=== PATIENT | female | born 1960 | race Caucasian/White ===

== ENCOUNTER 2016-10-07 09:00 | Inpatient (IN) ==
[~2016-10-07 09:00] MED LIST: ALBUTEROL 2.5 MG/3 ML NEB RESP TX ONE; FAMOTIDINE 20 MG TABLET PO ONE; IPRATROPIUM 500 MCG/2.5 ML NEB RESP TX ONE; LORazepam 1 MG TABLET PO ONE; VANCOMYCIN INJ 1,000 MG in SODIUM CHLORIDE 0.9% 250 ML IV ONE
[2016-10-07 09:40] LABS: Apearance,Urine CLEAR (Clear); Bacteria,Urine Occasional /HPF (Few); Bilirubin,Urine Negative (Negative); Blood, Urine Negative (Negative); Glucose,Urine (UA) Negative (Negative); Ketones,Urine Negative (Negative); Mucus,Urine Moderate /LPF (Occasional); Nitrite,Urine Negative (Negative); Protein,Urine Negative; RBC,Urine 1 /HPF (0-4); Squamous Epithelial Cell,Urine Occasional /HPF (0-10); Urine Color Yellow (Yellow); Urine Specific Gravity 1.023 (1.001-1.035); WBC,Urine 4 /HPF (0-6)
[2016-10-07] MEDS ORDERED: ceFAZolin 1,000 MG VIAL ONE (09:50)
[2016-10-07] MEDS ORDERED: VANCOMYCIN 1,000 MG VIAL ONE (09:50)
[2016-10-07] MEDS ORDERED: SODIUM CHLORIDE 0.9% 250 ML IV ONE (09:51)
[2016-10-07] MEDS ORDERED: LORazepam 1 MG TABLET ONE (09:51)
[2016-10-07] MEDS ORDERED: FAMOTIDINE 20 MG TABLET ONE (09:51)
[2016-10-07] MEDS ORDERED: SODIUM CHLORIDE 0.9% 100 ML IV ONE ×2 (09:51→13:44)
--- NOTE | 2016-10-07 10:06 | History and Physical Update ---
History and Physical Update - History and Physical H&P was reviewed, the patient examined and there: are no changes in the patients condition since last H&P was completed.
[2016-10-07] MEDS ORDERED: TRANEXAMIC ACID 1,000 MG/10 ML VIAL IV ONE (10:08)
[2016-10-07] MEDS ORDERED: BACITRACIN OINT 0.9 GM PACK TOP ONE ×2 (10:21→10:25)
[2016-10-07] MEDS ORDERED: LACTATED RINGERS 1,000 ML IV SCH ×2 (10:30→14:00)
[2016-10-07] MEDS ORDERED: MORPHINE 10 MG/10 ML VIAL ONE ×2 (11:30→13:45)
[2016-10-07] MEDS ORDERED: ROPIVACAINE 0.5% 30 ML VIAL ONE (11:50)
[2016-10-07] MEDS ORDERED: hydrOXYzine HCL 25 MG/1 ML VIAL IM PRN (11:59)
[2016-10-07] MEDS ORDERED: diphenhydrAMINE 50 MG/1 ML VIAL IV PRN (11:59)
[2016-10-07] MEDS ORDERED: ONDANSETRON 4 MG/2 ML VIAL IV PRN ×2 (11:59→13:57)
[2016-10-07] MEDS ORDERED: ALBUTEROL/IPRATROPIUM 3 ML NEB RESP TX PRN (13:28)
[2016-10-07] MEDS ORDERED: NITROGLYCERIN SL 0.4 MG TABLET SL PRN (13:28)
[2016-10-07] MEDS ORDERED: EPIPEN IM PRN (13:28)
[2016-10-07] MEDS ORDERED: oxyCODONE/ACETAMINOPHEN 5-325 MG TABLET PO PRN ×3 (13:28→13:31)
[2016-10-07] MEDS ORDERED: ALPRAZolam 0.5 MG TABLET PO PRN (13:28)
[2016-10-07] MEDS ORDERED: DEXTROSE 50% 25 GM/50 ML VIAL IV PRN ×2 (13:30→18:12)
[2016-10-07] MEDS ORDERED: GLUCAGON 1 MG VIAL IM PRN ×2 (13:30→18:12)
[2016-10-07] MEDS ORDERED: MAGNESIUM HYDROXIDE SUSP 30 ML UDCUP PO PRN (13:31)
[2016-10-07] MEDS ORDERED: MORPHINE 2 MG/1 ML SYRINGE IV PRN ×2 (13:31)
[2016-10-07] MEDS ORDERED: oxyCODONE IR 5 MG TABLET PO PRN (13:31)
[2016-10-07] MEDS ORDERED: diphenhydrAMINE CAP 25 MG CAPSULE PO PRN (13:31)
--- NOTE | 2016-10-07 13:35 | Operative Note ---
Date of procedure: 10/07/16 Procedure: DIAGNOSIS: Left knee primary osteoarthrosis PROCEDURE: Left total knee arthroplasty (cpt #11658) SURGEON: Anshu ANESTHESIA: Spinal with a postoperative adductor canal block PROCEDURE and FINDINGS: After adequate was induced, the patient's knee was prepped and draped in the usual sterile fashion. The limb was exsanguinated with Esmarch. Tourniquet was inflated to 300 mmHg. A median parapatellar approach was made. Femur was cut using an intramedullary guide and a 4 in 1 cutting jig in 5 degrees of valgus. ACL and menisci were excised. Tibia was cut using intramedullary guide. Patella was cut using freehand technique. Components were trialed. Tibial fin was prepared. Components are cemented in place using Palacos cement and modern cementing techniques. Cement was removed. A 1/8 inch Hemovac drain was placed. The knee was well-balanced and full range of motion with central tracking patella. Deep layers closed with 0-0 Vicryl. Superficial layers were closed with 2-0 and 3-0 Vicryl. Skin was approximated with godwin. Bacitracin and a sterile dressing was applied. Patient was transferred to recovery. A postoperative adductor canal block is anticipated. COMPONENTS: The Mike Persona system was used. 6 CR narrow femur, D natural tibia, 10 mm liner, 29 mm patella TOURNIQUET TIME: 42 minutes Surgeon / Physician: Frandy Brasher Jr. Discharge Plan - Discharge Medications No Action Esomeprazole Magnesium [Nexium] 40 mg PO DAILY Metoprolol Succinate 50 mg PO DAILY Fenofibrate [Tricor] 145 mg PO DAILY Insulin Glargine [Lantus] 50 unit SUBCUT BEDTIME Celecoxib [Celebrex] 200 mg PO BID buPROPion XL [Wellbutrin Xl] 300 mg PO DAILY ALPRAZolam [Xanax] 0.5 mg PO TID PRN PRN Reason: Anxiety Pravastatin [Pravachol] 40 mg PO BEDTIME Nitroglycerin Sl Tab [Nitrostat] 0.4 mg SL Q5M PRN PRN Reason: Chest Pain Montelukast Tab [Singulair Tab] 10 mg PO DAILY Campbell-3 Fatty Acids [Fish Oil Concentrate] 1,000 mg PO BID EPINEPHrine [Epipen 2-See] 0.3 mg IM DIRECTED PRN PRN Reason: Anaphylaxis Valsartan [Diovan] 40 mg PO DAILY Ipratropium/Albuterol Inhaler [Combivent Respimat Inhaler] 1 puff INH QID PRN PRN Reason: breathing Exenatide Microspheres [Bydureon Pen] 2 mg SQ Q7D Duloxetine HCl [Cymbalta] 60 mg PO DAILY Aspirin EC Tab 81 mg PO DAILY Pioglitazone HCl [Actos] 30 mg PO DAILY Albuterol Sulfate [Ventolin HFA] 1 puff INH Q6H PRN PRN Reason: Shortness Of Breath/Wheezing Baclofen Tab [Lioresal] 10 mg PO TID Glimepiride [Amaryl] 2 mg PO BID W/MEALS Pregabalin [Lyrica] 200 mg PO BID Oxycodone HCl/Acetaminophen [Percocet 7.5-325 mg Tablet] 1 each PO Q6HR PRN PRN Reason: Pain - Follow Up or Referral - Forms/Instructions
[2016-10-07] MEDS ORDERED: MIDAZOLAM 2 MG/2 ML VIAL ONE (13:43)
[2016-10-07] MEDS ORDERED: PROPOFOL 200 MG/20 ML VIAL IV ONE (13:43)
[2016-10-07] MEDS ORDERED: ACETAMINOPHEN 1,000 MG/100 ML VIAL IV ONE (13:44)
[2016-10-07] MEDS ORDERED: fentaNYL 100 MCG/2 ML VIAL ONE (13:44)
[2016-10-07] MEDS ORDERED: KETAMINE 500 MG/10 ML VIAL ONE (13:45)
[2016-10-07] MEDS ORDERED: HYDROmorphone 2 MG/1 ML VIAL IV PRN (13:57)
[2016-10-07] MEDS: KETOROLAC 30 MG/1 ML VIAL IV SCH ×2 (14:15→20:38)
[2016-10-07] MEDS: INSULIN LISPRO 100 UNIT/ML SUBCUT SCH ×2 (17:00→20:47)
[2016-10-07] MEDS: ACETAMINOPHEN 500 MG TABLET PO SCH ×2 (17:02→23:03)
[2016-10-07] MEDS: GLIMEPIRIDE 2 MG TABLET PO SCH (17:03)
[2016-10-07] MEDS: BACLOFEN 10 MG TABLET PO SCH ×2 (17:03→20:40)
--- NOTE | 2016-10-07 17:45 | Anesthesia Post-Op ---
Anesthesia Post OP - Post Ansesthetic Evaluation Patient seen in post op: Yes Resp: within normal limits CV: within normal limits Mental: within normal limits Temp: within normal limits [id number]: within normal limits Nausea and Vomiting: within normal limits Pain: within normal limits
[2016-10-07] MEDS ORDERED: ALBUTEROL 2.5 MG/3 ML NEB RESP TX PRN (19:00)
--- NOTE | 2016-10-07 19:04 | XRay Report ---
Left knee, 2 views. Indication: Postoperative. Surgical skin godwin and drains project over the soft tissues. There has been a total knee replacement. The hardware is in good position. There is no evidence of acute fracture or dislocation. Impression: Expected postoperative appearance. PROCEDURE INTERPRETED AT [facility] DEPARTMENT OF RADIOLOGY Final Report Signed by: Dr. Gladis Torre
[2016-10-07] MEDS: LACTATED RINGERS 1,000 ML IV SCH (20:38)
[2016-10-07] MEDS: DOCUSATE SODIUM 100 MG CAPSULE PO SCH (20:40)
[2016-10-07] MEDS: PREGABALIN 100 MG CAPSULE PO SCH (20:41)
[2016-10-07] MEDS: OMEGA 3 ACID ETHYL ESTERS 1 GM CAPSULE PO SCH (20:41)
[2016-10-07] MEDS: ceFAZolin 2,000 MG in PREMIX 1 EACH IV SCH (20:44)
[2016-10-07] MEDS: INSULIN GLARGINE 100 UNIT/ML SUBCUT SCH (20:47)
--- NOTE | 2016-10-07 21:06 | Pulmonology Progress Note ---
Pulmonary - PN: Subj Interval history: Is a 56-year-old white female who had a total knee replacement earlier today. Overall the patient is doing well. She is complaining of a liquid diet. Pain appears to be under good control. Patient's main problems have been COPD, asthma, diabetes mellitus, hyperlipidemia, high blood pressure, mitral regurgitation, sleep apnea, and gastroesophageal reflux disease. Her primary care physician's Dr. Dotty Dow. 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 Jeromy Rubio. She is seen in GI consultation the past by Dr. Kevin Jessica. The patient's medicines have been restarted Physical exam. Vital signs. See below Chest is clear Heart no gallop Abdomen obese. Positive bowel sounds Extremities. Nothing to suggest deep venous thrombophlebitis Neurologic. Cranial nerves are intact long track motor functions intact. The remainder of exam is negative. Plan. 1. Agree with medicines. 2. Continue home medicines Exam (Progress Note) - Constitutional Vitals: Period Temp Pulse Resp BP Sys/Lowery Pulse Ox Last 24 Hr 97.1 F-98.3 F 61-80 8-22 99-167/64-99 93-100
[2016-10-07] MEDS ORDERED: VANCOMYCIN INJ 1,000 MG in SODIUM CHLORIDE 0.9% 250 ML IV ONE (23:30)
[2016-10-08] MEDS: KETOROLAC 30 MG/1 ML VIAL IV SCH ×2 (01:01→09:31)
[2016-10-08] MEDS: LACTATED RINGERS 1,000 ML IV SCH (01:41)
[2016-10-08] MEDS: ceFAZolin 2,000 MG in PREMIX 1 EACH IV SCH (03:23)
[2016-10-08] MEDS: ACETAMINOPHEN 500 MG TABLET PO SCH ×2 (05:05→11:37)
[2016-10-08 06:21] LABS: Basophils % 0.2 % (0.0-0.8); Eosinophils # 0.1 10*3/uL (0.0-0.87); Eosinophils % 2.9 % (0.00-10.9); Hematocrit 32.5 VOL% (35.7-47.0); Hemoglobin 10.8 GM/DL (12.0-16.0); Immature Granulocytes % 0.5 %; Immature Granulocytes Absolute 0.02 #; Lymphocytes # 1.2 10*3/uL (1.4-4.0); Lymphocytes % 27.1 % (21.3-54.2); Mean Corpuscular HGB Conc 33.2 GM/DL (32-36); Mean Corpuscular Hemoglobin 30 PG (27-34); Mean Corpuscular Volume 91.3 FL (87-102); Mean Platelet Volume 9.9 FL (9.6-12.0); Monocytes # 0.5 10*3/uL (0.11-0.8); Monocytes % 10.4 % (1.7-12.7); Neutrophils # 2.6 10*3/uL (1.4-7.4); Neutrophils % 58.9 % (38.7-73.9); Platelet Count 211 T/CUMM (130-400); Red Blood Count 3.56 MC/CUMM (3.8-5.5); Red Cell Distribution Width 13.2 % (9.3-17.3); White Blood Count 4.4 T/CUMM (4-12)
[2016-10-08 06:47] LABS: Calcium 8.2 MG/DL (8.5-10.1); Potassium 4.4 MMOL/L (3.5-5.1)
--- NOTE | 2016-10-08 07:27 | Orthopedic Progress Note ---
Orthopedics - Subjective Interval history: comfortable. nv ok. dressing intact. mobilize with therapy. plan home with hh. Exam - Constitutional Vitals: Period Temp Pulse Resp BP Sys/Lowery Pulse Ox Last 24 Hr 97.1 F-98.3 F 61-85 8-22 99-167/64-99 93-100 Results - Labs CBC & BMP: 10/08/16 06:02 10/08/16 06:02
[2016-10-08] MEDS: INSULIN LISPRO 100 UNIT/ML SUBCUT SCH ×4 (07:57→21:37)
[2016-10-08] MEDS ORDERED: FENOFIBRATE 145 MG TABLET PO SCH ×2 (09:00→21:00)
[2016-10-08] MEDS ORDERED: KETOROLAC 30 MG/1 ML VIAL ONE (09:27)
[2016-10-08] MEDS: BACLOFEN 10 MG TABLET PO SCH ×3 (09:31→21:36)
[2016-10-08] MEDS: PREGABALIN 100 MG CAPSULE PO SCH ×2 (09:31→21:36)
[2016-10-08] MEDS: PIOGLITAZONE 15 MG TABLET PO SCH (09:31)
[2016-10-08] MEDS: DULoxetine 30 MG CAPSULE PO SCH (09:31)
[2016-10-08] MEDS: FONDAPARINUX 2.5 MG/0.5 ML SYRINGE SUBCUT SCH (09:31)
[2016-10-08] MEDS: DOCUSATE SODIUM 100 MG CAPSULE PO SCH ×2 (09:32→21:36)
[2016-10-08] MEDS: PANTOPRAZOLE 40 MG TABLET PO SCH (09:32)
[2016-10-08] MEDS: OMEGA 3 ACID ETHYL ESTERS 1 GM CAPSULE PO SCH ×2 (09:32→21:36)
[2016-10-08] MEDS: GLIMEPIRIDE 2 MG TABLET PO SCH ×2 (09:32→16:28)
[2016-10-08] MEDS: VALSARTAN 80 MG TABLET PO SCH (09:32)
[2016-10-08] MEDS: METOPROLOL SUCCINATE XL 50 MG TABLET PO SCH (09:32)
[2016-10-08] MEDS: MONTELUKAST 10 MG TABLET PO SCH (09:32)
--- NOTE | 2016-10-08 10:13 | Pulmonology Progress Note ---
Pulmonary - PN: Subj Interval history: Is a 56-year-old white female who had a total knee replacement earlier today. Overall the patient is doing well. She is complaining of a liquid diet. Pain appears to be under good control. Patient's main problems have been COPD, asthma, diabetes mellitus, hyperlipidemia, high blood pressure, mitral regurgitation, sleep apnea, and gastroesophageal reflux disease. Her primary care physician's Dr. Dotty Dow. 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 Jeromy Rubio. She is seen in GI consultation the past by Dr. Kevin Jessica. The patient's medicines have been restarted 10/08/2016. This lady is up and about. She appears to be doing well and she has no new complaints. Her H&H is 10.8/32.5. She is afebrile. Electrolytes are normal. Creatinine is 0.7 BUNs 20 glucoses are under good control. Reflux has not been a problem and her breathing has done well. Physical exam. Vital signs. See below Chest is clear Heart no gallop Abdomen obese. Positive bowel sounds Extremities. Nothing to suggest deep venous thrombophlebitis Neurologic. Cranial nerves are intact long track motor functions intact. The remainder of exam is negative. Plan. 10/07/2016 1. Agree with medicines. 2. Continue home medicines 10/08/2016. 1. See my note above 2. Doing well 3. CBC is normal Exam (Progress Note) - Constitutional Vitals: Period Temp Pulse Resp BP Sys/Lowery Pulse Ox Last 24 Hr 97.1 F-98.3 F 61-85 8-20 99-167/64-99 93-100 Results - Labs CBC & BMP: 10/08/16 06:02 10/08/16 06:02
[2016-10-08] MEDS: INSULIN GLARGINE 100 UNIT/ML SUBCUT SCH (21:36)
[2016-10-08] MEDS: CELECOXIB 200 MG CAPSULE PO SCH (21:36)
[2016-10-08] MEDS: oxyCODONE IR 5 MG TABLET PO PRN (22:29)
[2016-10-09 06:16] LABS: Basophils % 0.2 % (0.0-0.8); Eosinophils # 0.2 10*3/uL (0.0-0.87); Eosinophils % 3.5 % (0.00-10.9); Hematocrit 31.9 VOL% (35.7-47.0); Hemoglobin 10.4 GM/DL (12.0-16.0); Immature Granulocytes % 0.2 %; Immature Granulocytes Absolute 0.01 #; Lymphocytes # 1.7 10*3/uL (1.4-4.0); Lymphocytes % 35.2 % (21.3-54.2); Mean Corpuscular HGB Conc 32.6 GM/DL (32-36); Mean Corpuscular Hemoglobin 30 PG (27-34); Mean Corpuscular Volume 91.1 FL (87-102); Monocytes # 0.7 10*3/uL (0.11-0.8); Monocytes % 13.7 % (1.7-12.7); Neutrophils # 2.3 10*3/uL (1.4-7.4); Neutrophils % 47.2 % (38.7-73.9); Platelet Count 207 T/CUMM (130-400); Red Cell Distribution Width 13.2 % (9.3-17.3); White Blood Count 4.9 T/CUMM (4-12)
[2016-10-09] MEDS: oxyCODONE IR 5 MG TABLET PO PRN (06:42)
[2016-10-09 06:43] LABS: Hypochromasia 1+; Microcytosis Slight; Platelet Estimate Normal
--- NOTE | 2016-10-09 07:34 | Discharge Summary ---
Hospital Course - Hospital Course Hospital Course: Kriss Weinberg was admitted after undergoing an uncomplicated left total knee arthroplasty. She received perioperative DVT and antimicrobial prophylaxis. She received physical therapy. She was discharged home postoperative day #2 in stable condition. Her dressing is clean, dry and intact. Left lower exam is neurovascular change. Active range of motion today is exceptional from 5 215. She can perform straight leg raise. Discharge Plan - Discharge Data Disposition: Home Health Service Condition at Discharge: Stable Discharge Diet: diabetic diet Hygiene: may shower Weight Bearing at Discharge: weight bear as tolerated - Discharge Medications Continue Esomeprazole Magnesium [Nexium] 40 mg PO DAILY Metoprolol Succinate 50 mg PO DAILY Fenofibrate [Tricor] 145 mg PO DAILY Insulin Glargine [Lantus] 50 unit SUBCUT BEDTIME Celecoxib [Celebrex] 200 mg PO BID buPROPion XL [Wellbutrin Xl] 300 mg PO DAILY ALPRAZolam [Xanax] 0.5 mg PO TID PRN PRN Reason: Anxiety Pravastatin [Pravachol] 40 mg PO BEDTIME Nitroglycerin Sl Tab [Nitrostat] 0.4 mg SL Q5M PRN PRN Reason: Chest Pain Montelukast Tab [Singulair Tab] 10 mg PO DAILY Anton-3 Fatty Acids [Fish Oil Concentrate] 1,000 mg PO BID EPINEPHrine [Epipen 2-See] 0.3 mg IM ONCE PRN PRN Reason: Allergic Reaction Valsartan [Diovan] 40 mg PO DAILY Ipratropium/Albuterol Inhaler [Combivent Respimat Inhaler] 1 puff INH QID PRN PRN Reason: breathing Exenatide Microspheres [Bydureon Pen] 2 mg SQ PANCHAL Duloxetine HCl [Cymbalta] 60 mg PO DAILY Aspirin EC Tab 81 mg PO DAILY Pioglitazone HCl [Actos] 30 mg PO DAILY Albuterol Sulfate [Ventolin HFA] 1 puff INH Q6H PRN PRN Reason: Shortness Of Breath/Wheezing Baclofen Tab [Lioresal] 10 mg PO TID Glimepiride [Amaryl] 2 mg PO BID W/MEALS Pregabalin [Lyrica] 200 mg PO BID Oxycodone HCl/Acetaminophen [Percocet 7.5-325 mg Tablet] 1 each PO Q6HR PRN PRN Reason: Pain - Follow Up or Referral - Forms/Instructions Additional Discharge Instructions: Daily dry dressing changes. Weightbearing as tolerated. CPM for 3 weeks. Arrange walker and bedside commode for home use. Wear BREONNA hose for 1 month. Discontinue godwin and Steri-Strip wound on October 19, 2016. Follow-up appointment in 4 weeks. Prescription for Percocet 10 with 30 tablets was written. Exam - Constitutional Vitals: Period Temp Pulse Resp BP Sys/Lowery Pulse Ox Last 24 Hr 96.4 F-98.8 F 76-83 18-20 93-132/55-73 92-97 Discharge Results Procedures and tests throughout hospitalization: Pending Orders 10/10/16 04:00 Comp Blood Count Auto Diff IN AM Labs on day of discharge: Labs from last 24 hours 10/09/16 10/09/16 10/08/16 07:11 05:39 20:18 WBC 4.9 RBC 3.50 L Hgb 10.4 L Hct 31.9 L MCV 91.1 MCH 30 MCHC 32.6 RDW 13.2 Plt Count 207 MPV 10.0 Neut % (Auto) 47.2 Lymph % (Auto) 35.2 [place] % (Auto) 13.7 H Eos % (Auto) 3.5 Baso % (Auto) 0.2 Neut # (Auto) 2.3 Lymph # (Auto) 1.7 [place] # (Auto) 0.7 Eos # (Auto) 0.2 Baso # (Auto) 0.0 Immature Gran % 0.2 Nucleated RBC % 0.0 Immature Gran # 0.01 Nucleated RBCs # 0.00 Platelet Estimate Normal Hypochromasia 1+ Microcytosis Slight POC Glucose 96 192 H 10/08/16 10/08/16 15:23 11:04 WBC RBC Hgb Hct MCV MCH MCHC RDW Plt Count MPV Neut % (Auto) Lymph % (Auto) [place] % (Auto) Eos % (Auto) Baso % (Auto) Neut # (Auto) Lymph # (Auto) [place] # (Auto) Eos # (Auto) Baso # (Auto) Immature Gran % Nucleated RBC % Immature Gran # Nucleated RBCs # Platelet Estimate Hypochromasia Microcytosis POC Glucose 148 H 180 H DS: Provider Date of admission: 10/07/16 09:00 Primary care physician: Dotty Dow M.D. Attending physician on admission: Frandy Brasher Jr., Consults: 10/07/16 13:31 Consult to Case Mgmt/Social Srvs [CONS] Routine Reason for Case Mgmt/Social Srvs: Rehab Home Health Equipment Consult Comment: [employer] deliver to patient for home rehab, july D/C tomorrow. Consult to Occupational Therapy [CONS] Routine Reason for Occupational Therapy: Evaluate and Treat Consult Comment: ADL's Consult to Physical Therapy [CONS] Routine Reason for Physical Therapy: Evaluate and Treat Gait Training Start Therapy: Today 10/07/16 14:54 Consult to Physician [CONS] Routine Comment: Consulting Provider: Francisco Beckham Consulting Provider Notified: Yes When should Consulting Provider be notified: Now Person Notified: esteban franklin Date Notified: 10/07/16 Time Notified: 14:55 Discharging clinician: Frandy Brasher Jr., Expected date of discharge: 10/09/16
[2016-10-09] MEDS: INSULIN LISPRO 100 UNIT/ML SUBCUT SCH ×2 (08:15→13:23)
[2016-10-09] MEDS: FONDAPARINUX 2.5 MG/0.5 ML SYRINGE SUBCUT SCH (09:32)
[2016-10-09] MEDS: DULoxetine 30 MG CAPSULE PO SCH (09:32)
[2016-10-09] MEDS: VALSARTAN 80 MG TABLET PO SCH ×2 (09:33→09:37)
[2016-10-09] MEDS: GLIMEPIRIDE 2 MG TABLET PO SCH (09:33)
[2016-10-09] MEDS: PANTOPRAZOLE 40 MG TABLET PO SCH (09:33)
[2016-10-09] MEDS: MONTELUKAST 10 MG TABLET PO SCH (09:33)
[2016-10-09] MEDS: PIOGLITAZONE 15 MG TABLET PO SCH (09:33)
[2016-10-09] MEDS: METOPROLOL SUCCINATE XL 50 MG TABLET PO SCH (09:33)
[2016-10-09] MEDS: PREGABALIN 100 MG CAPSULE PO SCH (09:33)
[2016-10-09] MEDS: BACLOFEN 10 MG TABLET PO SCH (09:33)
[2016-10-09] MEDS: DOCUSATE SODIUM 100 MG CAPSULE PO SCH (09:34)
[2016-10-09] MEDS: OMEGA 3 ACID ETHYL ESTERS 1 GM CAPSULE PO SCH (10:09)
[2016-10-09] MEDS: CELECOXIB 200 MG CAPSULE PO SCH (10:09)
--- NOTE | 2016-10-09 10:55 | Pulmonology Progress Note ---
Pulmonary - PN: Subj Interval history: Is a 56-year-old white female who had a total knee replacement earlier today. Overall the patient is doing well. She is complaining of a liquid diet. Pain appears to be under good control. Patient's main problems have been COPD, asthma, diabetes mellitus, hyperlipidemia, high blood pressure, mitral regurgitation, sleep apnea, and gastroesophageal reflux disease. Her primary care physician's Dr. Dotty Dow. 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 Jeromy Rubio. She is seen in GI consultation the past by Dr. Kevin Jessica. The patient's medicines have been restarted 10/08/2016. This lady is up and about. She appears to be doing well and she has no new complaints. Her H&H is 10.8/32.5. She is afebrile. Electrolytes are normal. Creatinine is 0.7 BUNs 20 glucoses are under good control. Reflux has not been a problem and her breathing has done well. 10/09/2016. H&H is stable. Patient's up and about moving in his main unusually good progress. She had questions about her Singulair. Vascular continue this. In the past she has had significant wheezing but this is done very well during this hospitalization. Patient's reflux is under good control. She is for discharge later on today and I agree. I will sign off. Physical exam. Vital signs. See below Chest is clear Heart no gallop Abdomen obese. Positive bowel sounds Extremities. Nothing to suggest deep venous thrombophlebitis Neurologic. Cranial nerves are intact long track motor functions intact. The remainder of exam is negative. Plan. 10/07/2016 1. Agree with medicines. 2. Continue home medicines 10/08/2016. 1. See my note above 2. Doing well 3. CBC is normal 10/09/2016. 1. See my note above. 2. Agree with plans. We will sign off. Reconsult as needed Exam (Progress Note) - Constitutional Vitals: Period Temp Pulse Resp BP Sys/Lowery Pulse Ox Last 24 Hr 96.4 F-98.8 F 76-83 18-20 93-132/55-73 92-97 Results - Labs CBC & BMP: 10/09/16 05:39 10/08/16 06:02 Specialty Discharge - Follow Up or Referrals Follow up with: Frandy Brasher Jr., MD [Physician] - 11/07/16 8:45 am
[2016-10-09 11:40] VITALS: BP 96/65
--- NOTE | 2016-10-09 13:20 | Pathology Report from [facility] ---
[facility] [place] : [id number] PATIENT NAME : Kriss Weinberg ORDERING DR : DANTE SAMUEL MD CLINICAL HX: Left knee osteoarthritis POST-OP DX: Same SPECIMEN INFO: Left knee bone and tissue GROSS DESCRIPTION: The specimen is received in formalin labeled with the patients name and consists of multiple fragments of bone, soft tissue and cartilage. The articular surfaces are focally degenerative with large areas of subchondral eburnation seen. Kiln [employer] Helper tissue submitted in one cassette. DIAGNOSIS FOR KRISS WEINBERG: LEFT KNEE, TOTAL REPLACEMENT: Fragments of bone and cartilage with changes of degenerative joint disease/ osteoarthritis. COLLECTED DATE: 10/07/2016 [facility] REPORT DATE: 10/08/2016 ELECTRONICALLY SIGNED BY: Denise Menon M.D. 10/08/2016 - 11:35:20 [facility]
[2016-10-13] MEDS ORDERED: BYDUREON 2 MG SQ SCH (12:20)
== END 2016-10-09 14:29 | disposition home health service (06) | DRG 470 ==
LOC: N.3E 09:00 → N.SDSINP 09:24 → N.3E 14:35
PROVIDERS: ADMIT Orthopaedic Surgery; ATTEND Orthopaedic Surgery

== ENCOUNTER 2017-03-16 12:48 | Inpatient (IN) ==
[2017-03-16] MEDS ORDERED: ALBUTEROL/IPRATROPIUM 3 ML NEB RESP TX STA (14:59)
[2017-03-16] MEDS ORDERED: methylPREDNISolone SOD SUC 125 MG/2 ML VIAL IV STA (14:59)
[2017-03-16] MEDS ORDERED: methylPREDNISolone SOD SUC 125 MG/2 ML VIAL ONE (15:28)
[2017-03-16 15:32] LABS: Basophils % 0.3 % (0.0-0.8); Eosinophils # 0.1 10*3/uL (0.0-0.87); Eosinophils % 1.8 % (0.00-10.9); Hematocrit 40.4 VOL% (35.7-47.0); Hemoglobin 14.1 GM/DL (12.0-16.0); Immature Granulocytes % 0.4 %; Immature Granulocytes Absolute 0.03 #; Lymphocytes # 2.4 10*3/uL (1.4-4.0); Mean Corpuscular HGB Conc 34.9 GM/DL (32-36); Mean Corpuscular Hemoglobin 30 PG (27-34); Mean Corpuscular Volume 86.7 FL (87-102); Mean Platelet Volume 10.7 FL (9.6-12.0); Monocytes # 0.5 10*3/uL (0.11-0.8); Monocytes % 6.9 % (1.7-12.7); Neutrophils # 4.6 10*3/uL (1.4-7.4); Neutrophils % 59.6 % (38.7-73.9); Platelet Count 286 T/CUMM (130-400); Red Blood Count 4.66 MC/CUMM (3.8-5.5); Red Cell Distribution Width 13.2 % (9.3-17.3); White Blood Count 7.7 T/CUMM (4-12)
[2017-03-16 15:44] LABS: INR 0.9; PT Patient Result 9.6 SECS
[2017-03-16 15:54] LABS: Alanine Aminotransferase 33 U/L (13-56); Albumin 3.4 G/DL (3.4-5.0); Alkaline Phosphatase 141 U/L (45-117); Aspartate Amino Transferase 21 U/L (0-37); Bilirubin,Total < 0.39 MG/DL (0.2-1.0); Blood Urea Nitrogen 11 MG/DL (7-18); Calcium 9.4 MG/DL (8.5-10.1); Glucose 367 MG/DL (74-106); Potassium 3.9 MMOL/L (3.5-5.1); Sodium 136 MMOL/L (136-145); Total Protein 7.5 G/DL (6.4-8.3); Troponin I Only < 0.015 NG/ML (0.00-0.045)
[2017-03-16 19:01] LABS: Apearance,Urine CLEAR (Clear); Bilirubin,Urine Negative (Negative); Blood, Urine Negative (Negative); Glucose,Urine (UA) >=500 mg/dL (Negative); Ketones,Urine Negative (Negative); Mucus,Urine Occasional /LPF (Occasional); Nitrite,Urine Negative (Negative); Protein,Urine Negative; RBC,Urine <1 /HPF (0-4); Squamous Epithelial Cell,Urine Occasional /HPF (0-10); Urine Color Straw (Yellow); Urine Specific Gravity 1.036 (1.001-1.035); Urine Urobilinogen < 2.0 EU/DL (0.2-1.0); WBC,Urine <1 /HPF (0-6)
[2017-03-16] MEDS ORDERED: ACETAMINOPHEN 325 MG TABLET PO PRN (19:46)
[2017-03-16] MEDS ORDERED: ONDANSETRON 4 MG/2 ML VIAL IV PRN (19:46)
[2017-03-16] MEDS ORDERED: GLUCAGON 1 MG VIAL IM PRN (19:46)
[2017-03-16] MEDS ORDERED: ZALEPLON 5 MG CAPSULE PO PRN (19:46)
[2017-03-16] MEDS ORDERED: DEXTROSE 50% 25 GM/50 ML VIAL IV PRN (19:46)
[2017-03-16] MEDS: INSULIN REGULAR 100 UNIT/ML SUBCUT SCH (23:07)
[2017-03-16] MEDS ORDERED: NITROGLYCERIN SL 0.4 MG TABLET SL PRN (23:30)
[2017-03-16] MEDS ORDERED: VALSARTAN 80 MG TABLET PO PRN (23:30)
[2017-03-16] MEDS ORDERED: ALBUTEROL 2.5 MG/3 ML NEB RESP TX PRN (23:30)
[2017-03-16] MEDS ORDERED: ALBUTEROL/IPRATROPIUM 3 ML NEB RESP TX PRN (23:30)
[2017-03-16] MEDS ORDERED: ALPRAZolam 0.5 MG TABLET PO PRN (23:30)
[2017-03-16] MEDS: CELECOXIB 200 MG CAPSULE PO SCH (23:59)
[2017-03-17] MEDS: ALBUTEROL/IPRATROPIUM 3 ML NEB RESP TX SCH ×4 (00:22→19:45)
[2017-03-17] MEDS: INSULIN GLARGINE 100 UNIT/ML SUBCUT SCH ×3 (02:07→21:37)
[2017-03-17] MEDS: INSULIN REGULAR 100 UNIT/ML SUBCUT SCH ×5 (02:14→21:37)
[2017-03-17 06:16] LABS: Albumin 3.5 G/DL (3.4-5.0); Bilirubin,Total 0.5 MG/DL (0.2-1.0); Calcium 9.4 MG/DL (8.5-10.1); Total Protein 6.9 G/DL (6.4-8.3)
[2017-03-17] MEDS ORDERED: NON-FORMULARY MEDICATION (Omeprazole [Omeprazole] 20 MG) PO SCH (09:00)
[2017-03-17] MEDS ORDERED: BLACK COHOSH 540 MG PO SCH (09:00)
[2017-03-17] MEDS: DULoxetine 30 MG CAPSULE PO SCH (10:16)
[2017-03-17] MEDS: GLIMEPIRIDE 4 MG TABLET PO SCH ×2 (10:17→16:58)
[2017-03-17] MEDS: OMEGA 3 ACID ETHYL ESTERS 1 GM CAPSULE PO SCH ×3 (10:18→21:37)
[2017-03-17] MEDS: CELECOXIB 200 MG CAPSULE PO SCH ×2 (10:19→21:37)
[2017-03-17] MEDS: PREGABALIN 100 MG CAPSULE PO SCH ×3 (10:19→21:37)
[2017-03-17] MEDS: CALCIUM (CARBONATE)/VITAMIN D 500 MG-200 UNIT TABLET PO SCH (10:19)
[2017-03-17] MEDS: MONTELUKAST 10 MG TABLET PO SCH (10:19)
[2017-03-17] MEDS: PANTOPRAZOLE 40 MG TABLET PO SCH (10:20)
[2017-03-17] MEDS: METOPROLOL SUCCINATE XL 50 MG TABLET PO SCH (10:20)
[2017-03-17 11:59] LABS: INR 0.9; PT Patient Result 9.8 SECS
[2017-03-17] MEDS: oxyCODONE/ACETAMINOPHEN 5-325 MG TABLET PO PRN ×2 (16:40→23:14)
[2017-03-17 18:05] LABS: Eosinophils,Pleural Fluid 1 %; Lymphocytes,Pleural Fluid 98 %; Neutrophils,Pleural Fluid 1 %
[2017-03-17 18:06] LABS: RBC,Pleural Fluid 7227 T/CUMM
[2017-03-17] MEDS: FENOFIBRATE 145 MG TABLET PO SCH (21:36)
[2017-03-17] MEDS: PRAVASTATIN 40 MG TABLET PO SCH ×2 (21:37)
[2017-03-17] MEDS: ASPIRIN EC 81 MG TABLET PO SCH ×2 (21:37→21:42)
[2017-03-18] MEDS: ALBUTEROL/IPRATROPIUM 3 ML NEB RESP TX SCH ×4 (00:35→20:15)
[2017-03-18 05:18] LABS: Basophils % 0.3 % (0.0-0.8); Eosinophils # 0.1 10*3/uL (0.0-0.87); Eosinophils % 1.3 % (0.00-10.9); Hematocrit 38.6 VOL% (35.7-47.0); Hemoglobin 12.6 GM/DL (12.0-16.0); Immature Granulocytes % 0.3 %; Immature Granulocytes Absolute 0.02 #; Lymphocytes # 2.4 10*3/uL (1.4-4.0); Lymphocytes % 34.3 % (21.3-54.2); Mean Corpuscular HGB Conc 32.6 GM/DL (32-36); Mean Corpuscular Hemoglobin 30 PG (27-34); Mean Corpuscular Volume 90.8 FL (87-102); Mean Platelet Volume 10.8 FL (9.6-12.0); Monocytes # 0.5 10*3/uL (0.11-0.8); Monocytes % 6.9 % (1.7-12.7); Neutrophils % 56.9 % (38.7-73.9); Platelet Count 254 T/CUMM (130-400); Red Blood Count 4.25 MC/CUMM (3.8-5.5); Red Cell Distribution Width 13.3 % (9.3-17.3); White Blood Count 7.1 T/CUMM (4-12)
[2017-03-18 05:23] LABS: INR 0.9; PT Patient Result 9.6 SECS; Partial Thromboplastin Time 24.7 SECS (0-40)
[2017-03-18] MEDS ORDERED: MEPERIDINE 50 MG/1 ML VIAL IM ONE (08:30)
[2017-03-18] MEDS ORDERED: BENZONATATE 100 MG CAPSULE PO ONE (08:30)
[2017-03-18] MEDS ORDERED: diphenhydrAMINE 50 MG/1 ML VIAL IM ONE (08:30)
[2017-03-18] MEDS ORDERED: LIDOCAINE 2% VISCOUS 100 ML BOTTLE SWISH/SPIT ONE (09:00)
[2017-03-18] MEDS ORDERED: LIDOCAINE 2% 20 ML VIAL RESP TX ONE (09:00)
[2017-03-18] MEDS ORDERED: LIDOCAINE 1% 20 ML VIAL MISC INJ ONE (09:00)
[2017-03-18] MEDS: INSULIN REGULAR 100 UNIT/ML SUBCUT SCH ×4 (09:14→21:52)
[2017-03-18] MEDS: CELECOXIB 200 MG CAPSULE PO SCH ×2 (09:16→21:49)
[2017-03-18] MEDS: GLIMEPIRIDE 4 MG TABLET PO SCH ×2 (09:16→17:13)
[2017-03-18] MEDS: OMEGA 3 ACID ETHYL ESTERS 1 GM CAPSULE PO SCH ×2 (09:16→21:49)
[2017-03-18] MEDS: DULoxetine 30 MG CAPSULE PO SCH (09:16)
[2017-03-18] MEDS: PREGABALIN 100 MG CAPSULE PO SCH ×2 (09:16→21:49)
[2017-03-18] MEDS: CALCIUM (CARBONATE)/VITAMIN D 500 MG-200 UNIT TABLET PO SCH (09:17)
[2017-03-18] MEDS: PANTOPRAZOLE 40 MG TABLET PO SCH (09:17)
[2017-03-18] MEDS: METOPROLOL SUCCINATE XL 50 MG TABLET PO SCH (09:18)
[2017-03-18] MEDS: MONTELUKAST 10 MG TABLET PO SCH (09:18)
[2017-03-18] MEDS ORDERED: MIDAZOLAM 2 MG/2 ML VIAL IV ONE (10:00)
[2017-03-18] MEDS ORDERED: EPINEPHrine 1 MG/ML VIAL ET ONE (10:10)
[2017-03-18] MEDS ORDERED: EPINEPHrine 1 MG/ML VIAL ONE (10:20)
[2017-03-18] MEDS: ASPIRIN EC 81 MG TABLET PO SCH (21:48)
[2017-03-18] MEDS: PRAVASTATIN 40 MG TABLET PO SCH (21:50)
[2017-03-18] MEDS: INSULIN GLARGINE 100 UNIT/ML SUBCUT SCH (21:50)
[2017-03-18] MEDS: FENOFIBRATE 145 MG TABLET PO SCH (21:50)
[2017-03-19] MEDS: ALBUTEROL/IPRATROPIUM 3 ML NEB RESP TX SCH ×4 (00:50→20:32)
[2017-03-19] MEDS: CELECOXIB 200 MG CAPSULE PO SCH ×2 (08:45→20:24)
[2017-03-19] MEDS: PANTOPRAZOLE 40 MG TABLET PO SCH (08:45)
[2017-03-19] MEDS: METOPROLOL SUCCINATE XL 50 MG TABLET PO SCH (08:46)
[2017-03-19] MEDS: DULoxetine 30 MG CAPSULE PO SCH (08:46)
[2017-03-19] MEDS: MONTELUKAST 10 MG TABLET PO SCH (08:46)
[2017-03-19] MEDS: PREGABALIN 100 MG CAPSULE PO SCH ×2 (08:47→20:23)
[2017-03-19] MEDS: GLIMEPIRIDE 4 MG TABLET PO SCH ×2 (08:47→16:55)
[2017-03-19] MEDS: CALCIUM (CARBONATE)/VITAMIN D 500 MG-200 UNIT TABLET PO SCH (08:47)
[2017-03-19] MEDS: OMEGA 3 ACID ETHYL ESTERS 1 GM CAPSULE PO SCH ×2 (08:48→20:23)
[2017-03-19] MEDS: INSULIN REGULAR 100 UNIT/ML SUBCUT SCH ×4 (08:48→23:09)
[2017-03-19] MEDS: FENOFIBRATE 145 MG TABLET PO SCH (20:23)
[2017-03-19] MEDS: PRAVASTATIN 40 MG TABLET PO SCH (20:24)
[2017-03-19] MEDS: tiZANidine 4 MG TABLET PO SCH ×2 (20:24→23:09)
[2017-03-19] MEDS: ASPIRIN EC 81 MG TABLET PO SCH (20:24)
[2017-03-19] MEDS: INSULIN GLARGINE 100 UNIT/ML SUBCUT SCH (23:08)
[2017-03-20] MEDS: ALBUTEROL/IPRATROPIUM 3 ML NEB RESP TX SCH ×4 (02:05→20:23)
[2017-03-20] MEDS: METOPROLOL SUCCINATE XL 50 MG TABLET PO SCH (09:56)
[2017-03-20] MEDS: DULoxetine 30 MG CAPSULE PO SCH (09:56)
[2017-03-20] MEDS: MONTELUKAST 10 MG TABLET PO SCH (09:56)
[2017-03-20] MEDS: GLIMEPIRIDE 4 MG TABLET PO SCH ×2 (09:57→18:14)
[2017-03-20] MEDS: tiZANidine 4 MG TABLET PO SCH ×2 (09:57→22:36)
[2017-03-20] MEDS: OMEGA 3 ACID ETHYL ESTERS 1 GM CAPSULE PO SCH ×2 (09:58→22:25)
[2017-03-20] MEDS: PREGABALIN 100 MG CAPSULE PO SCH ×2 (09:58→22:24)
[2017-03-20] MEDS: CELECOXIB 200 MG CAPSULE PO SCH ×2 (09:58→22:23)
[2017-03-20] MEDS: PANTOPRAZOLE 40 MG TABLET PO SCH (09:58)
[2017-03-20] MEDS: CALCIUM (CARBONATE)/VITAMIN D 500 MG-200 UNIT TABLET PO SCH (09:59)
[2017-03-20] MEDS: INSULIN REGULAR 100 UNIT/ML SUBCUT SCH ×4 (10:00→22:29)
[2017-03-20] MEDS: MUPIROCIN 2% OINT 22 GM TUBE TOP SCH ×2 (11:57→22:29)
[2017-03-20] MEDS: INSULIN GLARGINE 100 UNIT/ML SUBCUT SCH (22:25)
[2017-03-20] MEDS: PRAVASTATIN 40 MG TABLET PO SCH (22:25)
[2017-03-20] MEDS: ASPIRIN EC 81 MG TABLET PO SCH (22:25)
[2017-03-20] MEDS: FENOFIBRATE 145 MG TABLET PO SCH (22:25)
[2017-03-21] MEDS: oxyCODONE/ACETAMINOPHEN 5-325 MG TABLET PO PRN (00:45)
[2017-03-21] MEDS: ALBUTEROL/IPRATROPIUM 3 ML NEB RESP TX SCH ×3 (01:24→13:20)
[2017-03-21] MEDS: OMEGA 3 ACID ETHYL ESTERS 1 GM CAPSULE PO SCH (09:41)
[2017-03-21] MEDS: METOPROLOL SUCCINATE XL 50 MG TABLET PO SCH (09:41)
[2017-03-21] MEDS: CALCIUM (CARBONATE)/VITAMIN D 500 MG-200 UNIT TABLET PO SCH (09:42)
[2017-03-21] MEDS: MUPIROCIN 2% OINT 22 GM TUBE TOP SCH (09:42)
[2017-03-21] MEDS: GLIMEPIRIDE 4 MG TABLET PO SCH (09:42)
[2017-03-21] MEDS: DULoxetine 30 MG CAPSULE PO SCH (09:42)
[2017-03-21] MEDS: CELECOXIB 200 MG CAPSULE PO SCH (09:42)
[2017-03-21] MEDS: INSULIN REGULAR 100 UNIT/ML SUBCUT SCH (09:42)
[2017-03-21] MEDS: PREGABALIN 100 MG CAPSULE PO SCH (09:42)
[2017-03-21] MEDS: MONTELUKAST 10 MG TABLET PO SCH (09:42)
[2017-03-21] MEDS: PANTOPRAZOLE 40 MG TABLET PO SCH (09:42)
[2017-03-21] MEDS: tiZANidine 4 MG TABLET PO SCH (09:43)
[2017-03-21] MEDS ORDERED: LEVOFLOXACIN 500 MG TABLET PO SCH (11:30)
[2017-03-21 13:07] VITALS: BP 136/76
== END 2017-03-21 15:25 | disposition home or self-care (01) | DRG 829 ==
LOC: N.ED 12:48 → N.EDINP 19:46 → N.4E 20:20

== ENCOUNTER 2017-03-27 20:29 | Inpatient (IN) ==
[2017-03-27 21:11] LABS: ABG Base Excess 0.8 MMOL/L (-2.5-2.5); ABG HCO3 25.1 MMOL/L (20-26); ABG Oxygen Saturation 96.9 % (95-100); ABG PCO2 42.5 MM HG (35-48); ABG PH 7.392 (7.35-7.45); ABG TCO2 22.9 MMOL/L (23-27); Allen Test Positive
[2017-03-27 21:53] LABS: Basophils % 0.4 % (0.0-0.8); Eosinophils # 0.2 10*3/uL (0.0-0.87); Eosinophils % 2.1 % (0.00-10.9); Hematocrit 37.8 VOL% (35.7-47.0); Hemoglobin 12.8 GM/DL (12.0-16.0); Immature Granulocytes % 0.3 %; Immature Granulocytes Absolute 0.02 #; Lymphocytes # 2.2 10*3/uL (1.4-4.0); Lymphocytes % 30.2 % (21.3-54.2); Mean Corpuscular HGB Conc 33.9 GM/DL (32-36); Mean Corpuscular Hemoglobin 30 PG (27-34); Mean Corpuscular Volume 88.1 FL (87-102); Mean Platelet Volume 10.7 FL (9.6-12.0); Monocytes # 0.6 10*3/uL (0.11-0.8); Monocytes % 8.3 % (1.7-12.7); Neutrophils # 4.2 10*3/uL (1.4-7.4); Neutrophils % 58.7 % (38.7-73.9); Platelet Count 292 T/CUMM (130-400); Red Blood Count 4.29 MC/CUMM (3.8-5.5); Red Cell Distribution Width 13.1 % (9.3-17.3); White Blood Count 7.2 T/CUMM (4-12)
[2017-03-27 22:13] LABS: Blood Urea Nitrogen 11 MG/DL (7-18); Calcium 8.9 MG/DL (8.5-10.1); Glucose 309 MG/DL (74-106); Magnesium 1.7 MG/DL (1.8-2.4); Osmolality,Calculated 285.7 MOS/KG (273-304); Sodium 138 MMOL/L (136-145)
[2017-03-27 22:15] LABS: Lactic Acid 2.3 MMOL/L (0.4-2.0)
[2017-03-27 22:48] LABS: Total Protein,Body Fluid 4.4 G/DL
[2017-03-27 22:57] LABS: Lymphocytes,Pleural Fluid 97 %; Neutrophils,Pleural Fluid 3 %
[2017-03-27 22:58] LABS: RBC,Pleural Fluid 27083 T/CUMM
[2017-03-27] MEDS ORDERED: fentaNYL 100 MCG/2 ML VIAL IV STA (23:07)
[2017-03-27] MEDS ORDERED: KETOROLAC 30 MG/1 ML VIAL IV STA (23:07)
[2017-03-27] MEDS ORDERED: KETOROLAC 30 MG/1 ML VIAL ONE (23:20)
[2017-03-27] MEDS ORDERED: fentaNYL 100 MCG/2 ML VIAL ONE (23:20)
[2017-03-28] MEDS ORDERED: ACETAMINOPHEN 325 MG TABLET PO PRN (01:30)
[2017-03-28] MEDS ORDERED: ONDANSETRON 4 MG/2 ML VIAL IV PRN (01:30)
[2017-03-28] MEDS ORDERED: ALBUTEROL/IPRATROPIUM 3 ML NEB RESP TX PRN (01:30)
[2017-03-28] MEDS ORDERED: DEXTROSE 50% 25 GM/50 ML VIAL IV PRN (01:30)
[2017-03-28] MEDS ORDERED: GLUCAGON 1 MG VIAL IM PRN (01:30)
[2017-03-28] MEDS: SODIUM CHLORIDE 0.9% 1,000 ML IV SCH ×2 (02:07→15:04)
[2017-03-28] MEDS: INSULIN REGULAR 100 UNIT/ML SUBCUT SCH ×5 (02:25→23:39)
[2017-03-28] MEDS: ALBUTEROL/IPRATROPIUM 3 ML NEB RESP TX SCH ×5 (02:47→19:25)
[2017-03-28] MEDS: MORPHINE 2 MG/1 ML SYRINGE IV PRN ×2 (03:17→16:25)
[2017-03-28] MEDS ORDERED: ceFAZolin 1,000 MG in SYRINGE 1 EACH IV ONE (08:23)
[2017-03-28] MEDS ORDERED: MORPHINE 2 MG/1 ML SYRINGE IV PRN (08:49)
[2017-03-28] MEDS ORDERED: BUPIVACAINE 0.25% 50 ML VIAL ONE (09:26)
[2017-03-28] MEDS ORDERED: LIDOCAINE 2%/EPI 20 ML VIAL ONE (09:27)
[2017-03-28] MEDS ORDERED: HEPARIN 5,000 UNIT/1 ML VIAL ONE (09:34)
[2017-03-28] MEDS ORDERED: PROPOFOL 200 MG/20 ML VIAL IV ONE (10:56)
[2017-03-28] MEDS ORDERED: MIDAZOLAM 2 MG/2 ML VIAL ONE (10:57)
[2017-03-28] MEDS ORDERED: KETAMINE 500 MG/10 ML VIAL ONE (10:57)
[2017-03-28] MEDS ORDERED: fentaNYL 100 MCG/2 ML VIAL ONE (10:57)
[2017-03-28] MEDS: ALLOPURINOL 300 MG TABLET PO SCH (15:05)
[2017-03-28] MEDS: DOCUSATE SODIUM 100 MG CAPSULE PO SCH ×2 (15:05→21:17)
[2017-03-28] MEDS: PANTOPRAZOLE 40 MG TABLET PO SCH (15:06)
[2017-03-28] MEDS: ENOXAPARIN 40 MG/0.4 ML SYRINGE SUBCUT SCH (15:08)
[2017-03-28] MEDS ORDERED: ALPRAZolam 0.5 MG TABLET PO PRN (16:03)
[2017-03-28] MEDS ORDERED: oxyCODONE/ACETAMINOPHEN 5-325 MG TABLET PO PRN (16:03)
[2017-03-28] MEDS: PREGABALIN 75 MG CAPSULE PO SCH (21:15)
[2017-03-28] MEDS: FENOFIBRATE 145 MG TABLET PO SCH (21:15)
[2017-03-28] MEDS: CELECOXIB 200 MG CAPSULE PO SCH (21:15)
[2017-03-28] MEDS: ASPIRIN EC 81 MG TABLET PO SCH (21:15)
[2017-03-28] MEDS: PRAVASTATIN 40 MG TABLET PO SCH (21:16)
[2017-03-29] MEDS: ALBUTEROL/IPRATROPIUM 3 ML NEB RESP TX SCH ×7 (01:15→23:29)
[2017-03-29] MEDS: MORPHINE 2 MG/1 ML SYRINGE IV PRN (05:52)
[2017-03-29] MEDS: INSULIN REGULAR 100 UNIT/ML SUBCUT SCH ×3 (05:52→18:30)
[2017-03-29] MEDS: SODIUM CHLORIDE 0.9% 1,000 ML IV SCH ×2 (07:32→21:09)
[2017-03-29] MEDS ORDERED: BISACODYL 5 MG TABLET PO ONE (08:03)
[2017-03-29] MEDS: PREGABALIN 75 MG CAPSULE PO SCH ×3 (09:02→21:09)
[2017-03-29] MEDS: CELECOXIB 200 MG CAPSULE PO SCH ×2 (09:02→21:09)
[2017-03-29] MEDS: DULoxetine 30 MG CAPSULE PO SCH (09:03)
[2017-03-29] MEDS: MONTELUKAST 10 MG TABLET PO SCH (09:03)
[2017-03-29] MEDS: PANTOPRAZOLE 40 MG TABLET PO SCH (09:04)
[2017-03-29] MEDS: PIOGLITAZONE 15 MG TABLET PO SCH (09:04)
[2017-03-29] MEDS: METOPROLOL SUCCINATE XL 50 MG TABLET PO SCH (09:07)
[2017-03-29] MEDS: buPROPion SR 150 MG TABLET PO SCH (09:07)
[2017-03-29] MEDS: ALLOPURINOL 300 MG TABLET PO SCH (09:07)
[2017-03-29] MEDS: DOCUSATE SODIUM 100 MG CAPSULE PO SCH ×2 (09:08→21:09)
[2017-03-29] MEDS: VALSARTAN 80 MG TABLET PO SCH (09:10)
[2017-03-29] MEDS ORDERED: CARBOplatin 500 MG in SODIUM CHLORIDE 0.9% 250 ML IV ONE (09:14)
[2017-03-29] MEDS ORDERED: DEXAMETHASONE INJ 10 MG in SODIUM CHLORIDE 0.9% 50 ML IV ONE (09:14)
[2017-03-29] MEDS ORDERED: GRANISETRON 1 MG/1 ML VIAL IV SCH ×2 (09:30→14:30)
[2017-03-29] MEDS: ETOPOSIDE 200 MG in SODIUM CHLORIDE 0.9% 500 ML IV SCH (17:11)
[2017-03-29] MEDS: ENOXAPARIN 40 MG/0.4 ML SYRINGE SUBCUT SCH (18:31)
[2017-03-29] MEDS: FENOFIBRATE 145 MG TABLET PO SCH (21:09)
[2017-03-29] MEDS: PRAVASTATIN 40 MG TABLET PO SCH (21:09)
[2017-03-29] MEDS: ASPIRIN EC 81 MG TABLET PO SCH (21:09)
[2017-03-30] MEDS: INSULIN REGULAR 100 UNIT/ML SUBCUT SCH ×4 (00:18→18:39)
[2017-03-30] MEDS: ALBUTEROL/IPRATROPIUM 3 ML NEB RESP TX SCH ×5 (02:54→21:06)
[2017-03-30] MEDS: PREGABALIN 75 MG CAPSULE PO SCH ×3 (09:45→21:23)
[2017-03-30] MEDS: PIOGLITAZONE 15 MG TABLET PO SCH (09:45)
[2017-03-30] MEDS: DULoxetine 30 MG CAPSULE PO SCH (09:46)
[2017-03-30] MEDS: CELECOXIB 200 MG CAPSULE PO SCH ×2 (09:46→21:23)
[2017-03-30] MEDS: PANTOPRAZOLE 40 MG TABLET PO SCH (09:46)
[2017-03-30] MEDS: ALLOPURINOL 300 MG TABLET PO SCH (09:48)
[2017-03-30] MEDS: DOCUSATE SODIUM 100 MG CAPSULE PO SCH ×2 (09:48→21:23)
[2017-03-30] MEDS: buPROPion SR 150 MG TABLET PO SCH (09:48)
[2017-03-30] MEDS: MONTELUKAST 10 MG TABLET PO SCH (09:48)
[2017-03-30] MEDS: METOPROLOL SUCCINATE XL 50 MG TABLET PO SCH (09:48)
[2017-03-30] MEDS: VALSARTAN 80 MG TABLET PO SCH (09:49)
[2017-03-30] MEDS: ENOXAPARIN 40 MG/0.4 ML SYRINGE SUBCUT SCH (09:49)
[2017-03-30] MEDS: ETOPOSIDE 200 MG in SODIUM CHLORIDE 0.9% 500 ML IV SCH (16:30)
[2017-03-30] MEDS: SODIUM CHLORIDE 0.9% 1,000 ML IV SCH (18:40)
[2017-03-30] MEDS: INSULIN GLARGINE 100 UNIT/ML SUBCUT SCH (21:22)
[2017-03-30] MEDS: PRAVASTATIN 40 MG TABLET PO SCH (21:23)
[2017-03-30] MEDS: FENOFIBRATE 145 MG TABLET PO SCH (21:23)
[2017-03-30] MEDS: ASPIRIN EC 81 MG TABLET PO SCH (21:23)
[2017-03-30] MEDS: traZODone 50 MG TABLET PO PRN (21:23)
[2017-03-31] MEDS: INSULIN REGULAR 100 UNIT/ML SUBCUT SCH ×5 (01:13→23:43)
[2017-03-31] MEDS: ALBUTEROL/IPRATROPIUM 3 ML NEB RESP TX SCH ×6 (02:02→19:31)
[2017-03-31 05:31] LABS: Basophils % 0.2 % (0.0-0.8); Eosinophils # 0.1 10*3/uL (0.0-0.87); Eosinophils % 2.1 % (0.00-10.9); Hematocrit 31.2 VOL% (35.7-47.0); Hemoglobin 10.2 GM/DL (12.0-16.0); Immature Granulocytes % 0.3 %; Immature Granulocytes Absolute 0.02 #; Lymphocytes # 1.5 10*3/uL (1.4-4.0); Lymphocytes % 24.3 % (21.3-54.2); Mean Corpuscular HGB Conc 32.7 GM/DL (32-36); Mean Corpuscular Hemoglobin 30 PG (27-34); Mean Platelet Volume 10.4 FL (9.6-12.0); Monocytes # 0.3 10*3/uL (0.11-0.8); Monocytes % 4.3 % (1.7-12.7); Neutrophils # 4.3 10*3/uL (1.4-7.4); Neutrophils % 68.8 % (38.7-73.9); Platelet Count 265 T/CUMM (130-400); Red Blood Count 3.43 MC/CUMM (3.8-5.5); Red Cell Distribution Width 13.1 % (9.3-17.3); White Blood Count 6.2 T/CUMM (4-12)
[2017-03-31 05:59] LABS: Calcium 8.3 MG/DL (8.5-10.1)
[2017-03-31] MEDS: SODIUM CHLORIDE 0.9% 1,000 ML IV SCH ×2 (07:35→10:31)
[2017-03-31] MEDS: ENOXAPARIN 40 MG/0.4 ML SYRINGE SUBCUT SCH (08:41)
[2017-03-31] MEDS: MONTELUKAST 10 MG TABLET PO SCH (08:42)
[2017-03-31] MEDS: PREGABALIN 75 MG CAPSULE PO SCH ×3 (08:42→20:59)
[2017-03-31] MEDS: VALSARTAN 80 MG TABLET PO SCH (08:42)
[2017-03-31] MEDS: buPROPion SR 150 MG TABLET PO SCH (08:42)
[2017-03-31] MEDS: ALLOPURINOL 300 MG TABLET PO SCH (08:43)
[2017-03-31] MEDS: METOPROLOL SUCCINATE XL 50 MG TABLET PO SCH (08:43)
[2017-03-31] MEDS: PIOGLITAZONE 15 MG TABLET PO SCH (08:44)
[2017-03-31] MEDS: CELECOXIB 200 MG CAPSULE PO SCH ×2 (08:44→20:58)
[2017-03-31] MEDS: PANTOPRAZOLE 40 MG TABLET PO SCH (08:44)
[2017-03-31] MEDS: DOCUSATE SODIUM 100 MG CAPSULE PO SCH ×2 (08:44→20:58)
[2017-03-31] MEDS: DULoxetine 30 MG CAPSULE PO SCH (08:44)
[2017-03-31] MEDS ORDERED: SODIUM CHLORIDE 0.45% 1,000 ML IV SCH (13:00)
[2017-03-31] MEDS: ETOPOSIDE 200 MG in SODIUM CHLORIDE 0.9% 500 ML IV SCH (14:53)
[2017-03-31] MEDS: INSULIN GLARGINE 100 UNIT/ML SUBCUT SCH (20:57)
[2017-03-31] MEDS: FENOFIBRATE 145 MG TABLET PO SCH (20:58)
[2017-03-31] MEDS: ASPIRIN EC 81 MG TABLET PO SCH (20:59)
[2017-03-31] MEDS: traZODone 50 MG TABLET PO PRN (20:59)
[2017-03-31] MEDS: PRAVASTATIN 40 MG TABLET PO SCH (20:59)
[2017-04-01] MEDS: ALBUTEROL/IPRATROPIUM 3 ML NEB RESP TX SCH ×4 (00:25→11:15)
[2017-04-01] MEDS: INSULIN REGULAR 100 UNIT/ML SUBCUT SCH (05:56)
[2017-04-01] MEDS: DOCUSATE SODIUM 100 MG CAPSULE PO SCH (10:03)
[2017-04-01] MEDS: CELECOXIB 200 MG CAPSULE PO SCH (10:03)
[2017-04-01] MEDS: PREGABALIN 75 MG CAPSULE PO SCH (10:03)
[2017-04-01] MEDS: DULoxetine 30 MG CAPSULE PO SCH (10:03)
[2017-04-01] MEDS: buPROPion SR 150 MG TABLET PO SCH (10:03)
[2017-04-01] MEDS: VALSARTAN 80 MG TABLET PO SCH (10:03)
[2017-04-01] MEDS: PIOGLITAZONE 15 MG TABLET PO SCH (10:03)
[2017-04-01] MEDS: MONTELUKAST 10 MG TABLET PO SCH (10:03)
[2017-04-01] MEDS: ALLOPURINOL 300 MG TABLET PO SCH (10:03)
[2017-04-01] MEDS: PANTOPRAZOLE 40 MG TABLET PO SCH (10:03)
[2017-04-01] MEDS: ENOXAPARIN 40 MG/0.4 ML SYRINGE SUBCUT SCH (10:04)
[2017-04-01] MEDS: METOPROLOL SUCCINATE XL 50 MG TABLET PO SCH (10:05)
[2017-04-01] MEDS ORDERED: HEPARIN LOCK FLUSH 500 UNIT/5 ML SYRINGE IV ONE (10:52)
[2017-04-01 13:42] VITALS: BP 156/82
== END 2017-04-01 13:00 | disposition home or self-care (01) | DRG 844 ==
LOC: N.ED 20:29 → N.EDINP 23:07 → SUATTDRO 23:07 → N.4E 23:07
PROVIDERS: ADMIT Internal Medicine Geriatric Medicine

== ENCOUNTER 2017-04-06 00:55 | Inpatient (IN) ==
[2017-04-06 02:59] LABS: Basophils % 0.5 % (0.0-0.8); Eosinophils # 0.1 10*3/uL (0.0-0.87); Eosinophils % 2.5 % (0.00-10.9); Hematocrit 29.2 VOL% (35.7-47.0); Hemoglobin 9.6 GM/DL (12.0-16.0); Immature Granulocytes % 0.5 %; Immature Granulocytes Absolute 0.01 #; Lymphocytes # 0.8 10*3/uL (1.4-4.0); Lymphocytes % 36.8 % (21.3-54.2); Mean Corpuscular HGB Conc 32.9 GM/DL (32-36); Mean Corpuscular Hemoglobin 29 PG (27-34); Mean Corpuscular Volume 89.3 FL (87-102); Mean Platelet Volume 10.2 FL (9.6-12.0); Monocytes % 1.5 % (1.7-12.7); Neutrophils # 1.2 10*3/uL (1.4-7.4); Neutrophils % 58.2 % (38.7-73.9); Platelet Count 169 T/CUMM (130-400); Red Blood Count 3.27 MC/CUMM (3.8-5.5); Red Cell Distribution Width 12.1 % (9.3-17.3)
[2017-04-06 03:30] LABS: Alanine Aminotransferase 20 U/L (13-56); Albumin 2.2 G/DL (3.4-5.0); Alkaline Phosphatase 66 U/L (45-117); Aspartate Amino Transferase 22 U/L (0-37); Bilirubin,Total < 0.39 MG/DL (0.2-1.0); Blood Urea Nitrogen 12 MG/DL (7-18); Calcium 7.5 MG/DL (8.5-10.1); Glucose 123 MG/DL (74-106); Osmolality,Calculated 283.1 MOS/KG (273-304); Potassium 3.5 MMOL/L (3.5-5.1); Sodium 142 MMOL/L (136-145); Total Protein 5.6 G/DL (6.4-8.3); Troponin I Only < 0.015 NG/ML (0.00-0.045)
[2017-04-06 03:54] LABS: PT Patient Result 10.6 SECS; Partial Thromboplastin Time 33.6 SECS (0-40)
[2017-04-06 04:01] LABS: Macrocytosis 1+; Platelet Estimate Normal
[2017-04-06] MEDS ORDERED: INFLUENZA VIRUS VACCINE 0.5 ML SYRINGE IM ONE (09:00)
[2017-04-06] MEDS ORDERED: OXYCODONE HCL PO PRN (11:06)
[2017-04-06] MEDS ORDERED: ACETAMINOPHEN PO PRN (11:06)
[2017-04-06] MEDS ORDERED: ALBUTEROL/IPRATROPIUM 3 ML NEB RESP TX PRN ×2 (11:06)
[2017-04-06] MEDS ORDERED: NON-FORMULARY MEDICATION (Epinephrine [Epipen 2-Pak] 0.3 MG) IM PRN (11:06)
[2017-04-06] MEDS ORDERED: ALPRAZolam 0.5 MG TABLET PO PRN (11:06)
[2017-04-06] MEDS ORDERED: [UNRECOGNIZED DRUG - OTHER] PO PRN (11:06)
[2017-04-06] MEDS ORDERED: NITROGLYCERIN SL 0.4 MG TABLET SL PRN (11:06)
[2017-04-06] MEDS: FILGRASTIM-SNDZ 300 MCG/0.5 ML SYRINGE SUBCUT SCH (11:15)
[2017-04-06 11:19] LABS: Basophils % 1.1 % (0.0-0.8); Eosinophils # 0.1 10*3/uL (0.0-0.87); Eosinophils % 3.2 % (0.00-10.9); Hemoglobin 9.2 GM/DL (12.0-16.0); Immature Granulocytes % 1.1 %; Immature Granulocytes Absolute 0.02 #; Lymphocytes # 0.8 10*3/uL (1.4-4.0); Lymphocytes % 39.9 % (21.3-54.2); Mean Corpuscular HGB Conc 32.9 GM/DL (32-36); Mean Corpuscular Hemoglobin 30 PG (27-34); Mean Corpuscular Volume 91.2 FL (87-102); Mean Platelet Volume 9.7 FL (9.6-12.0); Monocytes % 2.1 % (1.7-12.7); Neutrophils % 52.6 % (38.7-73.9); Platelet Count 167 T/CUMM (130-400); Red Blood Count 3.07 MC/CUMM (3.8-5.5); Red Cell Distribution Width 12.2 % (9.3-17.3); White Blood Count 1.9 T/CUMM (4-12)
[2017-04-06 11:51] LABS: Eosinophils 2 % (0-10); Lymphocytes 31 % (20-55); Segmented Neutrophils 65 % (50-85); Total Cells Counted 100
[2017-04-06 11:52] LABS: Hypochromasia 2+; Microcytosis 2+; Platelet Estimate Adequate
[2017-04-06] MEDS ORDERED: MORPHINE 2 MG/1 ML SYRINGE IV ONE (12:49)
[2017-04-06] MEDS ORDERED: MORPHINE 2 MG/1 ML SYRINGE IV PRN (12:49)
[2017-04-06] MEDS: FLUCONAZOLE 100 MG TABLET PO SCH (13:41)
[2017-04-06 13:49] LABS: Total Protein,Body Fluid 4.4 G/DL
[2017-04-06] MEDS: ALBUTEROL 2.5 MG/3 ML NEB RESP TX SCH ×2 (14:08→20:40)
[2017-04-06 14:15] LABS: Eosinophils,Pleural Fluid 1 %; Lymphocytes,Pleural Fluid 86 %; Monocytes,Pleural Fluid 8 %; Neutrophils,Pleural Fluid 5 %
[2017-04-06 14:19] LABS: RBC,Pleural Fluid > 100000 T/CUMM
[2017-04-06] MEDS: PREGABALIN 75 MG CAPSULE PO SCH ×2 (16:06→20:13)
[2017-04-06] MEDS: GLIMEPIRIDE 4 MG TABLET PO SCH (16:55)
[2017-04-06] MEDS: CELECOXIB 200 MG CAPSULE PO SCH (20:13)
[2017-04-06] MEDS: PRAVASTATIN 40 MG TABLET PO SCH (20:13)
[2017-04-06] MEDS: FENOFIBRATE 145 MG TABLET PO SCH (20:13)
[2017-04-06] MEDS: ASPIRIN EC 81 MG TABLET PO SCH (20:13)
[2017-04-06] MEDS: OMEGA 3 ACID ETHYL ESTERS 1 GM CAPSULE PO SCH (20:13)
[2017-04-06] MEDS: INSULIN GLARGINE 100 UNIT/ML SUBCUT SCH (20:15)
[2017-04-07] MEDS: ALBUTEROL 2.5 MG/3 ML NEB RESP TX SCH ×4 (00:46→19:18)
[2017-04-07 05:40] LABS: Basophils % 0.5 % (0.0-0.8); Eosinophils % 2.2 % (0.00-10.9); Hemoglobin 9.2 GM/DL (12.0-16.0); Immature Granulocytes Absolute 0.13 #; Lymphocytes # 0.8 10*3/uL (1.4-4.0); Lymphocytes % 44.1 % (21.3-54.2); Mean Corpuscular HGB Conc 32.9 GM/DL (32-36); Mean Corpuscular Hemoglobin 29 PG (27-34); Mean Corpuscular Volume 89.5 FL (87-102); Mean Platelet Volume 10.4 FL (9.6-12.0); Monocytes # 0.1 10*3/uL (0.11-0.8); Monocytes % 2.7 % (1.7-12.7); Neutrophils # 0.8 10*3/uL (1.4-7.4); Neutrophils % 43.5 % (38.7-73.9); Platelet Count 152 T/CUMM (130-400); Red Blood Count 3.13 MC/CUMM (3.8-5.5); Red Cell Distribution Width 12.3 % (9.3-17.3); White Blood Count 1.9 T/CUMM (4-12)
[2017-04-07 06:25] LABS: Band Neutrophils 2 % (0-10); Eosinophils 2 % (0-10); Lymphocytes 38 % (20-55); Segmented Neutrophils 52 % (50-85); Total Cells Counted 100
[2017-04-07 06:26] LABS: Giant Platelets Few; Hypochromasia 1+; Microcytosis 1+; Ovalocytes Slight; Platelet Estimate Normal
[2017-04-07] MEDS: DULoxetine 30 MG CAPSULE PO SCH (11:31)
[2017-04-07] MEDS: CELECOXIB 200 MG CAPSULE PO SCH ×2 (11:31→22:19)
[2017-04-07] MEDS: METOPROLOL SUCCINATE XL 50 MG TABLET PO SCH (11:32)
[2017-04-07] MEDS: MONTELUKAST 10 MG TABLET PO SCH (11:32)
[2017-04-07] MEDS: GLIMEPIRIDE 4 MG TABLET PO SCH ×2 (11:33→17:43)
[2017-04-07] MEDS: PREGABALIN 75 MG CAPSULE PO SCH ×3 (11:34→22:19)
[2017-04-07] MEDS: ALLOPURINOL 300 MG TABLET PO SCH (11:34)
[2017-04-07] MEDS: buPROPion SR 150 MG TABLET PO SCH (11:34)
[2017-04-07] MEDS: PANTOPRAZOLE 40 MG TABLET PO SCH (11:35)
[2017-04-07] MEDS: CALCIUM (CARBONATE)/VITAMIN D 500 MG-200 UNIT TABLET PO SCH (11:35)
[2017-04-07] MEDS: OMEGA 3 ACID ETHYL ESTERS 1 GM CAPSULE PO SCH ×2 (11:35→22:19)
[2017-04-07] MEDS: FLUCONAZOLE 100 MG TABLET PO SCH (11:35)
[2017-04-07] MEDS: PIOGLITAZONE 30 MG PO SCH (11:36)
[2017-04-07] MEDS: FILGRASTIM-SNDZ 300 MCG/0.5 ML SYRINGE SUBCUT SCH (11:36)
[2017-04-07] MEDS: VALSARTAN 80 MG TABLET PO SCH (11:41)
[2017-04-07] MEDS: MUPIROCIN 2% OINT 22 GM TUBE TOP SCH ×3 (11:49→22:21)
[2017-04-07] MEDS ORDERED: HEPARIN LOCK FLUSH 500 UNIT/5 ML SYRINGE IV ONE (11:53)
[2017-04-07] MEDS ORDERED: DEXTROSE 50% 25 GM/50 ML VIAL IV PRN (15:00)
[2017-04-07] MEDS ORDERED: GLUCAGON 1 MG VIAL IM PRN (15:00)
[2017-04-07] MEDS: FENOFIBRATE 145 MG TABLET PO SCH (18:26)
[2017-04-07] MEDS: ASPIRIN EC 81 MG TABLET PO SCH (18:27)
[2017-04-07] MEDS: INSULIN LISPRO 100 UNIT/ML SUBCUT SCH (18:28)
[2017-04-07] MEDS: PRAVASTATIN 40 MG TABLET PO SCH (22:20)
[2017-04-07] MEDS: INSULIN GLARGINE 100 UNIT/ML SUBCUT SCH (22:20)
[2017-04-08] MEDS: INSULIN LISPRO 100 UNIT/ML SUBCUT SCH ×4 (00:31→18:36)
[2017-04-08] MEDS: ALBUTEROL 2.5 MG/3 ML NEB RESP TX SCH ×4 (00:45→20:21)
[2017-04-08 05:32] LABS: Basophils % 0.7 % (0.0-0.8); Hemoglobin 9.1 GM/DL (12.0-16.0); Immature Granulocytes % 0.7 %; Immature Granulocytes Absolute 0.01 #; Lymphocytes % 70.1 % (21.3-54.2); Mean Corpuscular HGB Conc 33.7 GM/DL (32-36); Mean Corpuscular Hemoglobin 30 PG (27-34); Mean Corpuscular Volume 87.9 FL (87-102); Mean Platelet Volume 10.9 FL (9.6-12.0); Monocytes # 0.1 10*3/uL (0.11-0.8); Monocytes % 3.4 % (1.7-12.7); Neutrophils # 0.3 10*3/uL (1.4-7.4); Neutrophils % 23.1 % (38.7-73.9); Platelet Count 130 T/CUMM (130-400); Red Blood Count 3.07 MC/CUMM (3.8-5.5); Red Cell Distribution Width 12.2 % (9.3-17.3); White Blood Count 1.5 T/CUMM (4-12)
[2017-04-08 06:03] LABS: Band Neutrophils 2 % (0-10); Eosinophils 1 % (0-10); Hypochromasia 1+; Lymphocytes 72 % (20-55); Microcytosis 1+; Segmented Neutrophils 19 % (50-85); Total Cells Counted 100
[2017-04-08 06:04] LABS: Calcium 8.5 MG/DL (8.5-10.1); Osmolality,Calculated 286.7 MOS/KG (273-304); Platelet Estimate Adequate; Potassium 3.7 MMOL/L (3.5-5.1)
[2017-04-08] MEDS: VALSARTAN 80 MG TABLET PO SCH (09:58)
[2017-04-08] MEDS: PIOGLITAZONE 30 MG PO SCH (09:59)
[2017-04-08] MEDS: PREGABALIN 75 MG CAPSULE PO SCH ×3 (09:59→20:31)
[2017-04-08] MEDS: ALLOPURINOL 300 MG TABLET PO SCH (09:59)
[2017-04-08] MEDS: MONTELUKAST 10 MG TABLET PO SCH (10:00)
[2017-04-08] MEDS: PANTOPRAZOLE 40 MG TABLET PO SCH (10:00)
[2017-04-08] MEDS: METOPROLOL SUCCINATE XL 50 MG TABLET PO SCH (10:00)
[2017-04-08] MEDS: buPROPion SR 150 MG TABLET PO SCH (10:00)
[2017-04-08] MEDS: GLIMEPIRIDE 4 MG TABLET PO SCH ×2 (10:01→18:35)
[2017-04-08] MEDS: DULoxetine 30 MG CAPSULE PO SCH (10:02)
[2017-04-08] MEDS: CELECOXIB 200 MG CAPSULE PO SCH ×2 (10:02→20:32)
[2017-04-08] MEDS: CALCIUM (CARBONATE)/VITAMIN D 500 MG-200 UNIT TABLET PO SCH (10:04)
[2017-04-08] MEDS: OMEGA 3 ACID ETHYL ESTERS 1 GM CAPSULE PO SCH ×2 (10:05→20:32)
[2017-04-08] MEDS: FILGRASTIM-SNDZ 300 MCG/0.5 ML SYRINGE SUBCUT SCH (10:05)
[2017-04-08] MEDS: FLUCONAZOLE INJ 200 MG in PREMIX 1 EACH IV SCH (10:11)
[2017-04-08] MEDS: MUPIROCIN 2% OINT 22 GM TUBE TOP SCH ×3 (10:15→20:32)
[2017-04-08] MEDS ORDERED: HEPARIN LOCK FLUSH 500 UNIT/5 ML SYRINGE IV ONE (13:18)
[2017-04-08] MEDS ORDERED: MORPHINE 10 MG/1 ML VIAL IV PRN (14:30)
[2017-04-08] MEDS: FENOFIBRATE 145 MG TABLET PO SCH (18:35)
[2017-04-08] MEDS: ASPIRIN EC 81 MG TABLET PO SCH (18:36)
[2017-04-08] MEDS: PRAVASTATIN 40 MG TABLET PO SCH (20:32)
[2017-04-08] MEDS: INSULIN GLARGINE 100 UNIT/ML SUBCUT SCH (20:32)
[2017-04-09] MEDS: ALBUTEROL 2.5 MG/3 ML NEB RESP TX SCH ×4 (00:50→18:54)
[2017-04-09] MEDS: INSULIN LISPRO 100 UNIT/ML SUBCUT SCH ×4 (01:09→18:47)
[2017-04-09 04:57] LABS: Basophils % 0.8 % (0.0-0.8); Eosinophils % 2.3 % (0.00-10.9); Hematocrit 25.3 VOL% (35.7-47.0); Hemoglobin 8.6 GM/DL (12.0-16.0); Immature Granulocytes % 0.8 %; Immature Granulocytes Absolute 0.01 #; Lymphocytes # 1.1 10*3/uL (1.4-4.0); Lymphocytes % 81.1 % (21.3-54.2); Mean Corpuscular Hemoglobin 30 PG (27-34); Mean Corpuscular Volume 87.2 FL (87-102); Mean Platelet Volume 11.1 FL (9.6-12.0); Monocytes # 0.1 10*3/uL (0.11-0.8); Monocytes % 6.8 % (1.7-12.7); Neutrophils # 0.1 10*3/uL (1.4-7.4); Neutrophils % 8.2 % (38.7-73.9); Platelet Count 112 T/CUMM (130-400); Red Cell Distribution Width 12.1 % (9.3-17.3); White Blood Count 1.3 T/CUMM (4-12)
[2017-04-09 05:22] LABS: Atypical Lymphocytes Few; Eosinophils 4 % (0-10); Lymphocytes 87 % (20-55); Segmented Neutrophils 5 % (50-85); Total Cells Counted 100
[2017-04-09 05:23] LABS: Hypochromasia 1+; Microcytosis 1+; Platelet Estimate Decreased
[2017-04-09] MEDS ORDERED: LACTULOSE 20 GM/30 ML UDCUP PO PRN (09:32)
[2017-04-09] MEDS: FILGRASTIM-SNDZ 300 MCG/0.5 ML SYRINGE SUBCUT SCH (09:59)
[2017-04-09] MEDS: CALCIUM (CARBONATE)/VITAMIN D 500 MG-200 UNIT TABLET PO SCH (10:00)
[2017-04-09] MEDS: ALLOPURINOL 300 MG TABLET PO SCH (10:00)
[2017-04-09] MEDS: OMEGA 3 ACID ETHYL ESTERS 1 GM CAPSULE PO SCH ×2 (10:00→20:44)
[2017-04-09] MEDS: GLIMEPIRIDE 4 MG TABLET PO SCH ×2 (10:00→17:47)
[2017-04-09] MEDS: FLUCONAZOLE INJ 200 MG in PREMIX 1 EACH IV SCH (10:00)
[2017-04-09] MEDS: PREGABALIN 75 MG CAPSULE PO SCH ×3 (10:01→20:43)
[2017-04-09] MEDS: CELECOXIB 200 MG CAPSULE PO SCH ×2 (10:01→20:43)
[2017-04-09] MEDS: METOPROLOL SUCCINATE XL 50 MG TABLET PO SCH (10:01)
[2017-04-09] MEDS: MONTELUKAST 10 MG TABLET PO SCH (10:01)
[2017-04-09] MEDS: DULoxetine 30 MG CAPSULE PO SCH (10:01)
[2017-04-09] MEDS: PANTOPRAZOLE 40 MG TABLET PO SCH (10:01)
[2017-04-09] MEDS: VALSARTAN 80 MG TABLET PO SCH (10:01)
[2017-04-09] MEDS: buPROPion SR 150 MG TABLET PO SCH (10:01)
[2017-04-09] MEDS: MUPIROCIN 2% OINT 22 GM TUBE TOP SCH ×3 (10:02→20:45)
[2017-04-09] MEDS: PIOGLITAZONE 30 MG PO SCH (10:02)
[2017-04-09] MEDS: ASPIRIN EC 81 MG TABLET PO SCH (20:43)
[2017-04-09] MEDS: PRAVASTATIN 40 MG TABLET PO SCH (20:44)
[2017-04-09] MEDS: FENOFIBRATE 145 MG TABLET PO SCH (20:44)
[2017-04-09] MEDS: INSULIN GLARGINE 100 UNIT/ML SUBCUT SCH (20:45)
[2017-04-10] MEDS: ALBUTEROL 2.5 MG/3 ML NEB RESP TX SCH ×4 (00:34→21:15)
[2017-04-10] MEDS: INSULIN LISPRO 100 UNIT/ML SUBCUT SCH ×4 (00:47→18:29)
[2017-04-10 04:57] LABS: Basophils % 0.7 % (0.0-0.8); Eosinophils # 0.1 10*3/uL (0.0-0.87); Eosinophils % 3.6 % (0.00-10.9); Hematocrit 26.9 VOL% (35.7-47.0); Hemoglobin 8.7 GM/DL (12.0-16.0); Lymphocytes % 73.9 % (21.3-54.2); Mean Corpuscular HGB Conc 32.3 GM/DL (32-36); Mean Corpuscular Hemoglobin 29 PG (27-34); Mean Corpuscular Volume 90.6 FL (87-102); Mean Platelet Volume 11.2 FL (9.6-12.0); Monocytes # 0.2 10*3/uL (0.11-0.8); Monocytes % 15.9 % (1.7-12.7); Neutrophils # 0.1 10*3/uL (1.4-7.4); Neutrophils % 5.9 % (38.7-73.9); Platelet Count 125 T/CUMM (130-400); Red Blood Count 2.97 MC/CUMM (3.8-5.5); Red Cell Distribution Width 12.2 % (9.3-17.3); White Blood Count 1.4 T/CUMM (4-12)
[2017-04-10 05:18] LABS: Calcium 8.2 MG/DL (8.5-10.1); Osmolality,Calculated 287.1 MOS/KG (273-304)
[2017-04-10 05:43] LABS: Band Neutrophils 1 % (0-10); Eosinophils 3 % (0-10); Giant Platelets Few; Hypochromasia 1+; Lymphocytes 79 % (20-55); Nucleated Red Blood Cells 1 (0-5); Ovalocytes Slight; Platelet Estimate Normal; Segmented Neutrophils 5 % (50-85); Total Cells Counted 100
[2017-04-10 05:44] LABS: Atypical Lymphocytes Few; Microcytosis Slight
[2017-04-10] MEDS: PREGABALIN 75 MG CAPSULE PO SCH ×3 (08:28→21:17)
[2017-04-10] MEDS: FILGRASTIM-SNDZ 300 MCG/0.5 ML SYRINGE SUBCUT SCH (08:28)
[2017-04-10] MEDS: CALCIUM (CARBONATE)/VITAMIN D 500 MG-200 UNIT TABLET PO SCH (08:28)
[2017-04-10] MEDS: FLUCONAZOLE INJ 200 MG in PREMIX 1 EACH IV SCH (08:28)
[2017-04-10] MEDS: METOPROLOL SUCCINATE XL 50 MG TABLET PO SCH (08:29)
[2017-04-10] MEDS: OMEGA 3 ACID ETHYL ESTERS 1 GM CAPSULE PO SCH ×2 (08:29→21:17)
[2017-04-10] MEDS: GLIMEPIRIDE 4 MG TABLET PO SCH ×2 (08:29→18:28)
[2017-04-10] MEDS: PANTOPRAZOLE 40 MG TABLET PO SCH (08:29)
[2017-04-10] MEDS: CELECOXIB 200 MG CAPSULE PO SCH ×2 (08:29→21:17)
[2017-04-10] MEDS: DULoxetine 30 MG CAPSULE PO SCH (08:29)
[2017-04-10] MEDS: buPROPion SR 150 MG TABLET PO SCH (08:29)
[2017-04-10] MEDS: VALSARTAN 80 MG TABLET PO SCH (08:29)
[2017-04-10] MEDS: ALLOPURINOL 300 MG TABLET PO SCH (08:29)
[2017-04-10] MEDS: PIOGLITAZONE 30 MG PO SCH (08:29)
[2017-04-10] MEDS: MONTELUKAST 10 MG TABLET PO SCH (08:29)
[2017-04-10] MEDS: MUPIROCIN 2% OINT 22 GM TUBE TOP SCH ×3 (09:21→21:23)
[2017-04-10] MEDS: FENOFIBRATE 145 MG TABLET PO SCH (18:28)
[2017-04-10] MEDS: ASPIRIN EC 81 MG TABLET PO SCH (18:30)
[2017-04-10] MEDS: PRAVASTATIN 40 MG TABLET PO SCH (21:17)
[2017-04-10] MEDS: INSULIN GLARGINE 100 UNIT/ML SUBCUT SCH (21:18)
[2017-04-11] MEDS: INSULIN LISPRO 100 UNIT/ML SUBCUT SCH ×4 (00:46→18:02)
[2017-04-11] MEDS ORDERED: SIMETHICONE CHEW 80 MG TABLET PO ONE (01:07)
[2017-04-11 05:01] LABS: Basophils % 1.1 % (0.0-0.8); Eosinophils % 1.5 % (0.00-10.9); Hematocrit 26.8 VOL% (35.7-47.0); Hemoglobin 8.7 GM/DL (12.0-16.0); Immature Granulocytes % 1.5 %; Immature Granulocytes Absolute 0.04 #; Lymphocytes # 1.5 10*3/uL (1.4-4.0); Lymphocytes % 54.2 % (21.3-54.2); Mean Corpuscular HGB Conc 32.5 GM/DL (32-36); Mean Corpuscular Hemoglobin 30 PG (27-34); Mean Corpuscular Volume 90.8 FL (87-102); Mean Platelet Volume 11.3 FL (9.6-12.0); Monocytes # 0.4 10*3/uL (0.11-0.8); Monocytes % 16.1 % (1.7-12.7); NRBC # 0.05 10*3/uL; Neutrophils # 0.7 10*3/uL (1.4-7.4); Neutrophils % 25.6 % (38.7-73.9); Platelet Count 129 T/CUMM (130-400); Red Blood Count 2.95 MC/CUMM (3.8-5.5); Red Cell Distribution Width 12.2 % (9.3-17.3); White Blood Count 2.7 T/CUMM (4-12)
[2017-04-11 05:33] LABS: Calcium 8.9 MG/DL (8.5-10.1); Osmolality,Calculated 282.1 MOS/KG (273-304); Potassium 3.7 MMOL/L (3.5-5.1)
[2017-04-11 06:27] LABS: Atypical Lymphocytes Few; Band Neutrophils 5 % (0-10); Eosinophils 2 % (0-10); Lymphocytes 63 % (20-55); Segmented Neutrophils 11 % (50-85); Total Cells Counted 100
[2017-04-11 06:28] LABS: Polychromasia 1+
[2017-04-11] MEDS: ALBUTEROL 2.5 MG/3 ML NEB RESP TX SCH (07:13)
[2017-04-11] MEDS: GLIMEPIRIDE 4 MG TABLET PO SCH ×2 (10:50→17:19)
[2017-04-11] MEDS: METOPROLOL SUCCINATE XL 50 MG TABLET PO SCH (10:57)
[2017-04-11] MEDS: DULoxetine 30 MG CAPSULE PO SCH (10:57)
[2017-04-11] MEDS: PREGABALIN 75 MG CAPSULE PO SCH ×2 (10:58→16:49)
[2017-04-11] MEDS: ALLOPURINOL 300 MG TABLET PO SCH (10:58)
[2017-04-11] MEDS: VALSARTAN 80 MG TABLET PO SCH (10:58)
[2017-04-11] MEDS: buPROPion SR 150 MG TABLET PO SCH (10:59)
[2017-04-11] MEDS: CALCIUM (CARBONATE)/VITAMIN D 500 MG-200 UNIT TABLET PO SCH (10:59)
[2017-04-11] MEDS: MONTELUKAST 10 MG TABLET PO SCH (10:59)
[2017-04-11] MEDS: CELECOXIB 200 MG CAPSULE PO SCH (10:59)
[2017-04-11] MEDS: PANTOPRAZOLE 40 MG TABLET PO SCH (11:00)
[2017-04-11] MEDS: OMEGA 3 ACID ETHYL ESTERS 1 GM CAPSULE PO SCH (11:00)
[2017-04-11] MEDS: PIOGLITAZONE 30 MG PO SCH (11:02)
[2017-04-11] MEDS: FILGRASTIM-SNDZ 300 MCG/0.5 ML SYRINGE SUBCUT SCH (11:03)
[2017-04-11] MEDS: FLUCONAZOLE INJ 200 MG in PREMIX 1 EACH IV SCH (11:06)
[2017-04-11] MEDS: MUPIROCIN 2% OINT 22 GM TUBE TOP SCH ×2 (11:12→17:21)
[2017-04-11] MEDS ORDERED: HEPARIN LOCK FLUSH 500 UNIT/5 ML SYRINGE IV ONE (11:58)
[2017-04-11 16:26] VITALS: BP 115/56
== END 2017-04-11 18:15 | disposition home health service (06) | DRG 843 ==
LOC: N.EDINP 00:55 → N.ED 00:55 → SUATTDRO 04:23 → N.4E 05:13
PROVIDERS: ADMIT Family Medicine; ATTEND Internal Medicine

== ENCOUNTER 2018-03-17 07:43 | Inpatient (IN) ==
[2018-03-17] MEDS ORDERED: ALUMINUM/MAGNES/SIMETH MAX STR 30 ML UDCUP PO PRN (07:59)
[2018-03-17] MEDS ORDERED: ONDANSETRON 4 MG/2 ML VIAL IV PRN (07:59)
[2018-03-17] MEDS ORDERED: ACETAMINOPHEN 325 MG TABLET PO PRN (07:59)
[2018-03-17] MEDS ORDERED: PROMETHAZINE INJ 25 MG in SODIUM CHLORIDE 0.9% 50 ML IV PRN (07:59)
[2018-03-17] MEDS ORDERED: chlorproMAZINE INJ 50 MG in SODIUM CHLORIDE 0.9% 100 ML IV PRN (07:59)
[2018-03-17] MEDS ORDERED: guaiFENesin 200 MG/10 ML UDCUP PO PRN (07:59)
[2018-03-17] MEDS ORDERED: traMADol 50 MG TABLET PO PRN (07:59)
[2018-03-17] MEDS ORDERED: MAGNESIUM HYDROXIDE SUSP 30 ML UDCUP PO PRN (07:59)
[2018-03-17] MEDS ORDERED: chlorproMAZINE 25 MG TABLET PO PRN (07:59)
[2018-03-17] MEDS ORDERED: LACTULOSE 20 GM/30 ML UDCUP PO PRN (07:59)
[2018-03-17] MEDS ORDERED: diphenhydrAMINE CAP 25 MG CAPSULE PO PRN (07:59)
[2018-03-17] MEDS ORDERED: MYLANTA/LIDO VISC 2:1 300 ML BOTTLE SWISH/SWAL PRN (07:59)
[2018-03-17] MEDS ORDERED: TEMAZEPAM 7.5 MG CAPSULE PO PRN (07:59)
[2018-03-17] MEDS ORDERED: LOPERAMIDE 2 MG CAPSULE PO PRN ×2 (07:59)
[2018-03-17] MEDS ORDERED: chlorproMAZINE INJ 25 MG in SODIUM CHLORIDE 0.9% 100 ML IV PRN (07:59)
[2018-03-17] MEDS ORDERED: BENZTROPINE 2 MG/2 ML AMP IV PRN (07:59)
[2018-03-17] MEDS ORDERED: MYLANTA/LIDO VISC 2:1 300 ML BOTTLE SWISH/SPIT PRN (07:59)
[2018-03-17 08:54] LABS: Basophils % 0.2 % (0.0-0.8); Hematocrit 32.8 VOL% (35.7-47.0); Hemoglobin 10.4 GM/DL (12.0-16.0); Immature Granulocytes % 0.4 %; Immature Granulocytes Absolute 0.02 #; Lymphocytes # 0.6 10*3/uL (1.4-4.0); Lymphocytes % 10.8 % (21.3-54.2); Mean Corpuscular HGB Conc 31.7 GM/DL (32-36); Mean Corpuscular Hemoglobin 30 PG (27-34); Mean Corpuscular Volume 94.5 FL (87-102); Mean Platelet Volume 11.7 FL (9.6-12.0); Monocytes # 0.1 10*3/uL (0.11-0.8); Monocytes % 1.6 % (1.7-12.7); Neutrophils # 4.9 10*3/uL (1.4-7.4); Platelet Count 186 T/CUMM (130-400); Red Blood Count 3.47 MC/CUMM (3.8-5.5); Red Cell Distribution Width 13.5 % (9.3-17.3); White Blood Count 5.7 T/CUMM (4-12)
[2018-03-17 09:28] LABS: Albumin 3.1 G/DL (3.4-5.0); Bilirubin,Total 0.4 MG/DL (0.2-1.0); Calcium 8.9 MG/DL (8.5-10.1); Osmolality,Calculated 293.5 MOS/KG (273-304); Potassium 4.9 MMOL/L (3.5-5.1); Total Protein 6.9 G/DL (6.4-8.3); Uric Acid 6.1 MG/DL (2.6-6.0)
[2018-03-17] MEDS: oxyCODONE/ACETAMINOPHEN 5-325 MG TABLET PO PRN (18:40)
[2018-03-17] MEDS ORDERED: DEXAMETHASONE 6 MG TABLET PO SCH (21:00)
[2018-03-17] MEDS: SIMVASTATIN 20 MG TABLET PO SCH (21:48)
[2018-03-17] MEDS: tiZANidine 4 MG TABLET PO SCH (21:48)
[2018-03-17] MEDS: CELECOXIB 200 MG CAPSULE PO SCH (21:48)
[2018-03-17] MEDS: FENOFIBRATE 145 MG TABLET PO SCH (21:48)
[2018-03-17] MEDS: PANTOPRAZOLE 40 MG TABLET PO SCH (21:48)
[2018-03-17] MEDS ORDERED: GLUCAGON 1 MG VIAL IM PRN (22:13)
[2018-03-17] MEDS ORDERED: DEXTROSE 50% 25 GM/50 ML SYRINGE IV PRN (22:13)
[2018-03-17] MEDS: INSULIN GLARGINE 100 UNIT/ML SUBCUT SCH (22:42)
[2018-03-17] MEDS: INSULIN REGULAR 100 UNIT/ML SUBCUT SCH (22:44)
[2018-03-18] MEDS: ALPRAZolam 0.25 MG TABLET PO PRN ×2 (01:41→22:01)
[2018-03-18] MEDS: oxyCODONE/ACETAMINOPHEN 5-325 MG TABLET PO PRN ×2 (01:41→17:03)
[2018-03-18 03:16] LABS: Apearance,Urine CLEAR (Clear); Bacteria,Urine Occasional /HPF (Few); Bilirubin,Urine Negative (Negative); Blood, Urine Negative (Negative); Glucose,Urine (UA) >=500 mg/dL (Negative); Hyaline Casts,Urine 1 /LPF (0-3); Ketones,Urine Negative (Negative); Nitrite,Urine Negative (Negative); Protein,Urine Negative; RBC,Urine 1 /HPF (0-4); Squamous Epithelial Cell,Urine Occasional /HPF (0-10); Urine Color Straw (Yellow); Urine Specific Gravity 1.026 (1.001-1.035); Urine Urobilinogen < 2.0 EU/DL (0.2-1.0); WBC,Urine 1 /HPF (0-6)
[2018-03-18 06:19] LABS: Basophils % 0.1 % (0.0-0.8); Hematocrit 30.8 VOL% (35.7-47.0); Hemoglobin 10.1 GM/DL (12.0-16.0); Immature Granulocytes Absolute 0.08 #; Lymphocytes # 0.6 10*3/uL (1.4-4.0); Lymphocytes % 7.6 % (21.3-54.2); Mean Corpuscular HGB Conc 32.8 GM/DL (32-36); Mean Corpuscular Hemoglobin 30 PG (27-34); Mean Corpuscular Volume 92.5 FL (87-102); Mean Platelet Volume 11.8 FL (9.6-12.0); Monocytes # 0.4 10*3/uL (0.11-0.8); Monocytes % 4.6 % (1.7-12.7); Neutrophils % 86.7 % (38.7-73.9); Platelet Count 164 T/CUMM (130-400); Red Blood Count 3.33 MC/CUMM (3.8-5.5); Red Cell Distribution Width 13.6 % (9.3-17.3); White Blood Count 8.1 T/CUMM (4-12)
[2018-03-18 06:45] LABS: Albumin 3.1 G/DL (3.4-5.0); Bilirubin,Total 0.4 MG/DL (0.2-1.0); Calcium 8.9 MG/DL (8.5-10.1); Osmolality,Calculated 300.5 MOS/KG (273-304); Potassium 4.5 MMOL/L (3.5-5.1); Total Protein 6.5 G/DL (6.4-8.3)
[2018-03-18] MEDS ORDERED: INSULIN REGULAR 100 UNIT/ML SUBCUT SCH (07:30)
[2018-03-18] MEDS: INSULIN REGULAR 100 UNIT/ML SUBCUT SCH ×4 (08:42→20:33)
[2018-03-18 10:54] LABS: PT Patient Result 10.4 SECS
[2018-03-18] MEDS: tiZANidine 4 MG TABLET PO SCH ×2 (12:30→20:30)
[2018-03-18] MEDS: FENOFIBRATE 145 MG TABLET PO SCH (12:30)
[2018-03-18] MEDS: PANTOPRAZOLE 40 MG TABLET PO SCH (12:30)
[2018-03-18] MEDS: CELECOXIB 200 MG CAPSULE PO SCH ×2 (12:30→20:30)
[2018-03-18] MEDS: METOPROLOL TARTRATE 50 MG TABLET PO SCH (14:11)
[2018-03-18] MEDS: SIMVASTATIN 20 MG TABLET PO SCH (20:30)
[2018-03-18] MEDS: PREGABALIN 100 MG CAPSULE PO SCH (20:31)
[2018-03-18] MEDS: INSULIN GLARGINE 100 UNIT/ML SUBCUT SCH (20:34)
[2018-03-18] MEDS: ALBUTEROL/IPRATROPIUM 3 ML NEB RESP TX SCH (21:45)
[2018-03-19] MEDS ORDERED: ALBUTEROL/IPRATROPIUM 3 ML NEB RESP TX PRN (01:37)
[2018-03-19] MEDS: ALBUTEROL/IPRATROPIUM 3 ML NEB RESP TX SCH ×4 (01:59→19:19)
[2018-03-19] MEDS: ALPRAZolam 0.25 MG TABLET PO PRN ×3 (02:04→22:12)
[2018-03-19 06:22] LABS: Apearance,Urine Slightly Hazy (Clear); Bacteria,Urine Occasional /HPF (Few); Bilirubin,Urine Negative (Negative); Blood, Urine Negative (Negative); Glucose,Urine (UA) 150 mg/dL (Negative); Ketones,Urine Negative (Negative); Mucus,Urine Occasional /LPF (Occasional); Nitrite,Urine Negative (Negative); Protein,Urine Negative; RBC,Urine 5 /HPF (0-4); Squamous Epithelial Cell,Urine Occasional /HPF (0-10); Urine Color Yellow (Yellow); Urine Specific Gravity 1.023 (1.001-1.035); Urine Urobilinogen < 2.0 EU/DL (0.2-1.0); WBC,Urine 8 /HPF (0-6)
[2018-03-19] MEDS: oxyCODONE/ACETAMINOPHEN 5-325 MG TABLET PO PRN ×2 (06:50→22:12)
[2018-03-19] MEDS: INSULIN REGULAR 100 UNIT/ML SUBCUT SCH ×4 (09:25→21:49)
[2018-03-19] MEDS: PREGABALIN 100 MG CAPSULE PO SCH ×2 (09:25→21:49)
[2018-03-19] MEDS: METOPROLOL TARTRATE 50 MG TABLET PO SCH (09:26)
[2018-03-19] MEDS: PANTOPRAZOLE 40 MG TABLET PO SCH (09:26)
[2018-03-19] MEDS: CELECOXIB 200 MG CAPSULE PO SCH ×2 (09:26→21:48)
[2018-03-19] MEDS: tiZANidine 4 MG TABLET PO SCH ×2 (09:26→21:49)
[2018-03-19] MEDS: FENOFIBRATE 145 MG TABLET PO SCH (09:26)
[2018-03-19] MEDS ORDERED: FUROSEMIDE 40 MG/4 ML VIAL IV ONE (15:41)
[2018-03-19] MEDS ORDERED: DEXAMETHASONE 10 MG/1 ML VIAL IV ONE (15:42)
[2018-03-19] MEDS ORDERED: DEXAMETHASONE INJ 20 MG in SODIUM CHLORIDE 0.9% 50 ML IV ONE (16:00)
[2018-03-19] MEDS: DEXAMETHASONE INJ 20 MG in SODIUM CHLORIDE 0.9% 50 ML IV SCH (17:09)
[2018-03-19] MEDS ORDERED: diphenhydrAMINE 50 MG/1 ML VIAL IV ONE (17:30)
[2018-03-19] MEDS ORDERED: GRANISETRON 1 MG/1 ML VIAL IV ONE (17:30)
[2018-03-19] MEDS ORDERED: ETOPOSIDE 200 MG in SODIUM CHLORIDE 0.9% 500 ML IV ONE (18:00)
[2018-03-19] MEDS ORDERED: ALBUTEROL/IPRATROPIUM 3 ML NEB RESP TX SCH (21:29)
[2018-03-19] MEDS: SIMVASTATIN 20 MG TABLET PO SCH (21:49)
[2018-03-19] MEDS: INSULIN GLARGINE 100 UNIT/ML SUBCUT SCH (21:49)
[2018-03-20] MEDS: ALBUTEROL/IPRATROPIUM 3 ML NEB RESP TX SCH ×4 (01:11→19:03)
[2018-03-20] MEDS: DEXAMETHASONE INJ 20 MG in SODIUM CHLORIDE 0.9% 50 ML IV SCH ×2 (04:42→17:54)
[2018-03-20] MEDS: METOPROLOL TARTRATE 50 MG TABLET PO SCH (08:45)
[2018-03-20] MEDS: CELECOXIB 200 MG CAPSULE PO SCH ×2 (08:45→21:44)
[2018-03-20] MEDS: tiZANidine 4 MG TABLET PO SCH ×2 (08:45→21:44)
[2018-03-20] MEDS: PREGABALIN 100 MG CAPSULE PO SCH ×2 (08:46→21:44)
[2018-03-20] MEDS: PANTOPRAZOLE 40 MG TABLET PO SCH (08:46)
[2018-03-20] MEDS: INSULIN REGULAR 100 UNIT/ML SUBCUT SCH ×4 (08:47→21:45)
[2018-03-20] MEDS: FENOFIBRATE 145 MG TABLET PO SCH (08:50)
[2018-03-20 10:57] LABS: Hematocrit 30.4 VOL% (35.7-47.0); Hemoglobin 9.7 GM/DL (12.0-16.0); Immature Granulocytes % 0.4 %; Immature Granulocytes Absolute 0.02 #; Lymphocytes # 0.2 10*3/uL (1.4-4.0); Lymphocytes % 4.5 % (21.3-54.2); Mean Corpuscular HGB Conc 31.9 GM/DL (32-36); Mean Corpuscular Hemoglobin 30 PG (27-34); Mean Corpuscular Volume 92.4 FL (87-102); Mean Platelet Volume 11.6 FL (9.6-12.0); Monocytes # 0.1 10*3/uL (0.11-0.8); Monocytes % 2.3 % (1.7-12.7); Neutrophils # 4.4 10*3/uL (1.4-7.4); Neutrophils % 92.8 % (38.7-73.9); Platelet Count 160 T/CUMM (130-400); Red Blood Count 3.29 MC/CUMM (3.8-5.5); Red Cell Distribution Width 13.4 % (9.3-17.3); White Blood Count 4.7 T/CUMM (4-12)
[2018-03-20 11:27] LABS: Albumin 2.5 G/DL (3.4-5.0); Band Neutrophils 2 % (0-10); Bilirubin,Total 0.5 MG/DL (0.2-1.0); Calcium 9.1 MG/DL (8.5-10.1); Lymphocytes 3 % (20-55); Osmolality,Calculated 299.8 MOS/KG (273-304); Potassium 4.3 MMOL/L (3.5-5.1); Segmented Neutrophils 90 % (50-85); Total Cells Counted 100
[2018-03-20 11:28] LABS: Hypochromasia 1+
[2018-03-20] MEDS ORDERED: ATEZOLIZUMAB 1,200 MG in SODIUM CHLORIDE 0.9% 250 ML IV ONE (12:00)
[2018-03-20] MEDS ORDERED: CARBOplatin 500 MG in SODIUM CHLORIDE 0.9% 250 ML IV ONE (12:30)
[2018-03-20] MEDS: ETOPOSIDE 200 MG in SODIUM CHLORIDE 0.9% 500 ML IV SCH (13:31)
[2018-03-20] MEDS: oxyCODONE/ACETAMINOPHEN 5-325 MG TABLET PO PRN (16:13)
[2018-03-20] MEDS: SIMVASTATIN 20 MG TABLET PO SCH (21:44)
[2018-03-20] MEDS: INSULIN GLARGINE 100 UNIT/ML SUBCUT SCH (21:45)
[2018-03-21] MEDS: ALBUTEROL/IPRATROPIUM 3 ML NEB RESP TX SCH ×4 (00:29→19:36)
[2018-03-21] MEDS: ALPRAZolam 0.25 MG TABLET PO PRN ×3 (01:17→16:30)
[2018-03-21] MEDS: INSULIN REGULAR 100 UNIT/ML SUBCUT SCH ×5 (01:18→21:37)
[2018-03-21] MEDS: oxyCODONE/ACETAMINOPHEN 5-325 MG TABLET PO PRN ×3 (01:21→16:29)
[2018-03-21 05:17] LABS: Hematocrit 30.9 VOL% (35.7-47.0); Hemoglobin 9.9 GM/DL (12.0-16.0); Immature Granulocytes % 0.7 %; Immature Granulocytes Absolute 0.04 #; Lymphocytes # 0.3 10*3/uL (1.4-4.0); Lymphocytes % 4.9 % (21.3-54.2); Mean Corpuscular Hemoglobin 30 PG (27-34); Mean Corpuscular Volume 93.4 FL (87-102); Mean Platelet Volume 11.4 FL (9.6-12.0); Monocytes # 0.1 10*3/uL (0.11-0.8); Monocytes % 1.5 % (1.7-12.7); Neutrophils # 5.5 10*3/uL (1.4-7.4); Neutrophils % 92.9 % (38.7-73.9); Platelet Count 174 T/CUMM (130-400); Red Blood Count 3.31 MC/CUMM (3.8-5.5); Red Cell Distribution Width 13.4 % (9.3-17.3); White Blood Count 5.9 T/CUMM (4-12)
[2018-03-21 05:32] LABS: Albumin 2.7 G/DL (3.4-5.0); Bilirubin,Total 0.7 MG/DL (0.2-1.0); Calcium 9.5 MG/DL (8.5-10.1); Osmolality,Calculated 294.5 MOS/KG (273-304); Potassium 4.2 MMOL/L (3.5-5.1); Total Protein 7.1 G/DL (6.4-8.3)
[2018-03-21] MEDS: DEXAMETHASONE INJ 20 MG in SODIUM CHLORIDE 0.9% 50 ML IV SCH ×2 (05:59→17:12)
[2018-03-21 06:41] LABS: Band Neutrophils 10 % (0-10); Lymphocytes 3 % (20-55); Platelet Estimate Normal; Segmented Neutrophils 87 % (50-85); Total Cells Counted 100
[2018-03-21 06:42] LABS: Anisocytosis Slight; Hypochromasia 1+
[2018-03-21] MEDS: tiZANidine 4 MG TABLET PO SCH ×2 (08:36→21:36)
[2018-03-21] MEDS: METOPROLOL TARTRATE 50 MG TABLET PO SCH (08:36)
[2018-03-21] MEDS: CELECOXIB 200 MG CAPSULE PO SCH ×2 (08:36→21:36)
[2018-03-21] MEDS: PREGABALIN 100 MG CAPSULE PO SCH ×2 (08:36→21:36)
[2018-03-21] MEDS: PANTOPRAZOLE 40 MG TABLET PO SCH (08:37)
[2018-03-21] MEDS: FENOFIBRATE 145 MG TABLET PO SCH (09:02)
[2018-03-21] MEDS: ETOPOSIDE 200 MG in SODIUM CHLORIDE 0.9% 500 ML IV SCH (11:01)
[2018-03-21] MEDS ORDERED: fentaNYL 12 MCG/HR PATCH TRANSDERM SCH (16:30)
[2018-03-21] MEDS: INSULIN GLARGINE 100 UNIT/ML SUBCUT SCH (21:36)
[2018-03-21] MEDS: SIMVASTATIN 20 MG TABLET PO SCH (21:36)
[2018-03-22] MEDS: ALBUTEROL/IPRATROPIUM 3 ML NEB RESP TX SCH ×4 (00:30→19:58)
[2018-03-22] MEDS: oxyCODONE/ACETAMINOPHEN 5-325 MG TABLET PO PRN ×3 (04:23→18:45)
[2018-03-22] MEDS: ALPRAZolam 0.25 MG TABLET PO PRN ×4 (04:23→23:19)
[2018-03-22 05:19] LABS: Hematocrit 31.8 VOL% (35.7-47.0); Immature Granulocytes % 0.2 %; Immature Granulocytes Absolute 0.01 #; Lymphocytes # 0.3 10*3/uL (1.4-4.0); Lymphocytes % 4.8 % (21.3-54.2); Mean Corpuscular HGB Conc 31.4 GM/DL (32-36); Mean Corpuscular Hemoglobin 30 PG (27-34); Mean Corpuscular Volume 94.1 FL (87-102); Mean Platelet Volume 11.5 FL (9.6-12.0); Monocytes % 0.5 % (1.7-12.7); Neutrophils # 5.3 10*3/uL (1.4-7.4); Neutrophils % 94.5 % (38.7-73.9); Platelet Count 175 T/CUMM (130-400); Red Blood Count 3.38 MC/CUMM (3.8-5.5); Red Cell Distribution Width 13.3 % (9.3-17.3); White Blood Count 5.6 T/CUMM (4-12)
[2018-03-22 05:48] LABS: Albumin 2.7 G/DL (3.4-5.0); Bilirubin,Total 0.7 MG/DL (0.2-1.0); Calcium 8.9 MG/DL (8.5-10.1); Osmolality,Calculated 295.4 MOS/KG (273-304); Potassium 4.3 MMOL/L (3.5-5.1); Total Protein 6.9 G/DL (6.4-8.3)
[2018-03-22] MEDS: DEXAMETHASONE INJ 20 MG in SODIUM CHLORIDE 0.9% 50 ML IV SCH ×2 (06:22→17:54)
[2018-03-22 07:09] LABS: Band Neutrophils 5 % (0-10); Lymphocytes 1 % (20-55); Segmented Neutrophils 93 % (50-85); Total Cells Counted 100
[2018-03-22 07:10] LABS: Anisocytosis Slight; Macrocytosis Slight; Platelet Estimate Adequate
[2018-03-22] MEDS: PREGABALIN 100 MG CAPSULE PO SCH ×2 (09:22→21:35)
[2018-03-22] MEDS: tiZANidine 4 MG TABLET PO SCH ×2 (09:22→21:36)
[2018-03-22] MEDS: METOPROLOL TARTRATE 50 MG TABLET PO SCH (09:22)
[2018-03-22] MEDS: PANTOPRAZOLE 40 MG TABLET PO SCH (09:22)
[2018-03-22] MEDS: CELECOXIB 200 MG CAPSULE PO SCH ×2 (09:22→21:35)
[2018-03-22] MEDS: INSULIN REGULAR 100 UNIT/ML SUBCUT SCH ×4 (09:23→21:39)
[2018-03-22] MEDS: FENOFIBRATE 145 MG TABLET PO SCH (11:24)
[2018-03-22] MEDS: SUCRALFATE 1 GM/10 ML UDCUP PO SCH ×2 (16:35→21:36)
[2018-03-22] MEDS ORDERED: FLUCONAZOLE 100 MG TABLET PO SCH (21:00)
[2018-03-22] MEDS: SIMVASTATIN 20 MG TABLET PO SCH (21:36)
[2018-03-22] MEDS: INSULIN GLARGINE 100 UNIT/ML SUBCUT SCH (21:39)
[2018-03-23] MEDS: ALBUTEROL/IPRATROPIUM 3 ML NEB RESP TX SCH ×2 (00:48→08:12)
[2018-03-23] MEDS: ALPRAZolam 0.25 MG TABLET PO PRN (04:19)
[2018-03-23] MEDS: oxyCODONE/ACETAMINOPHEN 5-325 MG TABLET PO PRN ×2 (04:19→10:22)
[2018-03-23] MEDS: DEXAMETHASONE INJ 20 MG in SODIUM CHLORIDE 0.9% 50 ML IV SCH (04:31)
[2018-03-23 04:54] LABS: Hemoglobin 10.9 GM/DL (12.0-16.0); Immature Granulocytes % 0.6 %; Immature Granulocytes Absolute 0.03 #; Lymphocytes # 0.4 10*3/uL (1.4-4.0); Lymphocytes % 7.9 % (21.3-54.2); Mean Corpuscular HGB Conc 32.1 GM/DL (32-36); Mean Corpuscular Hemoglobin 30 PG (27-34); Mean Corpuscular Volume 92.4 FL (87-102); Mean Platelet Volume 11.6 FL (9.6-12.0); Monocytes % 0.2 % (1.7-12.7); Neutrophils # 4.8 10*3/uL (1.4-7.4); Neutrophils % 91.3 % (38.7-73.9); Platelet Count 209 T/CUMM (130-400); Red Blood Count 3.68 MC/CUMM (3.8-5.5); White Blood Count 5.3 T/CUMM (4-12)
[2018-03-23 05:17] LABS: Bilirubin,Total 0.8 MG/DL (0.2-1.0); Potassium 4.7 MMOL/L (3.5-5.1); Total Protein 7.2 G/DL (6.4-8.3)
[2018-03-23 06:35] LABS: Lymphocytes 6 % (20-55); Platelet Estimate Adequate; Segmented Neutrophils 94 % (50-85); Total Cells Counted 100
[2018-03-23] MEDS: SUCRALFATE 1 GM/10 ML UDCUP PO SCH ×2 (08:47→12:32)
[2018-03-23] MEDS: CELECOXIB 200 MG CAPSULE PO SCH (08:47)
[2018-03-23] MEDS: PREGABALIN 100 MG CAPSULE PO SCH (08:47)
[2018-03-23] MEDS: tiZANidine 4 MG TABLET PO SCH (08:47)
[2018-03-23] MEDS: METOPROLOL TARTRATE 50 MG TABLET PO SCH (08:47)
[2018-03-23] MEDS: FENOFIBRATE 145 MG TABLET PO SCH (08:48)
[2018-03-23] MEDS: PANTOPRAZOLE 40 MG TABLET PO SCH (08:48)
[2018-03-23] MEDS: INSULIN REGULAR 100 UNIT/ML SUBCUT SCH ×2 (08:48→12:32)
[2018-03-23 12:33] VITALS: BP 115/61
== END 2018-03-23 13:55 | disposition home or self-care (01) | DRG 180 ==
LOC: N.4E 07:43
PROVIDERS: ADMIT Specialist; ATTEND Specialist

== ENCOUNTER 2018-03-30 14:50 | Inpatient (IN) ==
[2018-03-30] MEDS ORDERED: MEROPENEM 1,000 MG in SODIUM CHLORIDE 0.9% 100 ML IV STA (15:42)
[2018-03-30] MEDS ORDERED: SODIUM CHLORIDE 0.9% 1,000 ML IV STA ×2 (15:47→16:39)
[2018-03-30 15:50] LABS: Hematocrit 33.6 VOL% (35.7-47.0); Hemoglobin 11.1 GM/DL (12.0-16.0); Immature Granulocytes % 2.8 %; Immature Granulocytes Absolute 0.01 #; Lymphocytes # 0.3 10*3/uL (1.4-4.0); Lymphocytes % 86.1 % (21.3-54.2); Mean Corpuscular Hemoglobin 29 PG (27-34); Mean Corpuscular Volume 88.4 FL (87-102); Mean Platelet Volume 11.6 FL (9.6-12.0); Monocytes % 8.3 % (1.7-12.7); NRBC # 0.03 10*3/uL; Neutrophils % 2.8 % (38.7-73.9); Red Cell Distribution Width 12.5 % (9.3-17.3)
[2018-03-30] MEDS ORDERED: ONDANSETRON 4 MG/2 ML VIAL IV STA (16:02)
[2018-03-30] MEDS ORDERED: ONDANSETRON 4 MG/2 ML VIAL ONE (16:02)
[2018-03-30 16:05] LABS: Alanine Aminotransferase 18 U/L (13-56); Albumin 2.6 G/DL (3.4-5.0); Alkaline Phosphatase 90 U/L (45-117); Aspartate Amino Transferase 12 U/L (0-37); Blood Urea Nitrogen 22 MG/DL (7-18); Calcium 9.1 MG/DL (8.5-10.1); Glucose 204 MG/DL (74-106); Osmolality,Calculated 276.2 MOS/KG (273-304); Potassium 4.1 MMOL/L (3.5-5.1); Sodium 134 MMOL/L (136-145); Total Protein 6.9 G/DL (6.4-8.3)
[2018-03-30 16:06] LABS: Lactic Acid 3.6 MMOL/L (0.4-2.0)
[2018-03-30 16:34] LABS: White Blood Count 0.4 T/CUMM (4-12)
[2018-03-30 16:35] LABS: Platelet Count 32 T/CUMM (130-400)
[2018-03-30 16:48] LABS: Lymphocytes 88 % (20-55); Platelet Estimate Decreased; Segmented Neutrophils 3 % (50-85); Total Cells Counted 101
[2018-03-30] MEDS: VANCOMYCIN INJ 1,500 MG in SODIUM CHLORIDE 0.9% 500 ML IV SCH (16:48)
[2018-03-30 16:51] LABS: Anisocytosis Slight; Hypochromasia Slight; Poikilocytosis Slight
[2018-03-30 16:52] LABS: Atypical Lymphocytes Few
[2018-03-30 17:01] LABS: Apearance,Urine CLEAR (Clear); Bacteria,Urine Occasional /HPF (Few); Bilirubin,Urine Negative (Negative); Blood, Urine Negative (Negative); Glucose,Urine (UA) >=500 mg/dL (Negative); Ketones,Urine Negative (Negative); Nitrite,Urine Negative (Negative); Protein,Urine Negative; RBC,Urine <1 /HPF (0-4); Urine Color Yellow (Yellow); Urine Specific Gravity 1.013 (1.001-1.035); WBC,Urine <1 /HPF (0-6)
[2018-03-30] MEDS ORDERED: ONDANSETRON 4 MG/2 ML VIAL IV PRN (19:21)
[2018-03-30] MEDS ORDERED: PROCHLORPERAZINE 10 MG TABLET PO PRN (19:21)
[2018-03-30] MEDS ORDERED: NITROGLYCERIN SL 0.4 MG TABLET SL PRN (19:21)
[2018-03-30] MEDS ORDERED: GLUCAGON 1 MG VIAL IM PRN (19:21)
[2018-03-30] MEDS ORDERED: DEXTROSE 50% 25 GM/50 ML SYRINGE IV PRN (19:21)
[2018-03-30] MEDS: LEVOFLOXACIN INJ 750 MG in PREMIX 1 EACH IV SCH (20:18)
[2018-03-30] MEDS: SODIUM CHLORIDE 0.9% 1,000 ML IV SCH (20:30)
[2018-03-30] MEDS: methylPREDNISolone SOD SUC 40 MG/1 ML VIAL IV SCH (20:30)
[2018-03-30] MEDS: ASPIRIN EC 81 MG TABLET PO SCH (20:30)
[2018-03-30] MEDS: INSULIN GLARGINE 100 UNIT/ML SUBCUT SCH (20:31)
[2018-03-30] MEDS: PREGABALIN 100 MG CAPSULE PO SCH (20:31)
[2018-03-30] MEDS: INSULIN LISPRO 100 UNIT/ML SUBCUT SCH (20:31)
[2018-03-30] MEDS: ALBUTEROL/IPRATROPIUM 3 ML NEB RESP TX PRN (21:01)
[2018-03-30] MEDS ORDERED: SODIUM CHLORIDE 0.9% 500 ML IV ONE (21:53)
[2018-03-30] MEDS: ALPRAZolam 0.5 MG TABLET PO PRN (22:00)
[2018-03-30] MEDS: NOREPINEPHRINE 8 MG in SODIUM CHLORIDE 0.9% 242 ML IV PRN (22:37)
[2018-03-31] MEDS: methylPREDNISolone SOD SUC 40 MG/1 ML VIAL IV SCH ×4 (02:28→21:03)
[2018-03-31] MEDS: MEROPENEM 1,000 MG in SODIUM CHLORIDE 0.9% 100 ML IV SCH ×2 (04:57→16:31)
[2018-03-31] MEDS: VANCOMYCIN INJ 1,500 MG in SODIUM CHLORIDE 0.9% 500 ML IV SCH ×2 (04:57→17:31)
[2018-03-31 05:10] LABS: Hematocrit 30.8 VOL% (35.7-47.0); Lymphocytes # 0.2 10*3/uL (1.4-4.0); Lymphocytes % 66.7 % (21.3-54.2); Mean Corpuscular HGB Conc 32.5 GM/DL (32-36); Mean Corpuscular Hemoglobin 29 PG (27-34); Mean Corpuscular Volume 90.3 FL (87-102); Mean Platelet Volume 11.6 FL (9.6-12.0); Monocytes % 12.5 % (1.7-12.7); Neutrophils # 0.1 10*3/uL (1.4-7.4); Neutrophils % 20.8 % (38.7-73.9); Red Blood Count 3.41 MC/CUMM (3.8-5.5); Red Cell Distribution Width 12.6 % (9.3-17.3)
[2018-03-31 05:28] LABS: Calcium 8.3 MG/DL (8.5-10.1); Osmolality,Calculated 289.3 MOS/KG (273-304); Potassium 4.4 MMOL/L (3.5-5.1); Total Protein 6.2 G/DL (6.4-8.3)
[2018-03-31 05:41] LABS: Platelet Count 29 T/CUMM (130-400); White Blood Count 0.2 T/CUMM (4-12)
[2018-03-31 07:36] LABS: Lymphocytes 64 % (20-55); Platelet Estimate Decreased; Segmented Neutrophils 18 % (50-85); Total Cells Counted 100
[2018-03-31] MEDS: NOREPINEPHRINE 8 MG in SODIUM CHLORIDE 0.9% 242 ML IV PRN (08:02)
[2018-03-31] MEDS: INSULIN LISPRO 100 UNIT/ML SUBCUT SCH ×4 (08:35→21:03)
[2018-03-31] MEDS: PREGABALIN 100 MG CAPSULE PO SCH ×2 (08:36→21:04)
[2018-03-31] MEDS: PANTOPRAZOLE 40 MG TABLET PO SCH (08:36)
[2018-03-31] MEDS: FILGRASTIM-SNDZ 480 MCG/0.8 ML SYRINGE SUBCUT SCH (08:37)
[2018-03-31] MEDS: ALPRAZolam 0.5 MG TABLET PO PRN (08:41)
[2018-03-31] MEDS: SODIUM CHLORIDE 0.9% 1,000 ML IV SCH ×3 (09:42→21:01)
[2018-03-31] MEDS ORDERED: MAGNESIUM SULF RIDER 2 GM in PREMIX 1 EACH IV PRN (09:45)
[2018-03-31] MEDS: oxyCODONE/ACETAMINOPHEN 5-325 MG TABLET PO PRN (17:31)
[2018-03-31] MEDS: ASPIRIN EC 81 MG TABLET PO SCH (21:03)
[2018-03-31] MEDS: INSULIN GLARGINE 100 UNIT/ML SUBCUT SCH (21:04)
[2018-04-01] MEDS: ALBUTEROL/IPRATROPIUM 3 ML NEB RESP TX PRN (00:20)
[2018-04-01 04:32] LABS: Hematocrit 24.4 VOL% (35.7-47.0); Hemoglobin 7.9 GM/DL (12.0-16.0); Lymphocytes # 0.2 10*3/uL (1.4-4.0); Lymphocytes % 61.3 % (21.3-54.2); Mean Corpuscular HGB Conc 32.4 GM/DL (32-36); Mean Corpuscular Hemoglobin 29 PG (27-34); Mean Corpuscular Volume 89.4 FL (87-102); Mean Platelet Volume 10.3 FL (9.6-12.0); Monocytes % 9.7 % (1.7-12.7); NRBC # 0.02 10*3/uL; Neutrophils # 0.1 10*3/uL (1.4-7.4); Red Blood Count 2.73 MC/CUMM (3.8-5.5); Red Cell Distribution Width 12.5 % (9.3-17.3)
[2018-04-01 04:42] LABS: Calcium 8.2 MG/DL (8.5-10.1); Osmolality,Calculated 288.4 MOS/KG (273-304)
[2018-04-01 05:06] LABS: Platelet Count 23 T/CUMM (130-400); White Blood Count 0.3 T/CUMM (4-12)
[2018-04-01 05:14] LABS: Band Neutrophils 25 % (0-10); Lymphocytes 50 % (20-55); Segmented Neutrophils 6 % (50-85); Total Cells Counted 100
[2018-04-01 05:15] LABS: Anisocytosis 1+; Hypochromasia 2+; Microcytosis 1+; Platelet Estimate Decreased
[2018-04-01] MEDS: methylPREDNISolone SOD SUC 40 MG/1 ML VIAL IV SCH ×4 (05:20→20:06)
[2018-04-01] MEDS: VANCOMYCIN INJ 1,500 MG in SODIUM CHLORIDE 0.9% 500 ML IV SCH ×2 (05:20→18:30)
[2018-04-01] MEDS: MEROPENEM 1,000 MG in SODIUM CHLORIDE 0.9% 100 ML IV SCH ×2 (05:20→17:55)
[2018-04-01] MEDS ORDERED: SODIUM CHLORIDE 0.9% 1,000 ML IV PRN (07:24)
[2018-04-01] MEDS: INSULIN LISPRO 100 UNIT/ML SUBCUT SCH ×4 (08:19→20:05)
[2018-04-01] MEDS: FILGRASTIM-SNDZ 480 MCG/0.8 ML SYRINGE SUBCUT SCH (08:21)
[2018-04-01] MEDS: PREGABALIN 100 MG CAPSULE PO SCH ×2 (08:22→20:06)
[2018-04-01] MEDS: PANTOPRAZOLE 40 MG TABLET PO SCH (08:22)
[2018-04-01] MEDS: SODIUM CHLORIDE 0.9% 1,000 ML IV SCH ×2 (09:30→22:33)
[2018-04-01] MEDS: SUCRALFATE 1 GM/10 ML UDCUP PO SCH ×3 (11:47→20:08)
[2018-04-01] MEDS ORDERED: FUROSEMIDE 40 MG/4 ML VIAL IV ONE ×2 (14:44→17:45)
[2018-04-01] MEDS ORDERED: FUROSEMIDE 40 MG/4 ML VIAL ONE (14:59)
[2018-04-01] MEDS: LEVOFLOXACIN INJ 750 MG in PREMIX 1 EACH IV SCH (18:30)
[2018-04-01] MEDS: INSULIN GLARGINE 100 UNIT/ML SUBCUT SCH (20:05)
[2018-04-01] MEDS: ASPIRIN EC 81 MG TABLET PO SCH (20:07)
[2018-04-01] MEDS: ALPRAZolam 0.5 MG TABLET PO PRN (20:18)
[2018-04-02] MEDS: methylPREDNISolone SOD SUC 40 MG/1 ML VIAL IV SCH ×4 (02:27→20:48)
[2018-04-02] MEDS: MEROPENEM 1,000 MG in SODIUM CHLORIDE 0.9% 100 ML IV SCH ×2 (03:39→17:39)
[2018-04-02 03:45] LABS: Basophils % 0.8 % (0.0-0.8); Hematocrit 28.4 VOL% (35.7-47.0); Hemoglobin 9.5 GM/DL (12.0-16.0); Immature Granulocytes % 15.1 %; Immature Granulocytes Absolute 0.19 #; Lymphocytes # 0.5 10*3/uL (1.4-4.0); Lymphocytes % 38.1 % (21.3-54.2); Mean Corpuscular HGB Conc 33.5 GM/DL (32-36); Mean Corpuscular Hemoglobin 29 PG (27-34); Mean Corpuscular Volume 87.9 FL (87-102); Monocytes # 0.2 10*3/uL (0.11-0.8); Monocytes % 11.9 % (1.7-12.7); NRBC # 0.02 10*3/uL; Neutrophils # 0.4 10*3/uL (1.4-7.4); Neutrophils % 34.1 % (38.7-73.9); Red Blood Count 3.23 MC/CUMM (3.8-5.5); Red Cell Distribution Width 12.8 % (9.3-17.3); White Blood Count 1.3 T/CUMM (4-12)
[2018-04-02 03:56] LABS: Platelet Count 34 T/CUMM (130-400)
[2018-04-02 04:04] LABS: Albumin 1.5 G/DL (3.4-5.0); Bilirubin,Total 0.5 MG/DL (0.2-1.0); Potassium 3.2 MMOL/L (3.5-5.1); Total Protein 5.8 G/DL (6.4-8.3)
[2018-04-02] MEDS: VANCOMYCIN INJ 1,500 MG in SODIUM CHLORIDE 0.9% 500 ML IV SCH ×2 (04:12→20:51)
[2018-04-02 04:30] LABS: Lymphocytes 69 % (20-55); Nucleated Red Blood Cells 1 (0-5); Segmented Neutrophils 23 % (50-85)
[2018-04-02 04:31] LABS: Hypochromasia 1+; Microcytosis 1+; Platelet Estimate Decreased; Total Cells Counted 100
[2018-04-02] MEDS: PANTOPRAZOLE 40 MG TABLET PO SCH (08:29)
[2018-04-02] MEDS: PREGABALIN 100 MG CAPSULE PO SCH ×2 (08:29→20:47)
[2018-04-02] MEDS: SUCRALFATE 1 GM/10 ML UDCUP PO SCH ×4 (08:30→20:49)
[2018-04-02] MEDS: INSULIN LISPRO 100 UNIT/ML SUBCUT SCH ×4 (08:32→20:50)
[2018-04-02] MEDS: FILGRASTIM-SNDZ 480 MCG/0.8 ML SYRINGE SUBCUT SCH (08:32)
[2018-04-02] MEDS ORDERED: POTASSIUM CHLORIDE 20 MEQ TABLET PO ONE (11:30)
[2018-04-02] MEDS: SODIUM CHLORIDE 0.9% 1,000 ML IV SCH (11:47)
[2018-04-02] MEDS: ASPIRIN EC 81 MG TABLET PO SCH (20:48)
[2018-04-02] MEDS: INSULIN GLARGINE 100 UNIT/ML SUBCUT SCH (20:50)
[2018-04-03] MEDS: ALPRAZolam 0.5 MG TABLET PO PRN ×3 (03:41→23:27)
[2018-04-03] MEDS: oxyCODONE/ACETAMINOPHEN 5-325 MG TABLET PO PRN ×2 (03:41→16:27)
[2018-04-03] MEDS: MEROPENEM 1,000 MG in SODIUM CHLORIDE 0.9% 100 ML IV SCH ×2 (03:50→16:34)
[2018-04-03] MEDS: methylPREDNISolone SOD SUC 40 MG/1 ML VIAL IV SCH ×4 (03:50→22:29)
[2018-04-03] MEDS: SODIUM CHLORIDE 0.9% 1,000 ML IV SCH ×2 (05:19→15:03)
[2018-04-03] MEDS: VANCOMYCIN INJ 1,500 MG in SODIUM CHLORIDE 0.9% 500 ML IV SCH ×2 (05:19→17:48)
[2018-04-03 05:27] LABS: Basophils % 1.3 % (0.0-0.8); Hematocrit 28.8 VOL% (35.7-47.0); Hemoglobin 9.4 GM/DL (12.0-16.0); Immature Granulocytes Absolute 0.44 #; Lymphocytes # 0.9 10*3/uL (1.4-4.0); Mean Corpuscular HGB Conc 32.6 GM/DL (32-36); Mean Corpuscular Hemoglobin 30 PG (27-34); Mean Corpuscular Volume 90.9 FL (87-102); Monocytes # 0.4 10*3/uL (0.11-0.8); Monocytes % 12.7 % (1.7-12.7); Neutrophils # 1.4 10*3/uL (1.4-7.4); Red Blood Count 3.17 MC/CUMM (3.8-5.5); Red Cell Distribution Width 13.1 % (9.3-17.3); White Blood Count 3.2 T/CUMM (4-12)
[2018-04-03 05:38] LABS: Platelet Count 29 T/CUMM (130-400)
[2018-04-03 05:54] LABS: Band Neutrophils 4 % (0-10); Hypochromasia 1+; Lymphocytes 27 % (20-55); Nucleated Red Blood Cells 2 (0-5); Platelet Estimate Decreased; Segmented Neutrophils 50 % (50-85); Total Cells Counted 100
[2018-04-03 05:55] LABS: Atypical Lymphocytes Few; Microcytosis 1+
[2018-04-03 06:05] LABS: Albumin 1.6 G/DL (3.4-5.0); Bilirubin,Total 0.8 MG/DL (0.2-1.0); Calcium 8.2 MG/DL (8.5-10.1); Osmolality,Calculated 297.7 MOS/KG (273-304); Potassium 3.5 MMOL/L (3.5-5.1); Total Protein 5.6 G/DL (6.4-8.3)
[2018-04-03] MEDS: SUCRALFATE 1 GM/10 ML UDCUP PO SCH ×4 (08:23→21:17)
[2018-04-03] MEDS: INSULIN LISPRO 100 UNIT/ML SUBCUT SCH ×4 (08:23→21:27)
[2018-04-03] MEDS: PREGABALIN 100 MG CAPSULE PO SCH ×2 (08:24→21:18)
[2018-04-03] MEDS: PANTOPRAZOLE 40 MG TABLET PO SCH (08:24)
[2018-04-03] MEDS: FILGRASTIM-SNDZ 480 MCG/0.8 ML SYRINGE SUBCUT SCH (09:24)
[2018-04-03 14:02] LABS: Troponin I < 0.015 NG/ML (0.00-0.045)
[2018-04-03] MEDS: ASPIRIN EC 81 MG TABLET PO SCH (21:17)
[2018-04-03] MEDS: INSULIN GLARGINE 100 UNIT/ML SUBCUT SCH (21:17)
[2018-04-03] MEDS: LEVOFLOXACIN INJ 750 MG in PREMIX 1 EACH IV SCH (22:29)
[2018-04-03] MEDS ORDERED: HYDROcodone/CHLORPHENIRAMINE ER 5 ML UDCUP PO PRN (23:10)
[2018-04-03] MEDS ORDERED: guaiFENesin 200 MG/10 ML UDCUP PO PRN (23:12)
[2018-04-03] MEDS ORDERED: ETOMIDATE 20 MG/10 ML VIAL IV ONE (23:38)
[2018-04-03] MEDS ORDERED: SUCCINYLCHOLINE 200 MG/10 ML VIAL ONE (23:38)
[2018-04-03] MEDS ORDERED: ALBUTEROL 2.5 MG/3 ML NEB RESP TX PRN (23:45)
[2018-04-03] MEDS: ALBUTEROL/IPRATROPIUM 3 ML NEB RESP TX PRN (23:46)
[2018-04-03] MEDS ORDERED: methylPREDNISolone SOD SUC 125 MG/2 ML VIAL IV ONE (23:47)
[2018-04-03] MEDS ORDERED: FUROSEMIDE 40 MG/4 ML VIAL IV ONE (23:47)
[2018-04-04] MEDS ORDERED: PROPOFOL 1,000 MG/100 ML BOTTLE IV ONE (00:01)
[2018-04-04] MEDS ORDERED: ETOMIDATE 20 MG/10 ML VIAL IV ONE ×2 (00:04→00:09)
[2018-04-04] MEDS ORDERED: SUCCINYLCHOLINE 200 MG/10 ML VIAL IV ONE (00:08)
[2018-04-04] MEDS: PROPOFOL 1,000 MG/100 ML BOTTLE IV SCH ×8 (00:30→22:00)
[2018-04-04 00:59] LABS: ABG Base Excess 2.6 MMOL/L (-2.5-2.5); ABG HCO3 26.6 MMOL/L (20-26); ABG Oxygen Saturation 89.6 % (95-100); ABG PCO2 62.5 MM HG (35-48); ABG PO2 67.6 MM HG (80-95); ABG TCO2 27.9 MMOL/L (23-27)
[2018-04-04] MEDS: MORPHINE 4 MG/1 ML VIAL IV PRN (01:19)
[2018-04-04] MEDS: ALBUTEROL/IPRATROPIUM 3 ML NEB RESP TX SCH ×4 (02:48→19:30)
[2018-04-04 04:05] LABS: Hematocrit 27.8 VOL% (35.7-47.0); Immature Granulocytes % 9.1 %; Immature Granulocytes Absolute 0.59 #; Lymphocytes # 1.3 10*3/uL (1.4-4.0); Lymphocytes % 20.3 % (21.3-54.2); Mean Corpuscular HGB Conc 32.4 GM/DL (32-36); Mean Corpuscular Hemoglobin 29 PG (27-34); Mean Corpuscular Volume 89.7 FL (87-102); Mean Platelet Volume 13.8 FL (9.6-12.0); Monocytes # 0.8 10*3/uL (0.11-0.8); Monocytes % 11.9 % (1.7-12.7); NRBC # 0.06 10*3/uL; Neutrophils # 3.8 10*3/uL (1.4-7.4); Neutrophils % 58.7 % (38.7-73.9); Red Cell Distribution Width 13.3 % (9.3-17.3); White Blood Count 6.5 T/CUMM (4-12)
[2018-04-04 04:06] LABS: Platelet Count 65 T/CUMM (130-400)
[2018-04-04] MEDS: methylPREDNISolone SOD SUC 40 MG/1 ML VIAL IV SCH ×4 (04:13→20:07)
[2018-04-04] MEDS: MEROPENEM 1,000 MG in SODIUM CHLORIDE 0.9% 100 ML IV SCH ×3 (04:13→18:47)
[2018-04-04 04:27] LABS: Albumin 1.7 G/DL (3.4-5.0); Bilirubin,Total 0.7 MG/DL (0.2-1.0); Calcium 8.2 MG/DL (8.5-10.1); Osmolality,Calculated 294.7 MOS/KG (273-304); Potassium 3.3 MMOL/L (3.5-5.1); Total Protein 5.5 G/DL (6.4-8.3)
[2018-04-04 04:47] LABS: Platelet Estimate Decreased
[2018-04-04 04:48] LABS: Polychromasia Few
[2018-04-04] MEDS: SODIUM CHLORIDE 0.9% 1,000 ML IV SCH ×2 (05:37→17:36)
[2018-04-04 05:56] LABS: ABG HCO3 30.8 MMOL/L (20-26); ABG PH 7.409 (7.35-7.45); ABG PO2 83.3 MM HG (80-95); ABG TCO2 30.1 MMOL/L (23-27); Allen Test Positive; Pt O2 Delivery Device Ventilator
[2018-04-04] MEDS ORDERED: FUROSEMIDE 40 MG/4 ML VIAL IV ONE (06:33)
[2018-04-04] MEDS: VANCOMYCIN INJ 1,500 MG in SODIUM CHLORIDE 0.9% 500 ML IV SCH ×2 (06:37→18:47)
[2018-04-04] MEDS: INSULIN LISPRO 100 UNIT/ML SUBCUT SCH ×4 (08:53→20:08)
[2018-04-04] MEDS: SUCRALFATE 1 GM/10 ML UDCUP PO SCH ×4 (08:54→20:07)
[2018-04-04] MEDS: PANTOPRAZOLE 40 MG TABLET PO SCH (09:46)
[2018-04-04] MEDS: PREGABALIN 100 MG CAPSULE PO SCH ×2 (09:47→20:07)
[2018-04-04] MEDS ORDERED: MIDAZOLAM 2 MG/2 ML VIAL ONE (10:59)
[2018-04-04] MEDS ORDERED: MIDAZOLAM 2 MG/2 ML VIAL IV ONE (11:01)
[2018-04-04] MEDS: PANTOPRAZOLE 40 MG VIAL IV SCH (11:05)
[2018-04-04] MEDS: FLUTICASONE 50 MCG NASAL SPRAY 16 GM BOTTLE BOTH NARES SCH (13:11)
[2018-04-04] MEDS: fentaNYL INJ 1,250 MCG in SODIUM CHLORIDE 0.9% 225 ML IV PRN (13:12)
[2018-04-04] MEDS: FILGRASTIM-SNDZ 480 MCG/0.8 ML SYRINGE SUBCUT SCH (15:13)
[2018-04-04] MEDS ORDERED: POTASSIUM CHLORIDE 20 MEQ/15 ML UDCUP PER TUBE PRN (16:08)
[2018-04-04] MEDS: POTASSIUM CHLORIDE 20 MEQ/15 ML UDCUP PER TUBE PRN ×3 (17:38→21:45)
[2018-04-04] MEDS: ASPIRIN EC 81 MG TABLET PO SCH (20:07)
[2018-04-04] MEDS: LEVOFLOXACIN INJ 750 MG in PREMIX 1 EACH IV SCH (20:08)
[2018-04-04] MEDS: INSULIN GLARGINE 100 UNIT/ML SUBCUT SCH (20:09)
[2018-04-05] MEDS: fentaNYL INJ 1,250 MCG in SODIUM CHLORIDE 0.9% 225 ML IV PRN ×2 (00:08→12:20)
[2018-04-05] MEDS: PROPOFOL 1,000 MG/100 ML BOTTLE IV SCH ×7 (00:56→23:11)
[2018-04-05] MEDS: ALBUTEROL/IPRATROPIUM 3 ML NEB RESP TX SCH ×4 (02:00→19:27)
[2018-04-05] MEDS: MEROPENEM 1,000 MG in SODIUM CHLORIDE 0.9% 100 ML IV SCH ×3 (02:08→17:20)
[2018-04-05] MEDS: methylPREDNISolone SOD SUC 40 MG/1 ML VIAL IV SCH ×4 (02:08→20:08)
[2018-04-05 04:36] LABS: Allen Test Positive; Pt O2 Delivery Device Ventilator
[2018-04-05 04:37] LABS: ABG Base Excess 9.8 MMOL/L (-2.5-2.5); ABG HCO3 33.6 MMOL/L (20-26); ABG PCO2 65.3 MM HG (35-48); ABG PH 7.365 (7.35-7.45); ABG TCO2 34.4 MMOL/L (23-27)
[2018-04-05 05:15] LABS: Basophils % 0.1 % (0.0-0.8); Hematocrit 27.3 VOL% (35.7-47.0); Hemoglobin 8.9 GM/DL (12.0-16.0); Immature Granulocytes % 8.9 %; Immature Granulocytes Absolute 0.88 #; Lymphocytes % 10.4 % (21.3-54.2); Mean Corpuscular HGB Conc 32.6 GM/DL (32-36); Mean Corpuscular Hemoglobin 31 PG (27-34); Mean Corpuscular Volume 93.8 FL (87-102); Monocytes # 0.9 10*3/uL (0.11-0.8); Monocytes % 9.4 % (1.7-12.7); NRBC # 0.06 10*3/uL; Neutrophils # 7.1 10*3/uL (1.4-7.4); Neutrophils % 71.2 % (38.7-73.9); Platelet Count 56 T/CUMM (130-400); Red Blood Count 2.91 MC/CUMM (3.8-5.5); Red Cell Distribution Width 13.3 % (9.3-17.3); White Blood Count 9.9 T/CUMM (4-12)
[2018-04-05] MEDS: VANCOMYCIN INJ 1,500 MG in SODIUM CHLORIDE 0.9% 500 ML IV SCH ×2 (05:15→17:05)
[2018-04-05 05:44] LABS: Albumin 1.7 G/DL (3.4-5.0); Bilirubin,Total 0.8 MG/DL (0.2-1.0); Calcium 7.4 MG/DL (8.5-10.1); Osmolality,Calculated 296.6 MOS/KG (273-304); Potassium 3.9 MMOL/L (3.5-5.1); Total Protein 5.3 G/DL (6.4-8.3)
[2018-04-05] MEDS ORDERED: FUROSEMIDE 40 MG/4 ML VIAL IV ONE (06:59)
[2018-04-05] MEDS: PREGABALIN 100 MG CAPSULE PO SCH ×2 (08:20→20:09)
[2018-04-05] MEDS: FILGRASTIM-SNDZ 480 MCG/0.8 ML SYRINGE SUBCUT SCH (08:21)
[2018-04-05] MEDS: POTASSIUM CHLORIDE 20 MEQ/15 ML UDCUP PER TUBE PRN (08:21)
[2018-04-05] MEDS: SUCRALFATE 1 GM/10 ML UDCUP PO SCH ×4 (08:21→20:08)
[2018-04-05] MEDS: PANTOPRAZOLE 40 MG VIAL IV SCH (08:22)
[2018-04-05 08:38] LABS: Band Neutrophils 8 % (0-10); Hypochromasia 2+; Lymphocytes 7 % (20-55); Nucleated Red Blood Cells 1 (0-5); Platelet Estimate Decreased; Polychromasia Few; Segmented Neutrophils 75 % (50-85); Total Cells Counted 100
[2018-04-05] MEDS: INSULIN LISPRO 100 UNIT/ML SUBCUT SCH ×4 (09:07→20:09)
[2018-04-05] MEDS: FLUTICASONE 50 MCG NASAL SPRAY 16 GM BOTTLE BOTH NARES SCH (10:11)
[2018-04-05] MEDS: SODIUM CHLORIDE 0.9% 1,000 ML IV SCH (17:05)
[2018-04-05] MEDS: INSULIN GLARGINE 100 UNIT/ML SUBCUT SCH (20:08)
[2018-04-05] MEDS: LEVOFLOXACIN INJ 750 MG in PREMIX 1 EACH IV SCH (20:08)
[2018-04-05] MEDS: ASPIRIN EC 81 MG TABLET PO SCH (20:08)
[2018-04-06] MEDS: ALBUTEROL/IPRATROPIUM 3 ML NEB RESP TX SCH ×4 (00:04→19:27)
[2018-04-06] MEDS: INSULIN LISPRO 100 UNIT/ML SUBCUT SCH ×5 (00:09→23:34)
[2018-04-06] MEDS: fentaNYL INJ 1,250 MCG in SODIUM CHLORIDE 0.9% 225 ML IV PRN ×3 (00:10→17:08)
[2018-04-06] MEDS: MEROPENEM 1,000 MG in SODIUM CHLORIDE 0.9% 100 ML IV SCH ×3 (01:15→18:40)
[2018-04-06] MEDS: methylPREDNISolone SOD SUC 40 MG/1 ML VIAL IV SCH ×4 (01:15→20:25)
[2018-04-06] MEDS: PROPOFOL 1,000 MG/100 ML BOTTLE IV SCH ×7 (02:00→20:57)
[2018-04-06] MEDS: VANCOMYCIN INJ 1,500 MG in SODIUM CHLORIDE 0.9% 500 ML IV SCH (04:07)
[2018-04-06 04:38] LABS: ABG Base Excess 11.3 MMOL/L (-2.5-2.5); ABG Oxygen Saturation 98.9 % (95-100); ABG PCO2 51.4 MM HG (35-48); ABG PH 7.462 (7.35-7.45); ABG TCO2 33.7 MMOL/L (23-27); Allen Test Positive; Pt O2 Delivery Device Ventilator
[2018-04-06 05:40] LABS: Hematocrit 27.2 VOL% (35.7-47.0); Hemoglobin 8.6 GM/DL (12.0-16.0); Immature Granulocytes % 11.1 %; Immature Granulocytes Absolute 1.26 #; Lymphocytes # 1.2 10*3/uL (1.4-4.0); Lymphocytes % 10.6 % (21.3-54.2); Mean Corpuscular HGB Conc 31.6 GM/DL (32-36); Mean Corpuscular Hemoglobin 29 PG (27-34); Mean Corpuscular Volume 92.5 FL (87-102); Monocytes # 0.9 10*3/uL (0.11-0.8); Monocytes % 7.9 % (1.7-12.7); NRBC # 0.03 10*3/uL; Neutrophils % 70.4 % (38.7-73.9); Red Blood Count 2.94 MC/CUMM (3.8-5.5); Red Cell Distribution Width 13.1 % (9.3-17.3); White Blood Count 11.4 T/CUMM (4-12)
[2018-04-06 05:43] LABS: Platelet Count 38 T/CUMM (130-400)
[2018-04-06 06:11] LABS: Albumin 1.6 G/DL (3.4-5.0); Bilirubin,Total 0.7 MG/DL (0.2-1.0); Calcium 8.3 MG/DL (8.5-10.1); Osmolality,Calculated 294.1 MOS/KG (273-304); Potassium 3.6 MMOL/L (3.5-5.1); Total Protein 5.2 G/DL (6.4-8.3)
[2018-04-06 06:22] LABS: Band Neutrophils 3 % (0-10); Lymphocytes 8 % (20-55); Nucleated Red Blood Cells 1 (0-5); Segmented Neutrophils 82 % (50-85); Total Cells Counted 100
[2018-04-06 06:23] LABS: Hypochromasia 1+
[2018-04-06 06:24] LABS: Microcytosis 1+; Platelet Estimate Decreased
[2018-04-06] MEDS: POTASSIUM CHLORIDE 20 MEQ/15 ML UDCUP PER TUBE PRN ×2 (06:39→09:10)
[2018-04-06] MEDS ORDERED: PRAVASTATIN 40 MG TABLET PO SCH (09:00)
[2018-04-06] MEDS: PREGABALIN 100 MG CAPSULE PO SCH ×2 (09:07→20:24)
[2018-04-06] MEDS: SUCRALFATE 1 GM/10 ML UDCUP PO SCH ×4 (09:08→20:25)
[2018-04-06] MEDS: PANTOPRAZOLE 40 MG VIAL IV SCH (09:15)
[2018-04-06] MEDS: FILGRASTIM-SNDZ 480 MCG/0.8 ML SYRINGE SUBCUT SCH (09:22)
[2018-04-06] MEDS: FLUTICASONE 50 MCG NASAL SPRAY 16 GM BOTTLE BOTH NARES SCH (11:58)
[2018-04-06] MEDS: SODIUM CHLORIDE 0.9% 1,000 ML IV SCH (15:26)
[2018-04-06] MEDS: LEVOFLOXACIN INJ 750 MG in PREMIX 1 EACH IV SCH (20:24)
[2018-04-06] MEDS: FENOFIBRATE 145 MG TABLET PO SCH (20:24)
[2018-04-06] MEDS: INSULIN GLARGINE 100 UNIT/ML SUBCUT SCH (20:24)
[2018-04-06] MEDS: ASPIRIN EC 81 MG TABLET PO SCH (20:26)
[2018-04-07] MEDS: PROPOFOL 1,000 MG/100 ML BOTTLE IV SCH ×8 (00:04→23:15)
[2018-04-07] MEDS: ALBUTEROL/IPRATROPIUM 3 ML NEB RESP TX SCH ×4 (00:35→20:28)
[2018-04-07] MEDS: methylPREDNISolone SOD SUC 40 MG/1 ML VIAL IV SCH ×4 (01:57→20:24)
[2018-04-07] MEDS: fentaNYL INJ 1,250 MCG in SODIUM CHLORIDE 0.9% 225 ML IV PRN ×3 (01:57→19:05)
[2018-04-07] MEDS: MEROPENEM 1,000 MG in SODIUM CHLORIDE 0.9% 100 ML IV SCH ×3 (01:58→18:01)
[2018-04-07 03:14] LABS: ABG HCO3 33.8 MMOL/L (20-26); ABG Oxygen Saturation 98.4 % (95-100); ABG PH 7.445 (7.35-7.45); ABG TCO2 32.5 MMOL/L (23-27); Allen Test Positive; Pt O2 Delivery Device Ventilator
[2018-04-07 04:42] LABS: Basophils % 0.1 % (0.0-0.8); Hematocrit 27.9 VOL% (35.7-47.0); Hemoglobin 8.9 GM/DL (12.0-16.0); Immature Granulocytes % 8.5 %; Immature Granulocytes Absolute 1.19 #; Lymphocytes # 1.2 10*3/uL (1.4-4.0); Lymphocytes % 8.5 % (21.3-54.2); Mean Corpuscular HGB Conc 31.9 GM/DL (32-36); Mean Corpuscular Hemoglobin 29 PG (27-34); Mean Corpuscular Volume 90.6 FL (87-102); Monocytes # 1.2 10*3/uL (0.11-0.8); Monocytes % 8.5 % (1.7-12.7); NRBC # 0.04 10*3/uL; Neutrophils # 10.5 10*3/uL (1.4-7.4); Neutrophils % 74.4 % (38.7-73.9); Platelet Count 41 T/CUMM (130-400); Red Blood Count 3.08 MC/CUMM (3.8-5.5); Red Cell Distribution Width 13.1 % (9.3-17.3)
[2018-04-07 04:52] LABS: INR 0.9; PT Patient Result 10.2 SECS; Partial Thromboplastin Time 22.9 SECS (0-40)
[2018-04-07 05:01] LABS: Albumin 1.9 G/DL (3.4-5.0); Bilirubin,Total 0.7 MG/DL (0.2-1.0); Calcium 8.4 MG/DL (8.5-10.1); Osmolality,Calculated 291.3 MOS/KG (273-304); Potassium 4.1 MMOL/L (3.5-5.1); Total Protein 5.4 G/DL (6.4-8.3)
[2018-04-07 05:10] LABS: Prealbumin 23.3 MG/DL (20-40)
[2018-04-07 05:14] LABS: Band Neutrophils 6 % (0-10); Hypochromasia 1+; Lymphocytes 3 % (20-55); Myelocytes 1 %; Ovalocytes Slight; Platelet Estimate Decreased; Segmented Neutrophils 87 % (50-85); Total Cells Counted 100
[2018-04-07 05:15] LABS: Microcytosis Slight
[2018-04-07] MEDS: INSULIN LISPRO 100 UNIT/ML SUBCUT SCH ×4 (05:39→23:23)
[2018-04-07] MEDS: SUCRALFATE 1 GM/10 ML UDCUP PO SCH ×4 (08:17→20:24)
[2018-04-07] MEDS: PREGABALIN 100 MG CAPSULE PO SCH ×2 (08:26→20:24)
[2018-04-07] MEDS: PANTOPRAZOLE 40 MG VIAL IV SCH (08:29)
[2018-04-07] MEDS: FLUTICASONE 50 MCG NASAL SPRAY 16 GM BOTTLE BOTH NARES SCH (09:09)
[2018-04-07] MEDS: FILGRASTIM-SNDZ 480 MCG/0.8 ML SYRINGE SUBCUT SCH (09:22)
[2018-04-07] MEDS: glipiZIDE 10 MG TABLET PER TUBE SCH ×2 (12:44→20:24)
[2018-04-07] MEDS: ASPIRIN EC 81 MG TABLET PO SCH (20:24)
[2018-04-07] MEDS: INSULIN GLARGINE 100 UNIT/ML SUBCUT SCH (20:24)
[2018-04-07] MEDS: FENOFIBRATE 145 MG TABLET PO SCH (20:24)
[2018-04-07] MEDS: LEVOFLOXACIN INJ 750 MG in PREMIX 1 EACH IV SCH (20:25)
[2018-04-07] MEDS: SODIUM CHLORIDE 0.9% 1,000 ML IV SCH (20:31)
[2018-04-08] MEDS: ALBUTEROL/IPRATROPIUM 3 ML NEB RESP TX SCH ×4 (01:18→19:56)
[2018-04-08] MEDS: MEROPENEM 1,000 MG in SODIUM CHLORIDE 0.9% 100 ML IV SCH ×3 (02:07→17:45)
[2018-04-08] MEDS: methylPREDNISolone SOD SUC 40 MG/1 ML VIAL IV SCH ×2 (02:07→09:33)
[2018-04-08] MEDS: PROPOFOL 1,000 MG/100 ML BOTTLE IV SCH ×2 (02:34→02:35)
[2018-04-08 04:58] LABS: Basophils % 0.1 % (0.0-0.8); Hematocrit 28.1 VOL% (35.7-47.0); Immature Granulocytes % 8.8 %; Lymphocytes # 1.2 10*3/uL (1.4-4.0); Lymphocytes % 7.9 % (21.3-54.2); Mean Corpuscular Hemoglobin 29 PG (27-34); Mean Corpuscular Volume 91.2 FL (87-102); Monocytes % 6.9 % (1.7-12.7); NRBC # 0.03 10*3/uL; Neutrophils # 11.2 10*3/uL (1.4-7.4); Neutrophils % 76.3 % (38.7-73.9); Red Blood Count 3.08 MC/CUMM (3.8-5.5); Red Cell Distribution Width 13.2 % (9.3-17.3); White Blood Count 14.7 T/CUMM (4-12)
[2018-04-08 05:21] LABS: Platelet Count 30 T/CUMM (130-400)
[2018-04-08 05:23] LABS: Calcium 8.4 MG/DL (8.5-10.1); Osmolality,Calculated 286.3 MOS/KG (273-304); Potassium 3.8 MMOL/L (3.5-5.1)
[2018-04-08 05:45] LABS: Lymphocytes 9 % (20-55); Platelet Estimate Decreased; Segmented Neutrophils 91 % (50-85); Total Cells Counted 100
[2018-04-08 05:46] LABS: Polychromasia Few
[2018-04-08] MEDS: POTASSIUM CHLORIDE 20 MEQ/15 ML UDCUP PER TUBE PRN (06:12)
[2018-04-08] MEDS: INSULIN LISPRO 100 UNIT/ML SUBCUT SCH ×3 (06:12→18:05)
[2018-04-08 07:06] LABS: ABG Base Excess 13.9 MMOL/L (-2.5-2.5); ABG HCO3 37.8 MMOL/L (20-26); ABG Oxygen Saturation 96.2 % (95-100); ABG PCO2 52.5 MM HG (35-48); ABG PH 7.486 (7.35-7.45); ABG TCO2 35.9 MMOL/L (23-27); Allen Test Positive
[2018-04-08] MEDS ORDERED: MYLANTA/LIDO VISC 2:1 300 ML BOTTLE SWISH/SWAL PRN (09:20)
[2018-04-08] MEDS ORDERED: ALUMINUM/MAGNES/SIMETH MAX STR 30 ML UDCUP PO PRN (09:23)
[2018-04-08] MEDS: PANTOPRAZOLE 40 MG VIAL IV SCH (09:33)
[2018-04-08] MEDS: glipiZIDE 10 MG TABLET PER TUBE SCH ×2 (09:44→20:17)
[2018-04-08] MEDS: PREGABALIN 100 MG CAPSULE PO SCH ×2 (09:44→20:17)
[2018-04-08] MEDS: SUCRALFATE 1 GM/10 ML UDCUP PO SCH ×5 (09:45→20:18)
[2018-04-08] MEDS: FLUTICASONE 50 MCG NASAL SPRAY 16 GM BOTTLE BOTH NARES SCH (09:45)
[2018-04-08] MEDS: FILGRASTIM-SNDZ 480 MCG/0.8 ML SYRINGE SUBCUT SCH (10:20)
[2018-04-08] MEDS: FLUCONAZOLE INJ 100 MG in IV BAG 1 EACH IV SCH (11:00)
[2018-04-08] MEDS: SODIUM CHLORIDE 0.9% 1,000 ML IV SCH (15:05)
[2018-04-08] MEDS: FENOFIBRATE 145 MG TABLET PO SCH (20:18)
[2018-04-08] MEDS: ASPIRIN EC 81 MG TABLET PO SCH (20:18)
[2018-04-08] MEDS: INSULIN GLARGINE 100 UNIT/ML SUBCUT SCH (20:24)
[2018-04-09] MEDS: INSULIN LISPRO 100 UNIT/ML SUBCUT SCH ×4 (00:18→19:08)
[2018-04-09] MEDS: ALBUTEROL/IPRATROPIUM 3 ML NEB RESP TX SCH ×4 (01:10→20:07)
[2018-04-09] MEDS: MEROPENEM 1,000 MG in SODIUM CHLORIDE 0.9% 100 ML IV SCH ×3 (02:11→19:11)
[2018-04-09 04:36] LABS: Allen Test Positive; Pt O2 Delivery Device Other
[2018-04-09 05:25] LABS: ABG Base Excess 5.7 MMOL/L (-2.5-2.5); ABG HCO3 29.5 MMOL/L (20-26); ABG Oxygen Saturation 94.3 % (95-100); ABG PCO2 41.9 MM HG (35-48); ABG PH 7.462 (7.35-7.45); ABG PO2 73.2 MM HG (80-95)
[2018-04-09 06:03] LABS: Basophils % 0.1 % (0.0-0.8); Hematocrit 30.9 VOL% (35.7-47.0); Hemoglobin 9.9 GM/DL (12.0-16.0); Immature Granulocytes Absolute 0.88 #; Lymphocytes # 2.5 10*3/uL (1.4-4.0); Lymphocytes % 16.6 % (21.3-54.2); Mean Corpuscular Hemoglobin 29 PG (27-34); Mean Corpuscular Volume 91.7 FL (87-102); Monocytes % 7.1 % (1.7-12.7); NRBC # 0.03 10*3/uL; Neutrophils # 10.3 10*3/uL (1.4-7.4); Neutrophils % 70.2 % (38.7-73.9); Platelet Count 45 T/CUMM (130-400); Red Blood Count 3.37 MC/CUMM (3.8-5.5); Red Cell Distribution Width 13.4 % (9.3-17.3); White Blood Count 14.7 T/CUMM (4-12)
[2018-04-09 06:12] LABS: Calcium 8.4 MG/DL (8.5-10.1); Osmolality,Calculated 278.4 MOS/KG (273-304); Potassium 3.4 MMOL/L (3.5-5.1)
[2018-04-09] MEDS: POTASSIUM CHLORIDE 20 MEQ/15 ML UDCUP PER TUBE PRN (06:35)
[2018-04-09 07:11] LABS: Band Neutrophils 5 % (0-10); Lymphocytes 15 % (20-55); Nucleated Red Blood Cells 1 (0-5); Segmented Neutrophils 77 % (50-85); Total Cells Counted 100
[2018-04-09 07:12] LABS: Hypochromasia 1+; Microcytosis Slight; Ovalocytes Slight; Platelet Estimate Decreased
[2018-04-09] MEDS: PREGABALIN 100 MG CAPSULE PO SCH ×2 (08:53→20:37)
[2018-04-09] MEDS: METOPROLOL TARTRATE 50 MG TABLET PO SCH (08:53)
[2018-04-09] MEDS: DULoxetine 30 MG CAPSULE PO SCH (08:54)
[2018-04-09] MEDS: PANTOPRAZOLE 40 MG TABLET PO SCH (08:54)
[2018-04-09] MEDS: SUCRALFATE 1 GM/10 ML UDCUP PO SCH ×4 (08:55→20:37)
[2018-04-09] MEDS ORDERED: methylPREDNISolone SOD SUC 40 MG/1 ML VIAL IV SCH (09:00)
[2018-04-09] MEDS: glipiZIDE 5 MG TABLET PO SCH ×2 (09:01→20:37)
[2018-04-09] MEDS: POTASSIUM CHLORIDE 20 MEQ TABLET PO SCH ×3 (09:01→19:11)
[2018-04-09] MEDS: FLUTICASONE 50 MCG NASAL SPRAY 16 GM BOTTLE BOTH NARES SCH (09:02)
[2018-04-09] MEDS: predniSONE 20 MG TABLET PO SCH ×2 (09:05→20:37)
[2018-04-09] MEDS: TRIAMCINOLONE 0.1% DENTAL PASTE 5 GM TUBE TOP SCH ×3 (09:55→20:38)
[2018-04-09] MEDS: FLUCONAZOLE INJ 100 MG in IV BAG 1 EACH IV SCH (11:09)
[2018-04-09] MEDS: ENOXAPARIN 40 MG/0.4 ML SYRINGE SUBCUT SCH (20:36)
[2018-04-09] MEDS: INSULIN GLARGINE 100 UNIT/ML SUBCUT SCH (20:36)
[2018-04-09] MEDS: FENOFIBRATE 145 MG TABLET PO SCH (20:36)
[2018-04-09] MEDS: ASPIRIN EC 81 MG TABLET PO SCH (20:37)
[2018-04-10] MEDS: ALBUTEROL/IPRATROPIUM 3 ML NEB RESP TX SCH ×5 (00:45→19:56)
[2018-04-10] MEDS: INSULIN LISPRO 100 UNIT/ML SUBCUT SCH ×5 (01:02→23:44)
[2018-04-10] MEDS: MEROPENEM 1,000 MG in SODIUM CHLORIDE 0.9% 100 ML IV SCH ×3 (01:41→18:12)
[2018-04-10 04:29] LABS: ABG Base Excess 0.4 MMOL/L (-2.5-2.5); ABG HCO3 24.7 MMOL/L (20-26); ABG Oxygen Saturation 92.7 % (95-100); ABG PCO2 39.3 MM HG (35-48); ABG PO2 69.3 MM HG (80-95); ABG TCO2 22.3 MMOL/L (23-27); Allen Test Positive
[2018-04-10 04:44] LABS: Basophils # 0.1 10*3/uL (0.0-0.2); Basophils % 0.6 % (0.0-0.8); Hematocrit 31.7 VOL% (35.7-47.0); Hemoglobin 10.4 GM/DL (12.0-16.0); Immature Granulocytes % 4.4 %; Immature Granulocytes Absolute 0.47 #; Lymphocytes # 1.3 10*3/uL (1.4-4.0); Lymphocytes % 12.4 % (21.3-54.2); Mean Corpuscular HGB Conc 32.8 GM/DL (32-36); Mean Corpuscular Hemoglobin 29 PG (27-34); Mean Corpuscular Volume 89.5 FL (87-102); Monocytes # 0.9 10*3/uL (0.11-0.8); Monocytes % 8.8 % (1.7-12.7); Neutrophils # 7.9 10*3/uL (1.4-7.4); Neutrophils % 73.8 % (38.7-73.9); Platelet Count 69 T/CUMM (130-400); Red Blood Count 3.54 MC/CUMM (3.8-5.5); Red Cell Distribution Width 13.3 % (9.3-17.3); White Blood Count 10.7 T/CUMM (4-12)
[2018-04-10 05:09] LABS: Calcium 8.8 MG/DL (8.5-10.1); Osmolality,Calculated 282.8 MOS/KG (273-304); Potassium 3.9 MMOL/L (3.5-5.1)
[2018-04-10 05:21] LABS: Lymphocytes 10 % (20-55); Platelet Estimate Decreased; Polychromasia Few; Segmented Neutrophils 84 % (50-85); Total Cells Counted 100
[2018-04-10] MEDS: DULoxetine 30 MG CAPSULE PO SCH (09:07)
[2018-04-10] MEDS: TRIAMCINOLONE 0.1% DENTAL PASTE 5 GM TUBE TOP SCH ×3 (09:08→20:48)
[2018-04-10] MEDS: PREGABALIN 100 MG CAPSULE PO SCH ×2 (09:08→20:47)
[2018-04-10] MEDS: FLUTICASONE 50 MCG NASAL SPRAY 16 GM BOTTLE BOTH NARES SCH (09:08)
[2018-04-10] MEDS: predniSONE 20 MG TABLET PO SCH ×2 (09:08→20:47)
[2018-04-10] MEDS: glipiZIDE 5 MG TABLET PO SCH ×2 (09:08→20:47)
[2018-04-10] MEDS: PANTOPRAZOLE 40 MG TABLET PO SCH (09:08)
[2018-04-10] MEDS: METOPROLOL TARTRATE 50 MG TABLET PO SCH (09:09)
[2018-04-10] MEDS: SUCRALFATE 1 GM/10 ML UDCUP PO SCH ×4 (09:09→20:46)
[2018-04-10] MEDS: FLUCONAZOLE INJ 100 MG in IV BAG 1 EACH IV SCH (13:53)
[2018-04-10] MEDS: ASPIRIN EC 81 MG TABLET PO SCH (20:46)
[2018-04-10] MEDS: FENOFIBRATE 145 MG TABLET PO SCH (20:46)
[2018-04-10] MEDS: INSULIN GLARGINE 100 UNIT/ML SUBCUT SCH (20:47)
[2018-04-10] MEDS: ENOXAPARIN 40 MG/0.4 ML SYRINGE SUBCUT SCH (20:47)
[2018-04-11] MEDS: ALBUTEROL/IPRATROPIUM 3 ML NEB RESP TX SCH ×4 (00:24→19:03)
[2018-04-11] MEDS: MEROPENEM 1,000 MG in SODIUM CHLORIDE 0.9% 100 ML IV SCH ×3 (01:33→19:01)
[2018-04-11 04:46] LABS: Basophils % 0.4 % (0.0-0.8); Hematocrit 31.7 VOL% (35.7-47.0); Hemoglobin 10.4 GM/DL (12.0-16.0); Immature Granulocytes % 4.9 %; Immature Granulocytes Absolute 0.41 #; Lymphocytes # 1.4 10*3/uL (1.4-4.0); Lymphocytes % 16.2 % (21.3-54.2); Mean Corpuscular HGB Conc 32.8 GM/DL (32-36); Mean Corpuscular Hemoglobin 30 PG (27-34); Mean Corpuscular Volume 90.3 FL (87-102); Monocytes # 0.9 10*3/uL (0.11-0.8); Monocytes % 10.5 % (1.7-12.7); Neutrophils # 5.7 10*3/uL (1.4-7.4); Red Blood Count 3.51 MC/CUMM (3.8-5.5); Red Cell Distribution Width 13.4 % (9.3-17.3); White Blood Count 8.4 T/CUMM (4-12)
[2018-04-11 04:49] LABS: Platelet Count 57 T/CUMM (130-400)
[2018-04-11 05:12] LABS: Calcium 8.9 MG/DL (8.5-10.1); Osmolality,Calculated 281.8 MOS/KG (273-304); Potassium 4.2 MMOL/L (3.5-5.1)
[2018-04-11 05:31] LABS: Band Neutrophils 1 % (0-10); Hypochromasia 1+; Lymphocytes 16 % (20-55); Ovalocytes Slight; Platelet Estimate Decreased; Segmented Neutrophils 71 % (50-85); Total Cells Counted 100
[2018-04-11] MEDS: INSULIN LISPRO 100 UNIT/ML SUBCUT SCH ×4 (05:58→23:52)
[2018-04-11] MEDS: SUCRALFATE 1 GM/10 ML UDCUP PO SCH ×4 (10:09→20:55)
[2018-04-11] MEDS: TRIAMCINOLONE 0.1% DENTAL PASTE 5 GM TUBE TOP SCH ×3 (10:09→20:57)
[2018-04-11] MEDS: METOPROLOL TARTRATE 50 MG TABLET PO SCH (10:10)
[2018-04-11] MEDS: predniSONE 20 MG TABLET PO SCH ×2 (10:10→20:56)
[2018-04-11] MEDS: glipiZIDE 5 MG TABLET PO SCH ×2 (10:10→20:56)
[2018-04-11] MEDS: PANTOPRAZOLE 40 MG TABLET PO SCH (10:10)
[2018-04-11] MEDS: PREGABALIN 100 MG CAPSULE PO SCH ×2 (10:11→20:56)
[2018-04-11] MEDS: FLUTICASONE 50 MCG NASAL SPRAY 16 GM BOTTLE BOTH NARES SCH (10:12)
[2018-04-11] MEDS: DULoxetine 30 MG CAPSULE PO SCH (10:14)
[2018-04-11] MEDS: FLUCONAZOLE INJ 100 MG in IV BAG 1 EACH IV SCH (13:05)
[2018-04-11] MEDS: FENOFIBRATE 145 MG TABLET PO SCH (20:56)
[2018-04-11] MEDS: INSULIN GLARGINE 100 UNIT/ML SUBCUT SCH (20:56)
[2018-04-11] MEDS: ASPIRIN EC 81 MG TABLET PO SCH (20:56)
[2018-04-11] MEDS: ENOXAPARIN 40 MG/0.4 ML SYRINGE SUBCUT SCH (20:57)
[2018-04-12] MEDS: MEROPENEM 1,000 MG in SODIUM CHLORIDE 0.9% 100 ML IV SCH ×3 (01:21→19:20)
[2018-04-12] MEDS: ALBUTEROL/IPRATROPIUM 3 ML NEB RESP TX SCH ×4 (01:27→19:30)
[2018-04-12] MEDS: INSULIN LISPRO 100 UNIT/ML SUBCUT SCH ×3 (05:43→19:44)
[2018-04-12] MEDS: SUCRALFATE 1 GM/10 ML UDCUP PO SCH ×4 (08:20→20:58)
[2018-04-12] MEDS: FLUTICASONE 50 MCG NASAL SPRAY 16 GM BOTTLE BOTH NARES SCH (10:26)
[2018-04-12] MEDS: PREGABALIN 100 MG CAPSULE PO SCH ×2 (10:26→20:57)
[2018-04-12] MEDS: TRIAMCINOLONE 0.1% DENTAL PASTE 5 GM TUBE TOP SCH ×3 (10:26→20:58)
[2018-04-12] MEDS: PANTOPRAZOLE 40 MG TABLET PO SCH (10:27)
[2018-04-12] MEDS: glipiZIDE 5 MG TABLET PO SCH ×2 (10:27→20:57)
[2018-04-12] MEDS: predniSONE 20 MG TABLET PO SCH ×2 (10:27→20:57)
[2018-04-12] MEDS: METOPROLOL TARTRATE 50 MG TABLET PO SCH (10:27)
[2018-04-12] MEDS: DULoxetine 30 MG CAPSULE PO SCH (10:27)
[2018-04-12] MEDS: FENOFIBRATE 145 MG TABLET PO SCH (20:57)
[2018-04-12] MEDS: ASPIRIN EC 81 MG TABLET PO SCH (20:57)
[2018-04-12] MEDS: ENOXAPARIN 40 MG/0.4 ML SYRINGE SUBCUT SCH (20:57)
[2018-04-12] MEDS: INSULIN GLARGINE 100 UNIT/ML SUBCUT SCH (20:57)
[2018-04-13] MEDS: INSULIN LISPRO 100 UNIT/ML SUBCUT SCH ×4 (00:47→19:09)
[2018-04-13] MEDS: ALBUTEROL/IPRATROPIUM 3 ML NEB RESP TX SCH ×4 (01:04→19:10)
[2018-04-13] MEDS: MEROPENEM 1,000 MG in SODIUM CHLORIDE 0.9% 100 ML IV SCH ×3 (03:23→17:58)
[2018-04-13 05:35] LABS: Basophils % 0.3 % (0.0-0.8); Hematocrit 26.5 VOL% (35.7-47.0); Hemoglobin 8.5 GM/DL (12.0-16.0); Immature Granulocytes % 4.6 %; Immature Granulocytes Absolute 0.28 #; Lymphocytes # 1.4 10*3/uL (1.4-4.0); Lymphocytes % 23.6 % (21.3-54.2); Mean Corpuscular HGB Conc 32.1 GM/DL (32-36); Mean Corpuscular Hemoglobin 29 PG (27-34); Mean Corpuscular Volume 91.4 FL (87-102); Mean Platelet Volume 13.6 FL (9.6-12.0); Monocytes # 0.8 10*3/uL (0.11-0.8); Monocytes % 12.7 % (1.7-12.7); NRBC # 0.04 10*3/uL; Neutrophils # 3.6 10*3/uL (1.4-7.4); Neutrophils % 58.8 % (38.7-73.9); Platelet Count 66 T/CUMM (130-400); Red Cell Distribution Width 13.7 % (9.3-17.3); White Blood Count 6.1 T/CUMM (4-12)
[2018-04-13 05:36] LABS: Microcytosis Slight
[2018-04-13 05:37] LABS: Hypochromasia 1+; Ovalocytes Slight; Platelet Estimate Decreased
[2018-04-13] MEDS: SUCRALFATE 1 GM/10 ML UDCUP PO SCH ×4 (08:15→21:12)
[2018-04-13] MEDS: glipiZIDE 5 MG TABLET PO SCH ×2 (08:16→21:12)
[2018-04-13] MEDS: PANTOPRAZOLE 40 MG TABLET PO SCH (08:16)
[2018-04-13] MEDS: PREGABALIN 100 MG CAPSULE PO SCH ×2 (08:16→21:11)
[2018-04-13] MEDS: DULoxetine 30 MG CAPSULE PO SCH (08:16)
[2018-04-13] MEDS: METOPROLOL TARTRATE 50 MG TABLET PO SCH (08:16)
[2018-04-13] MEDS: predniSONE 20 MG TABLET PO SCH ×2 (08:16→21:12)
[2018-04-13] MEDS: TRIAMCINOLONE 0.1% DENTAL PASTE 5 GM TUBE TOP SCH ×3 (08:18→21:14)
[2018-04-13] MEDS: FLUTICASONE 50 MCG NASAL SPRAY 16 GM BOTTLE BOTH NARES SCH (08:18)
[2018-04-13] MEDS: oxyCODONE/ACETAMINOPHEN 5-325 MG TABLET PO PRN (09:46)
[2018-04-13] MEDS: MONTELUKAST 10 MG TABLET PO SCH (11:39)
[2018-04-13] MEDS: MORPHINE 4 MG/1 ML VIAL IV PRN (16:09)
[2018-04-13] MEDS: ENOXAPARIN 40 MG/0.4 ML SYRINGE SUBCUT SCH (21:11)
[2018-04-13] MEDS: INSULIN GLARGINE 100 UNIT/ML SUBCUT SCH (21:12)
[2018-04-13] MEDS: FENOFIBRATE 145 MG TABLET PO SCH (21:12)
[2018-04-13] MEDS: ASPIRIN EC 81 MG TABLET PO SCH (21:12)
[2018-04-14] MEDS: ALBUTEROL/IPRATROPIUM 3 ML NEB RESP TX SCH ×4 (00:45→20:45)
[2018-04-14] MEDS: INSULIN LISPRO 100 UNIT/ML SUBCUT SCH ×4 (01:34→18:22)
[2018-04-14] MEDS: MEROPENEM 1,000 MG in SODIUM CHLORIDE 0.9% 100 ML IV SCH ×2 (01:48→10:15)
[2018-04-14 05:16] LABS: Amorphous Crystals,Urine Occasional /HPF (Few); Apearance,Urine CLOUDY (Clear); Bilirubin,Urine Negative (Negative); Blood, Urine Negative (Negative); Glucose,Urine (UA) >=500 mg/dL (Negative); Ketones,Urine Negative (Negative); Mucus,Urine Occasional /LPF (Occasional); Nitrite,Urine Negative (Negative); Protein,Urine Negative; RBC,Urine 15 /HPF (0-4); Squamous Epithelial Cell,Urine Occasional /HPF (0-10); Urine Color Yellow (Yellow); Urine Specific Gravity 1.018 (1.001-1.035); Urine Urobilinogen < 2.0 EU/DL (0.2-1.0); WBC,Urine 33 /HPF (0-6)
[2018-04-14 05:20] LABS: Basophils % 0.3 % (0.0-0.8); Hematocrit 33.8 VOL% (35.7-47.0); Immature Granulocytes % 4.8 %; Immature Granulocytes Absolute 0.41 #; Lymphocytes # 1.6 10*3/uL (1.4-4.0); Lymphocytes % 18.6 % (21.3-54.2); Mean Corpuscular HGB Conc 32.5 GM/DL (32-36); Mean Corpuscular Hemoglobin 29 PG (27-34); Mean Corpuscular Volume 89.2 FL (87-102); Monocytes # 0.8 10*3/uL (0.11-0.8); Monocytes % 9.6 % (1.7-12.7); NRBC # 0.03 10*3/uL; Neutrophils # 5.7 10*3/uL (1.4-7.4); Neutrophils % 66.7 % (38.7-73.9); Red Cell Distribution Width 14.3 % (9.3-17.3)
[2018-04-14 05:21] LABS: Platelet Count 110 T/CUMM (130-400); Red Blood Count 3.79 MC/CUMM (3.8-5.5); White Blood Count 8.6 T/CUMM (4-12)
[2018-04-14 05:41] LABS: Hypochromasia 1+; Ovalocytes Slight; Platelet Estimate Decreased
[2018-04-14 05:42] LABS: Microcytosis Slight
[2018-04-14] MEDS: METOPROLOL TARTRATE 50 MG TABLET PO SCH (08:16)
[2018-04-14] MEDS: SUCRALFATE 1 GM/10 ML UDCUP PO SCH ×4 (08:16→20:41)
[2018-04-14] MEDS: glipiZIDE 5 MG TABLET PO SCH ×2 (08:16→20:41)
[2018-04-14] MEDS: predniSONE 20 MG TABLET PO SCH (08:16)
[2018-04-14] MEDS: MONTELUKAST 10 MG TABLET PO SCH (08:16)
[2018-04-14] MEDS: DULoxetine 30 MG CAPSULE PO SCH (08:16)
[2018-04-14] MEDS: PANTOPRAZOLE 40 MG TABLET PO SCH (08:16)
[2018-04-14] MEDS: FLUTICASONE 50 MCG NASAL SPRAY 16 GM BOTTLE BOTH NARES SCH (08:17)
[2018-04-14] MEDS: TRIAMCINOLONE 0.1% DENTAL PASTE 5 GM TUBE TOP SCH ×3 (08:18→20:41)
[2018-04-14] MEDS: PREGABALIN 100 MG CAPSULE PO SCH ×2 (10:20→20:41)
[2018-04-14] MEDS: oxyCODONE/ACETAMINOPHEN 5-325 MG TABLET PO PRN (11:48)
[2018-04-14] MEDS: ALPRAZolam 0.5 MG TABLET PO SCH ×2 (14:36→21:42)
[2018-04-14] MEDS: INSULIN GLARGINE 100 UNIT/ML SUBCUT SCH (20:41)
[2018-04-14] MEDS: ENOXAPARIN 40 MG/0.4 ML SYRINGE SUBCUT SCH (20:41)
[2018-04-14] MEDS: ASPIRIN EC 81 MG TABLET PO SCH (20:41)
[2018-04-14] MEDS: FENOFIBRATE 145 MG TABLET PO SCH (20:41)
[2018-04-15] MEDS: ALBUTEROL/IPRATROPIUM 3 ML NEB RESP TX SCH ×4 (00:50→19:41)
[2018-04-15] MEDS: INSULIN LISPRO 100 UNIT/ML SUBCUT SCH ×4 (01:33→19:43)
[2018-04-15] MEDS: oxyCODONE/ACETAMINOPHEN 5-325 MG TABLET PO PRN ×2 (01:59→20:53)
[2018-04-15] MEDS: ALPRAZolam 0.5 MG TABLET PO SCH ×3 (06:11→22:22)
[2018-04-15] MEDS: SUCRALFATE 1 GM/10 ML UDCUP PO SCH ×4 (08:14→20:53)
[2018-04-15] MEDS: PREGABALIN 100 MG CAPSULE PO SCH ×2 (11:14→20:52)
[2018-04-15] MEDS: DULoxetine 30 MG CAPSULE PO SCH (11:14)
[2018-04-15] MEDS: METOPROLOL TARTRATE 50 MG TABLET PO SCH (11:15)
[2018-04-15] MEDS: PANTOPRAZOLE 40 MG TABLET PO SCH (11:15)
[2018-04-15] MEDS: glipiZIDE 5 MG TABLET PO SCH ×2 (11:15→20:52)
[2018-04-15] MEDS: predniSONE 20 MG TABLET PO SCH (11:15)
[2018-04-15] MEDS: MONTELUKAST 10 MG TABLET PO SCH (11:15)
[2018-04-15] MEDS: TRIAMCINOLONE 0.1% DENTAL PASTE 5 GM TUBE TOP SCH ×3 (11:19→22:29)
[2018-04-15] MEDS: FLUTICASONE 50 MCG NASAL SPRAY 16 GM BOTTLE BOTH NARES SCH (11:19)
[2018-04-15] MEDS: FLUCONAZOLE 200 MG TABLET PO SCH (11:21)
[2018-04-15] MEDS: ASPIRIN EC 81 MG TABLET PO SCH (20:52)
[2018-04-15] MEDS: FENOFIBRATE 145 MG TABLET PO SCH (20:52)
[2018-04-15] MEDS: ENOXAPARIN 40 MG/0.4 ML SYRINGE SUBCUT SCH (20:53)
[2018-04-15] MEDS: INSULIN GLARGINE 100 UNIT/ML SUBCUT SCH (20:59)
[2018-04-16] MEDS: INSULIN LISPRO 100 UNIT/ML SUBCUT SCH ×4 (00:05→19:51)
[2018-04-16] MEDS: ALBUTEROL/IPRATROPIUM 3 ML NEB RESP TX SCH ×4 (00:36→19:25)
[2018-04-16] MEDS: ALPRAZolam 0.5 MG TABLET PO SCH ×3 (05:25→21:23)
[2018-04-16] MEDS: SUCRALFATE 1 GM/10 ML UDCUP PO SCH ×4 (07:36→21:23)
[2018-04-16] MEDS: predniSONE 20 MG TABLET PO SCH (09:19)
[2018-04-16] MEDS: PREGABALIN 100 MG CAPSULE PO SCH ×2 (09:19→21:23)
[2018-04-16] MEDS: MONTELUKAST 10 MG TABLET PO SCH (09:19)
[2018-04-16] MEDS: FLUCONAZOLE 200 MG TABLET PO SCH (09:19)
[2018-04-16] MEDS: glipiZIDE 5 MG TABLET PO SCH ×2 (09:19→21:23)
[2018-04-16] MEDS: DULoxetine 30 MG CAPSULE PO SCH (09:19)
[2018-04-16] MEDS: METOPROLOL TARTRATE 50 MG TABLET PO SCH (09:19)
[2018-04-16] MEDS: oxyCODONE/ACETAMINOPHEN 5-325 MG TABLET PO PRN ×2 (09:19→22:34)
[2018-04-16] MEDS: FLUTICASONE 50 MCG NASAL SPRAY 16 GM BOTTLE BOTH NARES SCH (10:25)
[2018-04-16] MEDS: TRIAMCINOLONE 0.1% DENTAL PASTE 5 GM TUBE TOP SCH ×3 (10:25→21:40)
[2018-04-16] MEDS: PANTOPRAZOLE 40 MG TABLET PO SCH (11:09)
[2018-04-16] MEDS: ASPIRIN EC 81 MG TABLET PO SCH (21:22)
[2018-04-16] MEDS: ENOXAPARIN 40 MG/0.4 ML SYRINGE SUBCUT SCH (21:23)
[2018-04-16] MEDS: FENOFIBRATE 145 MG TABLET PO SCH (21:23)
[2018-04-16] MEDS: INSULIN GLARGINE 100 UNIT/ML SUBCUT SCH (21:40)
[2018-04-17] MEDS: ALBUTEROL/IPRATROPIUM 3 ML NEB RESP TX SCH ×2 (00:21→07:25)
[2018-04-17] MEDS: INSULIN LISPRO 100 UNIT/ML SUBCUT SCH ×2 (06:05)
[2018-04-17] MEDS: ALPRAZolam 0.5 MG TABLET PO SCH (06:18)
[2018-04-17] MEDS: SUCRALFATE 1 GM/10 ML UDCUP PO SCH (08:18)
[2018-04-17 09:57] VITALS: BP 119/65
[2018-04-17] MEDS: DULoxetine 30 MG CAPSULE PO SCH (10:15)
[2018-04-17] MEDS: PREGABALIN 100 MG CAPSULE PO SCH (10:15)
[2018-04-17] MEDS: FLUCONAZOLE 200 MG TABLET PO SCH (10:15)
[2018-04-17] MEDS: glipiZIDE 5 MG TABLET PO SCH (10:15)
[2018-04-17] MEDS: MONTELUKAST 10 MG TABLET PO SCH (10:16)
[2018-04-17] MEDS: PANTOPRAZOLE 40 MG TABLET PO SCH (10:16)
[2018-04-17] MEDS: TRIAMCINOLONE 0.1% DENTAL PASTE 5 GM TUBE TOP SCH (10:16)
[2018-04-17] MEDS: predniSONE 20 MG TABLET PO SCH (10:16)
[2018-04-17] MEDS: METOPROLOL TARTRATE 50 MG TABLET PO SCH (10:16)
[2018-04-17] MEDS: FLUTICASONE 50 MCG NASAL SPRAY 16 GM BOTTLE BOTH NARES SCH (10:16)
== END 2018-04-17 11:25 | disposition swing bed (61) | DRG 853 ==
LOC: N.ED 14:50 → SUATTDRO 17:47 → N.CC 17:47 → N.4E 04-02 13:33 → N.ICU 04-03 23:46 → N.4E 04-09 14:16
PROVIDERS: ADMIT Internal Medicine; ATTEND Family Medicine

== ENCOUNTER 2018-05-11 06:13 | Inpatient (IN) ==
[2018-05-11 06:32] LABS: Allen Test Positive
[2018-05-11 06:33] LABS: ABG Base Excess -3.3 MMOL/L (-2.5-2.5); ABG HCO3 21.7 MMOL/L (20-26); ABG PCO2 36.8 MM HG (35-48); ABG PH 7.374 (7.35-7.45); ABG TCO2 19.7 MMOL/L (23-27)
[2018-05-11 07:07] LABS: Basophils % 0.3 % (0.0-0.8); Eosinophils # 0.1 10*3/uL (0.0-0.87); Eosinophils % 0.7 % (0.00-10.9); Hematocrit 28.8 VOL% (35.7-47.0); Hemoglobin 8.8 GM/DL (12.0-16.0); Immature Granulocytes % 0.4 %; Immature Granulocytes Absolute 0.03 #; Lymphocytes # 1.6 10*3/uL (1.4-4.0); Lymphocytes % 23.2 % (21.3-54.2); Mean Corpuscular HGB Conc 30.6 GM/DL (32-36); Mean Corpuscular Hemoglobin 30 PG (27-34); Mean Corpuscular Volume 97.3 FL (87-102); Mean Platelet Volume 11.7 FL (9.6-12.0); Monocytes # 0.5 10*3/uL (0.11-0.8); Monocytes % 6.7 % (1.7-12.7); Neutrophils # 4.8 10*3/uL (1.4-7.4); Neutrophils % 68.7 % (38.7-73.9); Platelet Count 138 T/CUMM (130-400); Red Blood Count 2.96 MC/CUMM (3.8-5.5); Red Cell Distribution Width 17.6 % (9.3-17.3)
[2018-05-11 07:35] LABS: Albumin 2.8 G/DL (3.4-5.0); Bilirubin,Total 0.8 MG/DL (0.2-1.0); Calcium 8.6 MG/DL (8.5-10.1); Osmolality,Calculated 281.3 MOS/KG (273-304); Potassium 3.3 MMOL/L (3.5-5.1); Total Protein 5.9 G/DL (6.4-8.3)
[2018-05-11 07:45] LABS: Apearance,Urine Slightly Hazy (Clear); Bilirubin,Urine Negative (Negative); Blood, Urine Negative (Negative); Glucose,Urine (UA) 50 mg/dL (Negative); Ketones,Urine Negative (Negative); Mucus,Urine Occasional /LPF (Occasional); Nitrite,Urine Negative (Negative); Protein,Urine Negative; RBC,Urine 3 /HPF (0-4); Squamous Epithelial Cell,Urine Occasional /HPF (0-10); Urine Color Amber (Yellow); Urine Specific Gravity 1.017 (1.001-1.035); WBC,Urine 56 /HPF (0-6)
[2018-05-11] MEDS ORDERED: PIPERACILLIN/TAZOBACTAM 3,375 MG in SODIUM CHLORIDE 0.9% 100 ML IV STA (07:56)
[2018-05-11] MEDS ORDERED: POTASSIUM CHLORIDE 20 MEQ TABLET PO ONE (08:19)
[2018-05-11] MEDS ORDERED: FUROSEMIDE 40 MG/4 ML VIAL IV ONE ×2 (08:19→19:00)
[2018-05-11] MEDS ORDERED: ALBUTEROL 2.5 MG/3 ML NEB RESP TX PRN (08:20)
[2018-05-11] MEDS ORDERED: ACETAMINOPHEN 325 MG TABLET PO PRN (08:26)
[2018-05-11] MEDS ORDERED: ONDANSETRON 4 MG/2 ML VIAL IV PRN (08:26)
[2018-05-11] MEDS ORDERED: guaiFENesin 200 MG/10 ML UDCUP PO PRN (08:37)
[2018-05-11] MEDS ORDERED: PROCHLORPERAZINE 10 MG TABLET PO PRN (08:37)
[2018-05-11] MEDS ORDERED: MAGNESIUM HYDROXIDE SUSP 30 ML UDCUP PO PRN (08:37)
[2018-05-11] MEDS ORDERED: NITROGLYCERIN SL 0.4 MG TABLET SL PRN (08:37)
[2018-05-11] MEDS ORDERED: GLUCAGON 1 MG VIAL IM PRN (08:37)
[2018-05-11] MEDS ORDERED: ONDANSETRON 4 MG TABLET PO PRN (08:37)
[2018-05-11] MEDS ORDERED: BISACODYL 5 MG TABLET PO PRN (08:37)
[2018-05-11] MEDS ORDERED: ALUMINUM/MAGNES/SIMETH MAX STR 30 ML UDCUP PO PRN (08:37)
[2018-05-11] MEDS ORDERED: ZALEPLON 5 MG CAPSULE PO PRN (08:37)
[2018-05-11] MEDS ORDERED: traMADol 50 MG TABLET PO PRN (08:37)
[2018-05-11] MEDS ORDERED: DEXTROSE 50% 25 GM/50 ML VIAL IV PRN (08:37)
[2018-05-11] MEDS ORDERED: PANTOPRAZOLE 40 MG TABLET PO SCH (09:00)
[2018-05-11] MEDS ORDERED: DEXTROSE 5% NACL 0.45% 1,000 ML IV SCH (09:00)
[2018-05-11] MEDS: ENOXAPARIN 40 MG/0.4 ML SYRINGE SUBCUT SCH (09:41)
[2018-05-11] MEDS ORDERED: PRAVASTATIN 40 MG TABLET PO SCH (10:00)
[2018-05-11] MEDS: METOPROLOL TARTRATE 50 MG TABLET PO SCH (11:18)
[2018-05-11] MEDS: INSULIN GLARGINE 100 UNIT/ML SUBCUT SCH (11:19)
[2018-05-11] MEDS: TRIAMCINOLONE 0.1% DENTAL PASTE 5 GM TUBE TOP SCH ×3 (11:19→21:45)
[2018-05-11] MEDS: acetaZOLAMIDE 250 MG TABLET PO SCH ×2 (11:19→20:43)
[2018-05-11] MEDS: FERROUS SULFATE 325 MG TABLET PO SCH (11:19)
[2018-05-11] MEDS: DULoxetine 30 MG CAPSULE PO SCH (11:19)
[2018-05-11] MEDS: FLUTICASONE 50 MCG NASAL SPRAY 16 GM BOTTLE BOTH NARES SCH (11:19)
[2018-05-11] MEDS: PANTOPRAZOLE 40 MG TABLET PO SCH (11:19)
[2018-05-11] MEDS: MONTELUKAST 10 MG TABLET PO SCH (11:20)
[2018-05-11] MEDS: POTASSIUM CHLORIDE 8 MEQ CAPSULE PO SCH ×2 (11:20→20:44)
[2018-05-11] MEDS: CALCIUM (CARBONATE)/VITAMIN D 500 MG-200 UNIT TABLET PO SCH (11:20)
[2018-05-11] MEDS: PREGABALIN 100 MG CAPSULE PO SCH ×2 (11:20→20:43)
[2018-05-11] MEDS: SUCRALFATE 1 GM/10 ML UDCUP PO SCH ×3 (11:21→20:44)
[2018-05-11] MEDS: INSULIN LISPRO 100 UNIT/ML SUBCUT SCH ×2 (12:09→18:31)
[2018-05-11] MEDS: VANCOMYCIN INJ 1,250 MG in SODIUM CHLORIDE 0.9% 250 ML IV SCH ×2 (12:09→22:32)
[2018-05-11] MEDS: DESITIN 4OZ/NYSTATIN 15 GRAM MIXTURE PASTE TOP SCH ×2 (12:09→21:45)
[2018-05-11] MEDS: ALBUTEROL/IPRATROPIUM 3 ML NEB RESP TX SCH ×2 (14:19→20:20)
[2018-05-11] MEDS: PIPERACILLIN/TAZOBACTAM 3,375 MG in SODIUM CHLORIDE 0.9% 100 ML IV SCH ×2 (14:50→22:25)
[2018-05-11 15:25] LABS: ABG Base Excess 0.2 MMOL/L (-2.5-2.5); ABG HCO3 24.6 MMOL/L (20-26); ABG Oxygen Saturation 97.7 % (95-100); ABG PCO2 41.1 MM HG (35-48); ABG PH 7.394 (7.35-7.45); ABG PO2 96.4 MM HG (80-95); ABG TCO2 22.9 MMOL/L (23-27); Allen Test Positive; Pt O2 Delivery Device Other
[2018-05-11] MEDS ORDERED: POLYETHYLENE GLYCOL POWDER 17 GM PACK PO PRN (17:54)
[2018-05-11] MEDS: ASPIRIN EC 81 MG TABLET PO SCH (18:31)
[2018-05-11] MEDS: FENOFIBRATE 145 MG TABLET PO SCH (20:43)
[2018-05-11] MEDS: ALPRAZolam 0.5 MG TABLET PO PRN (20:44)
[2018-05-12] MEDS: ALBUTEROL/IPRATROPIUM 3 ML NEB RESP TX SCH ×4 (00:39→19:24)
[2018-05-12] MEDS: INSULIN LISPRO 100 UNIT/ML SUBCUT SCH ×5 (01:00→23:39)
[2018-05-12 03:47] LABS: Basophils % 0.1 % (0.0-0.8); Eosinophils # 0.1 10*3/uL (0.0-0.87); Eosinophils % 0.9 % (0.00-10.9); Hematocrit 31.1 VOL% (35.7-47.0); Hemoglobin 9.6 GM/DL (12.0-16.0); Immature Granulocytes % 0.6 %; Immature Granulocytes Absolute 0.04 #; Lymphocytes # 1.5 10*3/uL (1.4-4.0); Lymphocytes % 21.1 % (21.3-54.2); Mean Corpuscular HGB Conc 30.9 GM/DL (32-36); Mean Corpuscular Hemoglobin 29 PG (27-34); Mean Corpuscular Volume 94.8 FL (87-102); Mean Platelet Volume 12.3 FL (9.6-12.0); Monocytes # 0.5 10*3/uL (0.11-0.8); Monocytes % 6.6 % (1.7-12.7); Neutrophils % 70.7 % (38.7-73.9); Platelet Count 131 T/CUMM (130-400); Red Blood Count 3.28 MC/CUMM (3.8-5.5); Red Cell Distribution Width 16.9 % (9.3-17.3)
[2018-05-12 04:09] LABS: Hypochromasia 1+; Platelet Estimate Adequate
[2018-05-12 04:09] LABS: ABG Base Excess 0.2 MMOL/L (-2.5-2.5); ABG Oxygen Saturation 97.1 % (95-100); ABG PCO2 36.1 MM HG (35-48); ABG PH 7.441 (7.35-7.45); ABG PO2 99.7 MM HG (80-95); ABG TCO2 25.1 MMOL/L (23-27); Allen Test Positive; Pt O2 Delivery Device Other
[2018-05-12 05:17] LABS: Calcium 8.5 MG/DL (8.5-10.1); Osmolality,Calculated 279.4 MOS/KG (273-304); Potassium 3.5 MMOL/L (3.5-5.1)
[2018-05-12] MEDS: PIPERACILLIN/TAZOBACTAM 3,375 MG in SODIUM CHLORIDE 0.9% 100 ML IV SCH ×3 (06:02→23:06)
[2018-05-12] MEDS: SUCRALFATE 1 GM/10 ML UDCUP PO SCH ×4 (06:30→21:37)
[2018-05-12] MEDS: TRIAMCINOLONE 0.1% DENTAL PASTE 5 GM TUBE TOP SCH ×3 (08:38→21:49)
[2018-05-12] MEDS: FLUTICASONE 50 MCG NASAL SPRAY 16 GM BOTTLE BOTH NARES SCH (08:38)
[2018-05-12] MEDS: INSULIN GLARGINE 100 UNIT/ML SUBCUT SCH ×2 (08:39→12:25)
[2018-05-12] MEDS: DESITIN 4OZ/NYSTATIN 15 GRAM MIXTURE PASTE TOP SCH ×2 (08:39→21:40)
[2018-05-12] MEDS: glipiZIDE 5 MG TABLET PO SCH (09:16)
[2018-05-12] MEDS: ENOXAPARIN 40 MG/0.4 ML SYRINGE SUBCUT SCH (09:16)
[2018-05-12] MEDS: CALCIUM (CARBONATE)/VITAMIN D 500 MG-200 UNIT TABLET PO SCH (09:17)
[2018-05-12] MEDS: PREGABALIN 100 MG CAPSULE PO SCH ×2 (09:17→21:36)
[2018-05-12] MEDS: POTASSIUM CHLORIDE 8 MEQ CAPSULE PO SCH ×2 (09:17→21:37)
[2018-05-12] MEDS: SIMVASTATIN 20 MG TABLET PO SCH (09:17)
[2018-05-12] MEDS: METOPROLOL TARTRATE 50 MG TABLET PO SCH (09:17)
[2018-05-12] MEDS: PANTOPRAZOLE 40 MG TABLET PO SCH (09:17)
[2018-05-12] MEDS: MONTELUKAST 10 MG TABLET PO SCH (09:17)
[2018-05-12] MEDS: DULoxetine 30 MG CAPSULE PO SCH (09:17)
[2018-05-12] MEDS: acetaZOLAMIDE 250 MG TABLET PO SCH ×2 (09:17→21:37)
[2018-05-12] MEDS ORDERED: AMINOPHYLLINE 250 MG in SODIUM CHLORIDE 0.9% 100 ML IV ONE (10:30)
[2018-05-12] MEDS: VANCOMYCIN INJ 1,250 MG in SODIUM CHLORIDE 0.9% 250 ML IV SCH ×2 (10:48→23:06)
[2018-05-12] MEDS ORDERED: POLYETHYLENE GLYCOL POWDER 17 GM PACK PO ONE (12:12)
[2018-05-12] MEDS ORDERED: methylPREDNISolone SOD SUC 125 MG/2 ML VIAL IV ONE (13:07)
[2018-05-12] MEDS: ALPRAZolam 0.5 MG TABLET PO PRN (15:14)
[2018-05-12] MEDS: AMINOPHYLLINE 500 MG in SODIUM CHLORIDE 0.9% 480 ML IV SCH (15:15)
[2018-05-12 16:27] LABS: ABG Base Excess -2.7 MMOL/L (-2.5-2.5); ABG HCO3 22.2 MMOL/L (20-26); ABG Oxygen Saturation 99.2 % (95-100); ABG PCO2 37.3 MM HG (35-48); ABG PH 7.379 (7.35-7.45); ABG TCO2 20.1 MMOL/L (23-27)
[2018-05-12] MEDS: ASPIRIN EC 81 MG TABLET PO SCH (18:07)
[2018-05-12] MEDS: methylPREDNISolone SOD SUC 40 MG/1 ML VIAL IV SCH (21:37)
[2018-05-12] MEDS: FENOFIBRATE 145 MG TABLET PO SCH (21:37)
[2018-05-13] MEDS: ALBUTEROL/IPRATROPIUM 3 ML NEB RESP TX SCH ×4 (01:40→19:28)
[2018-05-13 04:40] LABS: Calcium 9.1 MG/DL (8.5-10.1); Osmolality,Calculated 292.5 MOS/KG (273-304); Potassium 3.3 MMOL/L (3.5-5.1)
[2018-05-13] MEDS: methylPREDNISolone SOD SUC 40 MG/1 ML VIAL IV SCH ×3 (06:14→21:16)
[2018-05-13] MEDS: INSULIN LISPRO 100 UNIT/ML SUBCUT SCH ×3 (06:14→18:00)
[2018-05-13] MEDS: PIPERACILLIN/TAZOBACTAM 3,375 MG in SODIUM CHLORIDE 0.9% 100 ML IV SCH ×3 (06:15→23:55)
[2018-05-13] MEDS: SUCRALFATE 1 GM/10 ML UDCUP PO SCH ×4 (06:31→21:16)
[2018-05-13] MEDS ORDERED: POTASSIUM CHLORIDE 20 MEQ TABLET PO ONE (08:38)
[2018-05-13] MEDS: VANCOMYCIN INJ 1,000 MG in SODIUM CHLORIDE 0.9% 250 ML IV SCH ×2 (09:09→20:55)
[2018-05-13] MEDS: INSULIN GLARGINE 100 UNIT/ML SUBCUT SCH (09:09)
[2018-05-13] MEDS: FERROUS SULFATE 325 MG TABLET PO SCH (09:10)
[2018-05-13] MEDS: SIMVASTATIN 20 MG TABLET PO SCH (09:10)
[2018-05-13] MEDS: ENOXAPARIN 40 MG/0.4 ML SYRINGE SUBCUT SCH (09:10)
[2018-05-13] MEDS: POTASSIUM CHLORIDE 8 MEQ CAPSULE PO SCH ×2 (09:11→21:16)
[2018-05-13] MEDS: PREGABALIN 100 MG CAPSULE PO SCH ×2 (09:11→21:16)
[2018-05-13] MEDS: acetaZOLAMIDE 250 MG TABLET PO SCH ×2 (09:11→21:16)
[2018-05-13] MEDS: CALCIUM (CARBONATE)/VITAMIN D 500 MG-200 UNIT TABLET PO SCH (09:11)
[2018-05-13] MEDS: DULoxetine 30 MG CAPSULE PO SCH (09:11)
[2018-05-13] MEDS: glipiZIDE 5 MG TABLET PO SCH (09:11)
[2018-05-13] MEDS: METOPROLOL TARTRATE 50 MG TABLET PO SCH (09:11)
[2018-05-13] MEDS: PANTOPRAZOLE 40 MG TABLET PO SCH (09:11)
[2018-05-13] MEDS: MONTELUKAST 10 MG TABLET PO SCH (09:11)
[2018-05-13] MEDS: DESITIN 4OZ/NYSTATIN 15 GRAM MIXTURE PASTE TOP SCH ×2 (09:12→21:16)
[2018-05-13] MEDS: TRIAMCINOLONE 0.1% DENTAL PASTE 5 GM TUBE TOP SCH ×3 (09:12→21:16)
[2018-05-13] MEDS: FLUTICASONE 50 MCG NASAL SPRAY 16 GM BOTTLE BOTH NARES SCH (09:13)
[2018-05-13] MEDS: FLUCONAZOLE 200 MG TABLET PO SCH (12:01)
[2018-05-13] MEDS: AMINOPHYLLINE 500 MG in SODIUM CHLORIDE 0.9% 480 ML IV SCH (15:13)
[2018-05-13] MEDS: ASPIRIN EC 81 MG TABLET PO SCH (18:00)
[2018-05-13] MEDS: THEOPHYLLINE ER (24 HR) 200 MG CAPSULE PO SCH (21:16)
[2018-05-13] MEDS: FENOFIBRATE 145 MG TABLET PO SCH (21:17)
[2018-05-14] MEDS: INSULIN LISPRO 100 UNIT/ML SUBCUT SCH ×4 (00:30→19:34)
[2018-05-14] MEDS: ALBUTEROL/IPRATROPIUM 3 ML NEB RESP TX SCH ×4 (01:56→21:03)
[2018-05-14 04:18] LABS: Hematocrit 28.3 VOL% (35.7-47.0); Hemoglobin 8.5 GM/DL (12.0-16.0); Immature Granulocytes % 0.8 %; Immature Granulocytes Absolute 0.05 #; Lymphocytes # 0.3 10*3/uL (1.4-4.0); Mean Corpuscular Hemoglobin 29 PG (27-34); Mean Corpuscular Volume 97.9 FL (87-102); Monocytes # 0.3 10*3/uL (0.11-0.8); Monocytes % 5.3 % (1.7-12.7); Neutrophils # 5.4 10*3/uL (1.4-7.4); Neutrophils % 88.9 % (38.7-73.9); Platelet Count 155 T/CUMM (130-400); Red Blood Count 2.89 MC/CUMM (3.8-5.5); Red Cell Distribution Width 16.7 % (9.3-17.3); White Blood Count 6.1 T/CUMM (4-12)
[2018-05-14 04:37] LABS: Albumin 2.5 G/DL (3.4-5.0); Bilirubin,Total 0.4 MG/DL (0.2-1.0); Calcium 9.4 MG/DL (8.5-10.1); Potassium 3.6 MMOL/L (3.5-5.1); Total Protein 6.9 G/DL (6.4-8.3)
[2018-05-14] MEDS: PIPERACILLIN/TAZOBACTAM 3,375 MG in SODIUM CHLORIDE 0.9% 100 ML IV SCH ×2 (06:20→15:05)
[2018-05-14] MEDS: methylPREDNISolone SOD SUC 40 MG/1 ML VIAL IV SCH ×2 (06:21→20:54)
[2018-05-14] MEDS: SUCRALFATE 1 GM/10 ML UDCUP PO SCH ×4 (08:11→21:10)
[2018-05-14] MEDS: POTASSIUM CHLORIDE 8 MEQ CAPSULE PO SCH ×2 (08:11→21:11)
[2018-05-14] MEDS: CALCIUM (CARBONATE)/VITAMIN D 500 MG-200 UNIT TABLET PO SCH (08:11)
[2018-05-14] MEDS: ENOXAPARIN 40 MG/0.4 ML SYRINGE SUBCUT SCH (08:11)
[2018-05-14] MEDS: MONTELUKAST 10 MG TABLET PO SCH (08:11)
[2018-05-14] MEDS: FLUCONAZOLE 200 MG TABLET PO SCH (08:11)
[2018-05-14] MEDS: INSULIN GLARGINE 100 UNIT/ML SUBCUT SCH (08:11)
[2018-05-14] MEDS: SIMVASTATIN 20 MG TABLET PO SCH (08:12)
[2018-05-14] MEDS: glipiZIDE 5 MG TABLET PO SCH (08:12)
[2018-05-14] MEDS: PANTOPRAZOLE 40 MG TABLET PO SCH (08:12)
[2018-05-14] MEDS: DULoxetine 30 MG CAPSULE PO SCH (08:12)
[2018-05-14] MEDS: FLUTICASONE 50 MCG NASAL SPRAY 16 GM BOTTLE BOTH NARES SCH (08:12)
[2018-05-14] MEDS: PREGABALIN 100 MG CAPSULE PO SCH ×2 (08:12→21:11)
[2018-05-14] MEDS: METOPROLOL TARTRATE 50 MG TABLET PO SCH (08:12)
[2018-05-14] MEDS: acetaZOLAMIDE 250 MG TABLET PO SCH ×2 (08:12→21:11)
[2018-05-14] MEDS: DESITIN 4OZ/NYSTATIN 15 GRAM MIXTURE PASTE TOP SCH ×2 (08:13→23:52)
[2018-05-14] MEDS: TRIAMCINOLONE 0.1% DENTAL PASTE 5 GM TUBE TOP SCH ×3 (08:13→23:52)
[2018-05-14] MEDS ORDERED: methylPREDNISolone SOD SUC 40 MG/1 ML VIAL IV SCH (18:00)
[2018-05-14] MEDS: ASPIRIN CHEW 81 MG TABLET PO SCH (21:10)
[2018-05-14] MEDS: FENOFIBRATE 145 MG TABLET PO SCH (21:11)
[2018-05-14] MEDS: THEOPHYLLINE ER (24 HR) 200 MG CAPSULE PO SCH (21:11)
[2018-05-15] MEDS: PIPERACILLIN/TAZOBACTAM 3,375 MG in SODIUM CHLORIDE 0.9% 100 ML IV SCH ×3 (00:08→18:08)
[2018-05-15] MEDS: INSULIN LISPRO 100 UNIT/ML SUBCUT SCH ×4 (00:12→18:11)
[2018-05-15] MEDS: ALBUTEROL/IPRATROPIUM 3 ML NEB RESP TX SCH ×4 (00:44→19:40)
[2018-05-15 04:50] LABS: Albumin 2.7 G/DL (3.4-5.0); Bilirubin,Total 0.4 MG/DL (0.2-1.0); Osmolality,Calculated 307.6 MOS/KG (273-304)
[2018-05-15] MEDS: SUCRALFATE 1 GM/10 ML UDCUP PO SCH ×5 (09:00→20:34)
[2018-05-15] MEDS: ENOXAPARIN 40 MG/0.4 ML SYRINGE SUBCUT SCH (09:00)
[2018-05-15] MEDS: methylPREDNISolone SOD SUC 40 MG/1 ML VIAL IV SCH (09:00)
[2018-05-15] MEDS: POTASSIUM CHLORIDE 8 MEQ CAPSULE PO SCH ×3 (09:03→20:33)
[2018-05-15] MEDS: PANTOPRAZOLE 40 MG TABLET PO SCH ×2 (09:04→09:30)
[2018-05-15] MEDS: METOPROLOL TARTRATE 50 MG TABLET PO SCH ×2 (09:04→09:29)
[2018-05-15] MEDS: FLUCONAZOLE 200 MG TABLET PO SCH ×2 (09:04→09:29)
[2018-05-15] MEDS: CALCIUM (CARBONATE)/VITAMIN D 500 MG-200 UNIT TABLET PO SCH ×2 (09:04→09:29)
[2018-05-15] MEDS: DULoxetine 30 MG CAPSULE PO SCH ×2 (09:04→09:29)
[2018-05-15] MEDS: acetaZOLAMIDE 250 MG TABLET PO SCH ×3 (09:04→20:28)
[2018-05-15] MEDS: FERROUS SULFATE 325 MG TABLET PO SCH ×2 (09:05→09:29)
[2018-05-15] MEDS: glipiZIDE 5 MG TABLET PO SCH ×2 (09:05→09:28)
[2018-05-15] MEDS: MONTELUKAST 10 MG TABLET PO SCH ×2 (09:05→09:30)
[2018-05-15] MEDS: SIMVASTATIN 20 MG TABLET PO SCH ×2 (09:05→09:30)
[2018-05-15] MEDS: PREGABALIN 100 MG CAPSULE PO SCH ×3 (09:05→20:28)
[2018-05-15] MEDS: ASPIRIN CHEW 81 MG TABLET PO SCH ×2 (09:05→09:29)
[2018-05-15] MEDS: DESITIN 4OZ/NYSTATIN 15 GRAM MIXTURE PASTE TOP SCH ×2 (09:06→20:33)
[2018-05-15] MEDS: FLUTICASONE 50 MCG NASAL SPRAY 16 GM BOTTLE BOTH NARES SCH (09:06)
[2018-05-15] MEDS: TRIAMCINOLONE 0.1% DENTAL PASTE 5 GM TUBE TOP SCH ×3 (09:06→20:33)
[2018-05-15] MEDS: INSULIN GLARGINE 100 UNIT/ML SUBCUT SCH (09:06)
[2018-05-15] MEDS ORDERED: SODIUM CHLORIDE 0.9% 1,000 ML IV PRN (09:16)
[2018-05-15] MEDS: methylPREDNISolone SOD SUC 125 MG/2 ML VIAL IV SCH ×2 (09:30→18:11)
[2018-05-15] MEDS ORDERED: FLUCONAZOLE 200 MG TABLET PO ONE (14:30)
[2018-05-15] MEDS: THEOPHYLLINE ER (24 HR) 200 MG CAPSULE PO SCH (20:32)
[2018-05-15] MEDS: FENOFIBRATE 145 MG TABLET PO SCH (20:33)
[2018-05-16] MEDS: INSULIN LISPRO 100 UNIT/ML SUBCUT SCH ×5 (00:25→20:30)
[2018-05-16] MEDS: ALBUTEROL/IPRATROPIUM 3 ML NEB RESP TX SCH ×4 (01:38→19:07)
[2018-05-16] MEDS: PIPERACILLIN/TAZOBACTAM 3,375 MG in SODIUM CHLORIDE 0.9% 100 ML IV SCH ×3 (02:17→17:05)
[2018-05-16] MEDS: methylPREDNISolone SOD SUC 125 MG/2 ML VIAL IV SCH ×3 (02:17→17:02)
[2018-05-16 06:11] LABS: Hematocrit 38.1 VOL% (35.7-47.0); Hemoglobin 11.5 GM/DL (12.0-16.0); Immature Granulocytes % 0.8 %; Immature Granulocytes Absolute 0.04 #; Lymphocytes # 0.2 10*3/uL (1.4-4.0); Lymphocytes % 4.7 % (21.3-54.2); Mean Corpuscular HGB Conc 30.2 GM/DL (32-36); Mean Corpuscular Hemoglobin 29 PG (27-34); Mean Corpuscular Volume 96.7 FL (87-102); Mean Platelet Volume 11.9 FL (9.6-12.0); Monocytes # 0.3 10*3/uL (0.11-0.8); Monocytes % 5.1 % (1.7-12.7); Neutrophils # 4.5 10*3/uL (1.4-7.4); Neutrophils % 89.4 % (38.7-73.9); Platelet Count 139 T/CUMM (130-400); Red Blood Count 3.94 MC/CUMM (3.8-5.5); Red Cell Distribution Width 16.7 % (9.3-17.3); White Blood Count 5.1 T/CUMM (4-12)
[2018-05-16 06:26] LABS: Albumin 2.8 G/DL (3.4-5.0); Bilirubin,Total 1.1 MG/DL (0.2-1.0); Calcium 9.9 MG/DL (8.5-10.1); Osmolality,Calculated 306.6 MOS/KG (273-304); Potassium 3.5 MMOL/L (3.5-5.1); Total Protein 6.8 G/DL (6.4-8.3)
[2018-05-16 07:15] LABS: Band Neutrophils 5 % (0-10); Lymphocytes 3 % (20-55); Nucleated Red Blood Cells 1 (0-5); Segmented Neutrophils 90 % (50-85); Total Cells Counted 100
[2018-05-16 07:16] LABS: Anisocytosis 1+; Platelet Estimate Adequate
[2018-05-16 09:03] LABS: ABG Base Excess -2.8 MMOL/L (-2.5-2.5); ABG HCO3 22.1 MMOL/L (20-26); ABG Oxygen Saturation 98.4 % (95-100); ABG PCO2 49.1 MM HG (35-48); ABG PH 7.299 (7.35-7.45); ABG TCO2 21.7 MMOL/L (23-27); Allen Test Positive; Pt O2 Delivery Device Other
[2018-05-16] MEDS: MONTELUKAST 10 MG TABLET PO SCH (09:19)
[2018-05-16] MEDS: DULoxetine 30 MG CAPSULE PO SCH (09:23)
[2018-05-16] MEDS: ASPIRIN CHEW 81 MG TABLET PO SCH (09:26)
[2018-05-16] MEDS: SIMVASTATIN 20 MG TABLET PO SCH (09:26)
[2018-05-16] MEDS: glipiZIDE 5 MG TABLET PO SCH (09:27)
[2018-05-16] MEDS: CALCIUM (CARBONATE)/VITAMIN D 500 MG-200 UNIT TABLET PO SCH (09:34)
[2018-05-16] MEDS: METOPROLOL TARTRATE 50 MG TABLET PO SCH (09:34)
[2018-05-16] MEDS ORDERED: DEXTROSE 50% 25 GM/50 ML VIAL IV PRN (09:34)
[2018-05-16] MEDS ORDERED: GLUCAGON 1 MG VIAL IM PRN (09:34)
[2018-05-16] MEDS: POTASSIUM CHLORIDE 8 MEQ CAPSULE PO SCH ×2 (09:34→20:14)
[2018-05-16] MEDS: ENOXAPARIN 40 MG/0.4 ML SYRINGE SUBCUT SCH (09:35)
[2018-05-16] MEDS: PANTOPRAZOLE 40 MG TABLET PO SCH (09:35)
[2018-05-16] MEDS: INSULIN GLARGINE 100 UNIT/ML SUBCUT SCH (09:36)
[2018-05-16] MEDS: SUCRALFATE 1 GM/10 ML UDCUP PO SCH ×4 (09:39→20:16)
[2018-05-16] MEDS: TRIAMCINOLONE 0.1% DENTAL PASTE 5 GM TUBE TOP SCH ×3 (09:40→20:14)
[2018-05-16] MEDS: FLUCONAZOLE 200 MG TABLET PO SCH (09:40)
[2018-05-16] MEDS: FLUTICASONE 50 MCG NASAL SPRAY 16 GM BOTTLE BOTH NARES SCH (09:40)
[2018-05-16] MEDS: DESITIN 4OZ/NYSTATIN 15 GRAM MIXTURE PASTE TOP SCH ×2 (11:20→20:14)
[2018-05-16] MEDS: THEOPHYLLINE ER (24 HR) 200 MG CAPSULE PO SCH (20:13)
[2018-05-16] MEDS: FENOFIBRATE 145 MG TABLET PO SCH (20:14)
[2018-05-16] MEDS: ALPRAZolam 0.5 MG TABLET PO PRN (23:52)
[2018-05-17] MEDS: ALBUTEROL/IPRATROPIUM 3 ML NEB RESP TX SCH ×4 (00:01→19:30)
[2018-05-17] MEDS: PIPERACILLIN/TAZOBACTAM 3,375 MG in SODIUM CHLORIDE 0.9% 100 ML IV SCH ×3 (01:51→17:09)
[2018-05-17] MEDS: methylPREDNISolone SOD SUC 125 MG/2 ML VIAL IV SCH ×3 (01:52→17:06)
[2018-05-17 05:32] LABS: Basophils % 0.2 % (0.0-0.8); Hematocrit 36.3 VOL% (35.7-47.0); Hemoglobin 11.1 GM/DL (12.0-16.0); Immature Granulocytes % 1.1 %; Immature Granulocytes Absolute 0.06 #; Lymphocytes # 0.3 10*3/uL (1.4-4.0); Lymphocytes % 5.1 % (21.3-54.2); Mean Corpuscular HGB Conc 30.6 GM/DL (32-36); Mean Corpuscular Hemoglobin 29 PG (27-34); Mean Corpuscular Volume 95.5 FL (87-102); Mean Platelet Volume 11.9 FL (9.6-12.0); Monocytes # 0.3 10*3/uL (0.11-0.8); Monocytes % 5.1 % (1.7-12.7); Neutrophils % 88.5 % (38.7-73.9); Platelet Count 142 T/CUMM (130-400); Red Cell Distribution Width 16.1 % (9.3-17.3); White Blood Count 5.7 T/CUMM (4-12)
[2018-05-17 06:11] LABS: Albumin 2.8 G/DL (3.4-5.0); Bilirubin,Total 0.6 MG/DL (0.2-1.0); Calcium 9.8 MG/DL (8.5-10.1); Osmolality,Calculated 303.6 MOS/KG (273-304); Potassium 3.3 MMOL/L (3.5-5.1); Total Protein 6.7 G/DL (6.4-8.3)
[2018-05-17] MEDS: FERROUS SULFATE 325 MG TABLET PO SCH (10:28)
[2018-05-17] MEDS: MONTELUKAST 10 MG TABLET PO SCH (10:29)
[2018-05-17] MEDS: POTASSIUM CHLORIDE 8 MEQ CAPSULE PO SCH ×2 (10:29→20:29)
[2018-05-17] MEDS: FLUCONAZOLE 200 MG TABLET PO SCH (10:33)
[2018-05-17] MEDS: ASPIRIN CHEW 81 MG TABLET PO SCH (10:33)
[2018-05-17] MEDS: METOPROLOL TARTRATE 50 MG TABLET PO SCH (10:33)
[2018-05-17] MEDS: CALCIUM (CARBONATE)/VITAMIN D 500 MG-200 UNIT TABLET PO SCH (10:34)
[2018-05-17] MEDS: PANTOPRAZOLE 40 MG TABLET PO SCH (10:34)
[2018-05-17] MEDS: DULoxetine 30 MG CAPSULE PO SCH (10:34)
[2018-05-17] MEDS: SIMVASTATIN 20 MG TABLET PO SCH (10:35)
[2018-05-17] MEDS: FLUTICASONE 50 MCG NASAL SPRAY 16 GM BOTTLE BOTH NARES SCH (10:37)
[2018-05-17] MEDS: INSULIN GLARGINE 100 UNIT/ML SUBCUT SCH (10:37)
[2018-05-17] MEDS: SUCRALFATE 1 GM/10 ML UDCUP PO SCH ×4 (10:37→20:29)
[2018-05-17] MEDS: TRIAMCINOLONE 0.1% DENTAL PASTE 5 GM TUBE TOP SCH ×3 (10:37→20:30)
[2018-05-17] MEDS: DESITIN 4OZ/NYSTATIN 15 GRAM MIXTURE PASTE TOP SCH ×2 (10:42→20:30)
[2018-05-17] MEDS: oxyCODONE/ACETAMINOPHEN 5-325 MG TABLET PO PRN (10:50)
[2018-05-17] MEDS: INSULIN LISPRO 100 UNIT/ML SUBCUT SCH ×3 (13:05→20:28)
[2018-05-17] MEDS: DEXT 5% NACL 0.45% KCL 40 MEQ 40 MEQ/1,000 ML BAG IV SCH (14:41)
[2018-05-17] MEDS: ENOXAPARIN 40 MG/0.4 ML SYRINGE SUBCUT SCH (17:10)
[2018-05-17] MEDS: THEOPHYLLINE ER (24 HR) 200 MG CAPSULE PO SCH (20:29)
[2018-05-17] MEDS: FENOFIBRATE 145 MG TABLET PO SCH (20:29)
[2018-05-18] MEDS: ALBUTEROL/IPRATROPIUM 3 ML NEB RESP TX SCH ×4 (00:15→19:22)
[2018-05-18] MEDS: oxyCODONE/ACETAMINOPHEN 5-325 MG TABLET PO PRN (01:19)
[2018-05-18] MEDS: methylPREDNISolone SOD SUC 125 MG/2 ML VIAL IV SCH ×3 (01:53→17:08)
[2018-05-18] MEDS: PIPERACILLIN/TAZOBACTAM 3,375 MG in SODIUM CHLORIDE 0.9% 100 ML IV SCH ×3 (01:56→18:15)
[2018-05-18 04:35] LABS: Hematocrit 36.6 VOL% (35.7-47.0); Hemoglobin 11.2 GM/DL (12.0-16.0); Immature Granulocytes % 0.7 %; Immature Granulocytes Absolute 0.04 #; Lymphocytes # 0.3 10*3/uL (1.4-4.0); Lymphocytes % 5.2 % (21.3-54.2); Mean Corpuscular HGB Conc 30.6 GM/DL (32-36); Mean Corpuscular Hemoglobin 29 PG (27-34); Mean Corpuscular Volume 94.8 FL (87-102); Mean Platelet Volume 11.4 FL (9.6-12.0); Monocytes # 0.3 10*3/uL (0.11-0.8); Monocytes % 4.8 % (1.7-12.7); Neutrophils % 89.3 % (38.7-73.9); Platelet Count 133 T/CUMM (130-400); Red Blood Count 3.86 MC/CUMM (3.8-5.5); Red Cell Distribution Width 15.5 % (9.3-17.3); White Blood Count 5.6 T/CUMM (4-12)
[2018-05-18 04:59] LABS: Calcium 9.5 MG/DL (8.5-10.1); Osmolality,Calculated 306.6 MOS/KG (273-304); Potassium 3.7 MMOL/L (3.5-5.1)
[2018-05-18 05:01] LABS: Albumin 2.8 G/DL (3.4-5.0); Bilirubin,Total 1.1 MG/DL (0.2-1.0); Calcium 9.6 MG/DL (8.5-10.1); Osmolality,Calculated 307.6 MOS/KG (273-304); Potassium 3.7 MMOL/L (3.5-5.1); Total Protein 6.5 G/DL (6.4-8.3)
[2018-05-18] MEDS: FLUCONAZOLE 200 MG TABLET PO SCH (08:50)
[2018-05-18] MEDS: CALCIUM (CARBONATE)/VITAMIN D 500 MG-200 UNIT TABLET PO SCH (08:50)
[2018-05-18] MEDS: DULoxetine 30 MG CAPSULE PO SCH (08:51)
[2018-05-18] MEDS: POTASSIUM CHLORIDE 8 MEQ CAPSULE PO SCH ×2 (08:51→20:52)
[2018-05-18] MEDS: MONTELUKAST 10 MG TABLET PO SCH (08:51)
[2018-05-18] MEDS: ASPIRIN CHEW 81 MG TABLET PO SCH (08:51)
[2018-05-18] MEDS: ALPRAZolam 0.5 MG TABLET PO PRN ×2 (08:51→20:52)
[2018-05-18] MEDS: METOPROLOL TARTRATE 50 MG TABLET PO SCH (08:51)
[2018-05-18] MEDS: PANTOPRAZOLE 40 MG TABLET PO SCH (08:51)
[2018-05-18] MEDS: INSULIN GLARGINE 100 UNIT/ML SUBCUT SCH (08:56)
[2018-05-18] MEDS: DESITIN 4OZ/NYSTATIN 15 GRAM MIXTURE PASTE TOP SCH ×2 (08:57→20:56)
[2018-05-18] MEDS: FLUTICASONE 50 MCG NASAL SPRAY 16 GM BOTTLE BOTH NARES SCH ×2 (08:57→09:29)
[2018-05-18] MEDS: ENOXAPARIN 40 MG/0.4 ML SYRINGE SUBCUT SCH (08:57)
[2018-05-18] MEDS: SUCRALFATE 1 GM/10 ML UDCUP PO SCH ×4 (09:02→21:25)
[2018-05-18] MEDS: INSULIN LISPRO 100 UNIT/ML SUBCUT SCH ×4 (09:03→21:04)
[2018-05-18] MEDS: PREGABALIN 100 MG CAPSULE PO SCH ×2 (09:05→20:54)
[2018-05-18] MEDS: TRIAMCINOLONE 0.1% DENTAL PASTE 5 GM TUBE TOP SCH ×3 (09:29→20:56)
[2018-05-18] MEDS: DEXT 5% NACL 0.45% KCL 40 MEQ 40 MEQ/1,000 ML BAG IV SCH (16:59)
[2018-05-18] MEDS: FENOFIBRATE 145 MG TABLET PO SCH (20:54)
[2018-05-18] MEDS: THEOPHYLLINE ER (24 HR) 200 MG CAPSULE PO SCH (20:54)
[2018-05-18] MEDS: hydrALAZINE 10 MG TABLET PO SCH (20:55)
[2018-05-19] MEDS: ALBUTEROL/IPRATROPIUM 3 ML NEB RESP TX SCH ×4 (00:03→19:01)
[2018-05-19] MEDS: PIPERACILLIN/TAZOBACTAM 3,375 MG in SODIUM CHLORIDE 0.9% 100 ML IV SCH (03:12)
[2018-05-19] MEDS: methylPREDNISolone SOD SUC 125 MG/2 ML VIAL IV SCH ×3 (03:12→16:50)
[2018-05-19] MEDS: DEXT 5% NACL 0.45% KCL 40 MEQ 40 MEQ/1,000 ML BAG IV SCH (03:13)
[2018-05-19 05:19] LABS: Basophils % 0.3 % (0.0-0.8); Hematocrit 36.6 VOL% (35.7-47.0); Hemoglobin 11.5 GM/DL (12.0-16.0); Immature Granulocytes % 0.9 %; Immature Granulocytes Absolute 0.07 #; Lymphocytes # 0.3 10*3/uL (1.4-4.0); Lymphocytes % 3.6 % (21.3-54.2); Mean Corpuscular HGB Conc 31.4 GM/DL (32-36); Mean Corpuscular Hemoglobin 30 PG (27-34); Mean Corpuscular Volume 93.8 FL (87-102); Mean Platelet Volume 12.1 FL (9.6-12.0); Monocytes # 0.4 10*3/uL (0.11-0.8); Monocytes % 5.1 % (1.7-12.7); Neutrophils # 7.1 10*3/uL (1.4-7.4); Neutrophils % 90.1 % (38.7-73.9); Platelet Count 142 T/CUMM (130-400); Red Cell Distribution Width 15.6 % (9.3-17.3); White Blood Count 7.8 T/CUMM (4-12)
[2018-05-19 06:01] LABS: Albumin 2.7 G/DL (3.4-5.0); Calcium 9.6 MG/DL (8.5-10.1); Hypochromasia 1+; Lymphocytes 3 % (20-55); Osmolality,Calculated 298.8 MOS/KG (273-304); Ovalocytes Slight; Platelet Estimate Adequate; Potassium 3.9 MMOL/L (3.5-5.1); Segmented Neutrophils 89 % (50-85); Total Cells Counted 100; Total Protein 6.4 G/DL (6.4-8.3)
[2018-05-19] MEDS: MONTELUKAST 10 MG TABLET PO SCH (08:49)
[2018-05-19] MEDS: POTASSIUM CHLORIDE 8 MEQ CAPSULE PO SCH ×2 (08:49→21:43)
[2018-05-19] MEDS: CALCIUM (CARBONATE)/VITAMIN D 500 MG-200 UNIT TABLET PO SCH (08:49)
[2018-05-19] MEDS: DULoxetine 30 MG CAPSULE PO SCH (08:49)
[2018-05-19] MEDS: PANTOPRAZOLE 40 MG TABLET PO SCH (08:50)
[2018-05-19] MEDS: METOPROLOL TARTRATE 50 MG TABLET PO SCH (08:50)
[2018-05-19] MEDS: FERROUS SULFATE 325 MG TABLET PO SCH (08:50)
[2018-05-19] MEDS: hydrALAZINE 10 MG TABLET PO SCH ×3 (08:50→21:43)
[2018-05-19] MEDS: PREGABALIN 100 MG CAPSULE PO SCH ×2 (08:50→21:43)
[2018-05-19] MEDS: FLUCONAZOLE 200 MG TABLET PO SCH (08:50)
[2018-05-19] MEDS: ASPIRIN CHEW 81 MG TABLET PO SCH (08:50)
[2018-05-19] MEDS: ENOXAPARIN 40 MG/0.4 ML SYRINGE SUBCUT SCH (08:51)
[2018-05-19] MEDS: SUCRALFATE 1 GM/10 ML UDCUP PO SCH ×4 (08:51→21:43)
[2018-05-19] MEDS: INSULIN LISPRO 100 UNIT/ML SUBCUT SCH ×4 (08:51→21:43)
[2018-05-19] MEDS: INSULIN GLARGINE 100 UNIT/ML SUBCUT SCH (08:51)
[2018-05-19] MEDS ORDERED: ETOPOSIDE 150 MG in SODIUM CHLORIDE 0.9% 500 ML IV SCH (09:00)
[2018-05-19] MEDS: FLUTICASONE 50 MCG NASAL SPRAY 16 GM BOTTLE BOTH NARES SCH (09:03)
[2018-05-19] MEDS: TRIAMCINOLONE 0.1% DENTAL PASTE 5 GM TUBE TOP SCH ×3 (09:03→21:44)
[2018-05-19] MEDS: DESITIN 4OZ/NYSTATIN 15 GRAM MIXTURE PASTE TOP SCH ×2 (09:04→21:44)
[2018-05-19] MEDS: DEXAMETHASONE 10 MG/1 ML VIAL IV SCH (10:57)
[2018-05-19] MEDS: diphenhydrAMINE 50 MG/1 ML VIAL IV SCH (11:00)
[2018-05-19] MEDS: GRANISETRON 1 MG/1 ML VIAL IV SCH (11:02)
[2018-05-19] MEDS: ETOPOSIDE 120 MG in SODIUM CHLORIDE 0.9% 500 ML IV SCH (11:38)
[2018-05-19] MEDS: LACTOBACILLUS RHAMNOSUS GG CAPSULE PO SCH ×2 (11:40→21:43)
[2018-05-19] MEDS: THEOPHYLLINE ER (24 HR) 200 MG CAPSULE PO SCH (21:43)
[2018-05-19] MEDS: FENOFIBRATE 145 MG TABLET PO SCH (21:43)
[2018-05-20] MEDS: methylPREDNISolone SOD SUC 125 MG/2 ML VIAL IV SCH ×3 (00:47→16:33)
[2018-05-20] MEDS: ALBUTEROL/IPRATROPIUM 3 ML NEB RESP TX SCH ×4 (01:29→19:44)
[2018-05-20 04:43] LABS: Basophils % 0.1 % (0.0-0.8); Hematocrit 37.1 VOL% (35.7-47.0); Hemoglobin 11.5 GM/DL (12.0-16.0); Immature Granulocytes % 0.8 %; Immature Granulocytes Absolute 0.07 #; Lymphocytes # 0.2 10*3/uL (1.4-4.0); Lymphocytes % 2.4 % (21.3-54.2); Mean Corpuscular Hemoglobin 29 PG (27-34); Mean Platelet Volume 12.2 FL (9.6-12.0); Monocytes # 0.3 10*3/uL (0.11-0.8); Monocytes % 3.8 % (1.7-12.7); Neutrophils # 7.8 10*3/uL (1.4-7.4); Neutrophils % 92.9 % (38.7-73.9); Platelet Count 144 T/CUMM (130-400); Red Blood Count 3.99 MC/CUMM (3.8-5.5); Red Cell Distribution Width 15.4 % (9.3-17.3); White Blood Count 8.4 T/CUMM (4-12)
[2018-05-20 04:49] LABS: Calcium 9.2 MG/DL (8.5-10.1); Osmolality,Calculated 294.4 MOS/KG (273-304); Potassium 4.4 MMOL/L (3.5-5.1)
[2018-05-20 05:05] LABS: Band Neutrophils 3 % (0-10); Lymphocytes 6 % (20-55); Platelet Estimate Adequate; Segmented Neutrophils 88 % (50-85); Total Cells Counted 100
[2018-05-20 05:06] LABS: Hypochromasia 1+; Ovalocytes Slight
[2018-05-20] MEDS: DEXT 5% NACL 0.45% KCL 40 MEQ 40 MEQ/1,000 ML BAG IV SCH (05:36)
[2018-05-20] MEDS ORDERED: CARBOplatin 500 MG in SODIUM CHLORIDE 0.9% 250 ML IV ONE (09:00)
[2018-05-20] MEDS ORDERED: ATEZOLIZUMAB 1,200 MG in SODIUM CHLORIDE 0.9% 250 ML IV ONE (10:00)
[2018-05-20] MEDS: MONTELUKAST 10 MG TABLET PO SCH (10:41)
[2018-05-20] MEDS: CALCIUM (CARBONATE)/VITAMIN D 500 MG-200 UNIT TABLET PO SCH (10:41)
[2018-05-20] MEDS: FLUCONAZOLE 200 MG TABLET PO SCH (10:41)
[2018-05-20] MEDS: PANTOPRAZOLE 40 MG TABLET PO SCH (10:42)
[2018-05-20] MEDS: ASPIRIN CHEW 81 MG TABLET PO SCH (10:42)
[2018-05-20] MEDS: METOPROLOL TARTRATE 50 MG TABLET PO SCH (10:42)
[2018-05-20] MEDS: DULoxetine 30 MG CAPSULE PO SCH (10:42)
[2018-05-20] MEDS: hydrALAZINE 10 MG TABLET PO SCH ×3 (10:43→21:56)
[2018-05-20] MEDS: ENOXAPARIN 40 MG/0.4 ML SYRINGE SUBCUT SCH (10:43)
[2018-05-20] MEDS: POTASSIUM CHLORIDE 8 MEQ CAPSULE PO SCH ×2 (10:43→21:55)
[2018-05-20] MEDS: PREGABALIN 100 MG CAPSULE PO SCH ×2 (10:43→21:55)
[2018-05-20] MEDS: LACTOBACILLUS RHAMNOSUS GG CAPSULE PO SCH ×2 (10:43→21:56)
[2018-05-20] MEDS: MUPIROCIN 2% OINT 22 GM TUBE TOP SCH ×2 (10:44→21:55)
[2018-05-20] MEDS: INSULIN LISPRO 100 UNIT/ML SUBCUT SCH ×4 (10:44→21:57)
[2018-05-20] MEDS: SUCRALFATE 1 GM/10 ML UDCUP PO SCH ×4 (10:44→21:56)
[2018-05-20] MEDS: diphenhydrAMINE 50 MG/1 ML VIAL IV SCH (10:45)
[2018-05-20] MEDS: GRANISETRON 1 MG/1 ML VIAL IV SCH (10:45)
[2018-05-20] MEDS: INSULIN GLARGINE 100 UNIT/ML SUBCUT SCH (10:46)
[2018-05-20] MEDS: TRIAMCINOLONE 0.1% DENTAL PASTE 5 GM TUBE TOP SCH ×3 (10:46→21:55)
[2018-05-20] MEDS: DEXAMETHASONE 10 MG/1 ML VIAL IV SCH (10:46)
[2018-05-20] MEDS: FLUTICASONE 50 MCG NASAL SPRAY 16 GM BOTTLE BOTH NARES SCH (10:46)
[2018-05-20] MEDS: DESITIN 4OZ/NYSTATIN 15 GRAM MIXTURE PASTE TOP SCH ×2 (10:47→21:54)
[2018-05-20] MEDS: ETOPOSIDE 120 MG in SODIUM CHLORIDE 0.9% 500 ML IV SCH (16:33)
[2018-05-20] MEDS: THEOPHYLLINE ER (24 HR) 200 MG CAPSULE PO SCH (21:56)
[2018-05-20] MEDS: FENOFIBRATE 145 MG TABLET PO SCH (21:56)
[2018-05-20] MEDS: oxyCODONE/ACETAMINOPHEN 5-325 MG TABLET PO PRN (21:59)
[2018-05-20] MEDS: ALPRAZolam 0.5 MG TABLET PO PRN (23:52)
[2018-05-21] MEDS: ALBUTEROL/IPRATROPIUM 3 ML NEB RESP TX SCH ×4 (00:17→17:40)
[2018-05-21] MEDS: methylPREDNISolone SOD SUC 125 MG/2 ML VIAL IV SCH ×3 (01:06→17:10)
[2018-05-21] MEDS: DEXT 5% NACL 0.45% KCL 40 MEQ 40 MEQ/1,000 ML BAG IV SCH ×2 (03:18→21:50)
[2018-05-21 06:02] LABS: Hematocrit 36.7 VOL% (35.7-47.0); Hemoglobin 11.2 GM/DL (12.0-16.0); Immature Granulocytes % 0.4 %; Immature Granulocytes Absolute 0.03 #; Lymphocytes # 0.2 10*3/uL (1.4-4.0); Lymphocytes % 2.8 % (21.3-54.2); Mean Corpuscular HGB Conc 30.5 GM/DL (32-36); Mean Corpuscular Hemoglobin 29 PG (27-34); Mean Corpuscular Volume 94.6 FL (87-102); Mean Platelet Volume 12.9 FL (9.6-12.0); Monocytes # 0.2 10*3/uL (0.11-0.8); Monocytes % 2.4 % (1.7-12.7); Neutrophils # 6.7 10*3/uL (1.4-7.4); Neutrophils % 94.4 % (38.7-73.9); Platelet Count 121 T/CUMM (130-400); Red Blood Count 3.88 MC/CUMM (3.8-5.5); Red Cell Distribution Width 15.3 % (9.3-17.3); White Blood Count 7.1 T/CUMM (4-12)
[2018-05-21 06:17] LABS: Calcium 9.4 MG/DL (8.5-10.1); Osmolality,Calculated 292.4 MOS/KG (273-304); Potassium 4.3 MMOL/L (3.5-5.1)
[2018-05-21 06:22] LABS: Lymphocytes 2 % (20-55); Segmented Neutrophils 97 % (50-85); Total Cells Counted 100
[2018-05-21 06:23] LABS: Hypochromasia 1+; Microcytosis Slight; Platelet Estimate Adequate
[2018-05-21 07:51] LABS: Albumin 2.7 G/DL (3.4-5.0); Bilirubin,Total 0.7 MG/DL (0.2-1.0); Calcium 9.4 MG/DL (8.5-10.1); Osmolality,Calculated 293.4 MOS/KG (273-304); Potassium 4.3 MMOL/L (3.5-5.1); Total Protein 6.2 G/DL (6.4-8.3)
[2018-05-21] MEDS: CALCIUM (CARBONATE)/VITAMIN D 500 MG-200 UNIT TABLET PO SCH (09:39)
[2018-05-21] MEDS: MONTELUKAST 10 MG TABLET PO SCH (09:39)
[2018-05-21] MEDS: DULoxetine 30 MG CAPSULE PO SCH (09:39)
[2018-05-21] MEDS: FLUCONAZOLE 200 MG TABLET PO SCH (09:39)
[2018-05-21] MEDS: hydrALAZINE 10 MG TABLET PO SCH (09:39)
[2018-05-21] MEDS: PREGABALIN 100 MG CAPSULE PO SCH ×2 (09:39→21:39)
[2018-05-21] MEDS: LACTOBACILLUS RHAMNOSUS GG CAPSULE PO SCH ×2 (09:39→21:38)
[2018-05-21] MEDS: FERROUS SULFATE 325 MG TABLET PO SCH (09:40)
[2018-05-21] MEDS: POTASSIUM CHLORIDE 8 MEQ CAPSULE PO SCH ×2 (09:40→21:39)
[2018-05-21] MEDS: METOPROLOL TARTRATE 50 MG TABLET PO SCH (09:40)
[2018-05-21] MEDS: PANTOPRAZOLE 40 MG TABLET PO SCH (09:40)
[2018-05-21] MEDS: diphenhydrAMINE 50 MG/1 ML VIAL IV SCH (09:40)
[2018-05-21] MEDS: DEXAMETHASONE 10 MG/1 ML VIAL IV SCH (09:41)
[2018-05-21] MEDS: INSULIN GLARGINE 100 UNIT/ML SUBCUT SCH (09:41)
[2018-05-21] MEDS: INSULIN LISPRO 100 UNIT/ML SUBCUT SCH ×4 (09:42→21:46)
[2018-05-21] MEDS: GRANISETRON 1 MG/1 ML VIAL IV SCH (09:42)
[2018-05-21] MEDS: ASPIRIN CHEW 81 MG TABLET PO SCH (09:42)
[2018-05-21] MEDS: TRIAMCINOLONE 0.1% DENTAL PASTE 5 GM TUBE TOP SCH ×3 (09:43→21:40)
[2018-05-21] MEDS: MUPIROCIN 2% OINT 22 GM TUBE TOP SCH ×2 (09:43→21:40)
[2018-05-21] MEDS: FLUTICASONE 50 MCG NASAL SPRAY 16 GM BOTTLE BOTH NARES SCH (09:43)
[2018-05-21] MEDS: ENOXAPARIN 40 MG/0.4 ML SYRINGE SUBCUT SCH (09:43)
[2018-05-21] MEDS: DESITIN 4OZ/NYSTATIN 15 GRAM MIXTURE PASTE TOP SCH ×2 (09:43→21:40)
[2018-05-21] MEDS: SUCRALFATE 1 GM/10 ML UDCUP PO SCH ×4 (09:43→21:40)
[2018-05-21] MEDS ORDERED: hydrALAZINE 10 MG TABLET PO SCH (10:00)
[2018-05-21] MEDS: ETOPOSIDE 120 MG in SODIUM CHLORIDE 0.9% 500 ML IV SCH (13:55)
[2018-05-21] MEDS: hydrALAZINE 25 MG TABLET PO SCH ×2 (17:10→21:38)
[2018-05-21] MEDS: oxyCODONE/ACETAMINOPHEN 5-325 MG TABLET PO PRN (21:33)
[2018-05-21] MEDS: THEOPHYLLINE ER (24 HR) 200 MG CAPSULE PO SCH (21:38)
[2018-05-21] MEDS: FENOFIBRATE 145 MG TABLET PO SCH (21:39)
[2018-05-22] MEDS: ALBUTEROL/IPRATROPIUM 3 ML NEB RESP TX SCH ×4 (00:14→19:43)
[2018-05-22] MEDS: methylPREDNISolone SOD SUC 125 MG/2 ML VIAL IV SCH ×3 (01:46→17:57)
[2018-05-22 08:00] LABS: Basophils % 0.1 % (0.0-0.8); Hematocrit 36.5 VOL% (35.7-47.0); Hemoglobin 11.4 GM/DL (12.0-16.0); Immature Granulocytes % 0.4 %; Immature Granulocytes Absolute 0.04 #; Lymphocytes # 0.1 10*3/uL (1.4-4.0); Lymphocytes % 1.3 % (21.3-54.2); Mean Corpuscular HGB Conc 31.2 GM/DL (32-36); Mean Corpuscular Hemoglobin 30 PG (27-34); Mean Corpuscular Volume 94.3 FL (87-102); Mean Platelet Volume 12.8 FL (9.6-12.0); Monocytes # 0.1 10*3/uL (0.11-0.8); Monocytes % 0.6 % (1.7-12.7); Neutrophils # 9.9 10*3/uL (1.4-7.4); Neutrophils % 97.6 % (38.7-73.9); Platelet Count 136 T/CUMM (130-400); Red Blood Count 3.87 MC/CUMM (3.8-5.5); White Blood Count 10.2 T/CUMM (4-12)
[2018-05-22 08:21] LABS: Hypochromasia 1+; Lymphocytes 4 % (20-55); Platelet Estimate Adequate; Segmented Neutrophils 96 % (50-85); Total Cells Counted 100
[2018-05-22 08:22] LABS: Microcytosis Slight
[2018-05-22 08:39] LABS: Albumin 2.8 G/DL (3.4-5.0); Bilirubin,Total 0.7 MG/DL (0.2-1.0); Calcium 9.6 MG/DL (8.5-10.1); Potassium 4.7 MMOL/L (3.5-5.1); Total Protein 6.3 G/DL (6.4-8.3)
[2018-05-22] MEDS: CALCIUM (CARBONATE)/VITAMIN D 500 MG-200 UNIT TABLET PO SCH (09:59)
[2018-05-22] MEDS: FLUCONAZOLE 200 MG TABLET PO SCH (09:59)
[2018-05-22] MEDS: POTASSIUM CHLORIDE 8 MEQ CAPSULE PO SCH ×2 (09:59→20:54)
[2018-05-22] MEDS: DULoxetine 30 MG CAPSULE PO SCH (09:59)
[2018-05-22] MEDS: PANTOPRAZOLE 40 MG TABLET PO SCH (10:00)
[2018-05-22] MEDS: LACTOBACILLUS RHAMNOSUS GG CAPSULE PO SCH ×2 (10:00→20:54)
[2018-05-22] MEDS: MONTELUKAST 10 MG TABLET PO SCH (10:00)
[2018-05-22] MEDS: ASPIRIN CHEW 81 MG TABLET PO SCH (10:00)
[2018-05-22] MEDS: ENOXAPARIN 40 MG/0.4 ML SYRINGE SUBCUT SCH (10:00)
[2018-05-22] MEDS: METOPROLOL TARTRATE 50 MG TABLET PO SCH (10:00)
[2018-05-22] MEDS: hydrALAZINE 25 MG TABLET PO SCH ×3 (10:00→20:53)
[2018-05-22] MEDS: SUCRALFATE 1 GM/10 ML UDCUP PO SCH ×4 (10:01→20:54)
[2018-05-22] MEDS: INSULIN LISPRO 100 UNIT/ML SUBCUT SCH ×4 (10:01→20:57)
[2018-05-22] MEDS: INSULIN GLARGINE 100 UNIT/ML SUBCUT SCH ×2 (10:01→20:55)
[2018-05-22] MEDS: PREGABALIN 100 MG CAPSULE PO SCH ×2 (10:04→20:54)
[2018-05-22] MEDS: TRIAMCINOLONE 0.1% DENTAL PASTE 5 GM TUBE TOP SCH ×3 (10:05→21:02)
[2018-05-22] MEDS: FLUTICASONE 50 MCG NASAL SPRAY 16 GM BOTTLE BOTH NARES SCH (10:05)
[2018-05-22] MEDS: MUPIROCIN 2% OINT 22 GM TUBE TOP SCH ×2 (10:05→21:02)
[2018-05-22] MEDS: DESITIN 4OZ/NYSTATIN 15 GRAM MIXTURE PASTE TOP SCH ×2 (10:05→21:01)
[2018-05-22] MEDS: DEXT 5% NACL 0.45% KCL 40 MEQ 40 MEQ/1,000 ML BAG IV SCH (17:57)
[2018-05-22] MEDS: THEOPHYLLINE ER (24 HR) 200 MG CAPSULE PO SCH (20:54)
[2018-05-22] MEDS: FENOFIBRATE 145 MG TABLET PO SCH (20:54)
[2018-05-23] MEDS: ALBUTEROL/IPRATROPIUM 3 ML NEB RESP TX SCH ×4 (00:10→21:01)
[2018-05-23] MEDS: methylPREDNISolone SOD SUC 125 MG/2 ML VIAL IV SCH ×3 (01:34→17:02)
[2018-05-23 05:51] LABS: Basophils % 0.2 % (0.0-0.8); Hematocrit 34.4 VOL% (35.7-47.0); Hemoglobin 10.8 GM/DL (12.0-16.0); Lymphocytes # 0.1 10*3/uL (1.4-4.0); Lymphocytes % 1.1 % (21.3-54.2); Mean Corpuscular HGB Conc 31.4 GM/DL (32-36); Mean Corpuscular Hemoglobin 29 PG (27-34); Mean Corpuscular Volume 93.5 FL (87-102); Mean Platelet Volume 12.7 FL (9.6-12.0); Monocytes # 0.1 10*3/uL (0.11-0.8); Monocytes % 0.5 % (1.7-12.7); Neutrophils % 97.2 % (38.7-73.9); Platelet Count 127 T/CUMM (130-400); Red Blood Count 3.68 MC/CUMM (3.8-5.5); Red Cell Distribution Width 15.1 % (9.3-17.3); White Blood Count 10.3 T/CUMM (4-12)
[2018-05-23 06:11] LABS: Albumin 2.8 G/DL (3.4-5.0); Bilirubin,Total 0.9 MG/DL (0.2-1.0); Calcium 9.6 MG/DL (8.5-10.1); Potassium 4.3 MMOL/L (3.5-5.1); Total Protein 6.1 G/DL (6.4-8.3)
[2018-05-23 06:23] LABS: Lymphocytes 1 % (20-55); Platelet Estimate Adequate; Polychromasia Few; Segmented Neutrophils 99 % (50-85); Total Cells Counted 100
[2018-05-23] MEDS: POTASSIUM CHLORIDE 8 MEQ CAPSULE PO SCH ×2 (09:13→21:36)
[2018-05-23] MEDS: MONTELUKAST 10 MG TABLET PO SCH (09:13)
[2018-05-23] MEDS: CALCIUM (CARBONATE)/VITAMIN D 500 MG-200 UNIT TABLET PO SCH (09:13)
[2018-05-23] MEDS: DULoxetine 30 MG CAPSULE PO SCH (09:13)
[2018-05-23] MEDS: hydrALAZINE 25 MG TABLET PO SCH ×3 (09:14→23:09)
[2018-05-23] MEDS: FERROUS SULFATE 325 MG TABLET PO SCH (09:14)
[2018-05-23] MEDS: LACTOBACILLUS RHAMNOSUS GG CAPSULE PO SCH ×2 (09:14→21:36)
[2018-05-23] MEDS: FLUCONAZOLE 200 MG TABLET PO SCH (09:14)
[2018-05-23] MEDS: ASPIRIN CHEW 81 MG TABLET PO SCH (09:14)
[2018-05-23] MEDS: PREGABALIN 100 MG CAPSULE PO SCH ×2 (09:14→21:36)
[2018-05-23] MEDS: SUCRALFATE 1 GM/10 ML UDCUP PO SCH ×4 (09:15→21:36)
[2018-05-23] MEDS: PANTOPRAZOLE 40 MG TABLET PO SCH (09:15)
[2018-05-23] MEDS: INSULIN GLARGINE 100 UNIT/ML SUBCUT SCH ×2 (09:15→21:37)
[2018-05-23] MEDS: ENOXAPARIN 40 MG/0.4 ML SYRINGE SUBCUT SCH (09:17)
[2018-05-23] MEDS: INSULIN LISPRO 100 UNIT/ML SUBCUT SCH ×4 (09:17→21:38)
[2018-05-23] MEDS: DESITIN 4OZ/NYSTATIN 15 GRAM MIXTURE PASTE TOP SCH ×2 (09:30→21:44)
[2018-05-23] MEDS: MUPIROCIN 2% OINT 22 GM TUBE TOP SCH ×2 (09:31→21:38)
[2018-05-23] MEDS: FLUTICASONE 50 MCG NASAL SPRAY 16 GM BOTTLE BOTH NARES SCH (09:31)
[2018-05-23] MEDS: METOPROLOL TARTRATE 50 MG TABLET PO SCH (09:33)
[2018-05-23] MEDS: TRIAMCINOLONE 0.1% DENTAL PASTE 5 GM TUBE TOP SCH ×3 (09:35→21:39)
[2018-05-23] MEDS: DEXT 5% NACL 0.45% KCL 40 MEQ 40 MEQ/1,000 ML BAG IV SCH (14:54)
[2018-05-23] MEDS: THEOPHYLLINE ER (24 HR) 200 MG CAPSULE PO SCH (21:36)
[2018-05-23] MEDS: FENOFIBRATE 145 MG TABLET PO SCH (21:37)
[2018-05-24] MEDS: ALBUTEROL/IPRATROPIUM 3 ML NEB RESP TX SCH ×4 (00:52→18:58)
[2018-05-24] MEDS: methylPREDNISolone SOD SUC 125 MG/2 ML VIAL IV SCH ×3 (00:59→19:06)
[2018-05-24] MEDS: ENOXAPARIN 40 MG/0.4 ML SYRINGE SUBCUT SCH (09:05)
[2018-05-24] MEDS: PANTOPRAZOLE 40 MG TABLET PO SCH (09:24)
[2018-05-24] MEDS: DULoxetine 30 MG CAPSULE PO SCH (09:24)
[2018-05-24] MEDS: CALCIUM (CARBONATE)/VITAMIN D 500 MG-200 UNIT TABLET PO SCH (09:25)
[2018-05-24] MEDS: METOPROLOL TARTRATE 50 MG TABLET PO SCH (09:25)
[2018-05-24] MEDS: MONTELUKAST 10 MG TABLET PO SCH (09:25)
[2018-05-24] MEDS: PREGABALIN 100 MG CAPSULE PO SCH ×2 (09:25→20:56)
[2018-05-24] MEDS: hydrALAZINE 25 MG TABLET PO SCH ×3 (09:25→20:54)
[2018-05-24] MEDS: LACTOBACILLUS RHAMNOSUS GG CAPSULE PO SCH ×2 (09:25→20:54)
[2018-05-24] MEDS: POTASSIUM CHLORIDE 8 MEQ CAPSULE PO SCH ×2 (09:25→20:56)
[2018-05-24] MEDS: INSULIN LISPRO 100 UNIT/ML SUBCUT SCH ×4 (09:28→20:55)
[2018-05-24] MEDS: INSULIN GLARGINE 100 UNIT/ML SUBCUT SCH ×2 (09:28→20:56)
[2018-05-24] MEDS: SUCRALFATE 1 GM/10 ML UDCUP PO SCH ×4 (09:28→20:55)
[2018-05-24] MEDS: DESITIN 4OZ/NYSTATIN 15 GRAM MIXTURE PASTE TOP SCH ×2 (09:30→20:56)
[2018-05-24] MEDS: MUPIROCIN 2% OINT 22 GM TUBE TOP SCH ×2 (09:30→20:54)
[2018-05-24] MEDS: TRIAMCINOLONE 0.1% DENTAL PASTE 5 GM TUBE TOP SCH ×4 (09:30→21:09)
[2018-05-24] MEDS: FLUTICASONE 50 MCG NASAL SPRAY 16 GM BOTTLE BOTH NARES SCH (09:30)
[2018-05-24] MEDS: DEXT 5% NACL 0.45% KCL 40 MEQ 40 MEQ/1,000 ML BAG IV SCH (11:36)
[2018-05-24] MEDS: FENOFIBRATE 145 MG TABLET PO SCH (20:56)
[2018-05-24] MEDS: THEOPHYLLINE ER (24 HR) 200 MG CAPSULE PO SCH (20:56)
[2018-05-25] MEDS: ALBUTEROL/IPRATROPIUM 3 ML NEB RESP TX SCH ×4 (00:47→20:00)
[2018-05-25] MEDS: methylPREDNISolone SOD SUC 125 MG/2 ML VIAL IV SCH ×3 (01:13→17:15)
[2018-05-25 05:45] LABS: Basophils # 0.1 10*3/uL (0.0-0.2); Basophils % 0.7 % (0.0-0.8); Hematocrit 32.5 VOL% (35.7-47.0); Hemoglobin 10.1 GM/DL (12.0-16.0); Immature Granulocytes % 6.1 %; Immature Granulocytes Absolute 0.58 #; Lymphocytes # 0.1 10*3/uL (1.4-4.0); Lymphocytes % 1.3 % (21.3-54.2); Mean Corpuscular HGB Conc 31.1 GM/DL (32-36); Mean Corpuscular Hemoglobin 29 PG (27-34); Mean Corpuscular Volume 93.7 FL (87-102); Mean Platelet Volume 13.6 FL (9.6-12.0); Monocytes % 0.3 % (1.7-12.7); Neutrophils # 8.7 10*3/uL (1.4-7.4); Neutrophils % 91.6 % (38.7-73.9); Platelet Count 99 T/CUMM (130-400); Red Blood Count 3.47 MC/CUMM (3.8-5.5); White Blood Count 9.5 T/CUMM (4-12)
[2018-05-25 06:21] LABS: Lymphocytes 1 % (20-55); Platelet Estimate Decreased; Segmented Neutrophils 99 % (50-85); Total Cells Counted 100
[2018-05-25 08:31] LABS: Albumin 2.7 G/DL (3.4-5.0); Bilirubin,Total 0.6 MG/DL (0.2-1.0); Calcium 9.8 MG/DL (8.5-10.1); Osmolality,Calculated 288.8 MOS/KG (273-304); Potassium 4.4 MMOL/L (3.5-5.1)
[2018-05-25] MEDS: INSULIN GLARGINE 100 UNIT/ML SUBCUT SCH ×2 (10:15→21:28)
[2018-05-25] MEDS: INSULIN LISPRO 100 UNIT/ML SUBCUT SCH ×4 (10:15→21:32)
[2018-05-25] MEDS: SUCRALFATE 1 GM/10 ML UDCUP PO SCH ×4 (10:15→21:30)
[2018-05-25] MEDS: DULoxetine 30 MG CAPSULE PO SCH (10:16)
[2018-05-25] MEDS: MONTELUKAST 10 MG TABLET PO SCH (10:16)
[2018-05-25] MEDS: CALCIUM (CARBONATE)/VITAMIN D 500 MG-200 UNIT TABLET PO SCH (10:16)
[2018-05-25] MEDS: POTASSIUM CHLORIDE 8 MEQ CAPSULE PO SCH ×2 (10:16→21:31)
[2018-05-25] MEDS: METOPROLOL TARTRATE 50 MG TABLET PO SCH (10:17)
[2018-05-25] MEDS: LACTOBACILLUS RHAMNOSUS GG CAPSULE PO SCH ×2 (10:17→21:31)
[2018-05-25] MEDS: PANTOPRAZOLE 40 MG TABLET PO SCH (10:17)
[2018-05-25] MEDS: FERROUS SULFATE 325 MG TABLET PO SCH (10:17)
[2018-05-25] MEDS: PREGABALIN 100 MG CAPSULE PO SCH ×2 (10:17→21:31)
[2018-05-25] MEDS: MUPIROCIN 2% OINT 22 GM TUBE TOP SCH ×2 (10:18→21:32)
[2018-05-25] MEDS: TRIAMCINOLONE 0.1% DENTAL PASTE 5 GM TUBE TOP SCH ×3 (10:18→21:31)
[2018-05-25] MEDS: FLUTICASONE 50 MCG NASAL SPRAY 16 GM BOTTLE BOTH NARES SCH (10:18)
[2018-05-25] MEDS: hydrALAZINE 25 MG TABLET PO SCH ×3 (10:21→21:30)
[2018-05-25] MEDS: DORNASE ALFA 2.5 MG/2.5 ML VIAL RESP TX SCH ×2 (11:17→20:06)
[2018-05-25] MEDS: DESITIN 4OZ/NYSTATIN 15 GRAM MIXTURE PASTE TOP SCH ×2 (12:57→21:33)
[2018-05-25] MEDS: FENOFIBRATE 145 MG TABLET PO SCH (21:30)
[2018-05-25] MEDS: THEOPHYLLINE ER (24 HR) 200 MG CAPSULE PO SCH (21:30)
[2018-05-26] MEDS: ALBUTEROL/IPRATROPIUM 3 ML NEB RESP TX SCH ×2 (00:40→07:06)
[2018-05-26] MEDS: methylPREDNISolone SOD SUC 125 MG/2 ML VIAL IV SCH ×2 (01:16→09:04)
[2018-05-26] MEDS: DEXT 5% NACL 0.45% KCL 40 MEQ 40 MEQ/1,000 ML BAG IV SCH ×2 (04:10→14:31)
[2018-05-26 05:17] LABS: Basophils # 0.1 10*3/uL (0.0-0.2); Hematocrit 33.3 VOL% (35.7-47.0); Hemoglobin 10.4 GM/DL (12.0-16.0); Immature Granulocytes % 8.1 %; Immature Granulocytes Absolute 0.49 #; Lymphocytes # 0.2 10*3/uL (1.4-4.0); Lymphocytes % 2.8 % (21.3-54.2); Mean Corpuscular HGB Conc 31.2 GM/DL (32-36); Mean Corpuscular Hemoglobin 30 PG (27-34); Mean Corpuscular Volume 94.3 FL (87-102); Mean Platelet Volume 13.3 FL (9.6-12.0); Monocytes % 0.2 % (1.7-12.7); Neutrophils # 5.3 10*3/uL (1.4-7.4); Neutrophils % 87.9 % (38.7-73.9); Red Blood Count 3.53 MC/CUMM (3.8-5.5)
[2018-05-26 05:21] LABS: Platelet Count 81 T/CUMM (130-400)
[2018-05-26 05:29] LABS: Albumin 2.9 G/DL (3.4-5.0); Calcium 9.7 MG/DL (8.5-10.1); Osmolality,Calculated 289.7 MOS/KG (273-304); Potassium 4.6 MMOL/L (3.5-5.1); Total Protein 6.3 G/DL (6.4-8.3)
[2018-05-26 06:00] LABS: Lymphocytes 2 % (20-55); Platelet Estimate Decreased; Polychromasia Few; Segmented Neutrophils 97 % (50-85); Total Cells Counted 100
[2018-05-26] MEDS: DORNASE ALFA 2.5 MG/2.5 ML VIAL RESP TX SCH (07:11)
[2018-05-26] MEDS: SUCRALFATE 1 GM/10 ML UDCUP PO SCH ×2 (09:05→13:05)
[2018-05-26] MEDS: INSULIN LISPRO 100 UNIT/ML SUBCUT SCH ×2 (09:05→13:05)
[2018-05-26] MEDS: MUPIROCIN 2% OINT 22 GM TUBE TOP SCH (09:06)
[2018-05-26] MEDS: FLUTICASONE 50 MCG NASAL SPRAY 16 GM BOTTLE BOTH NARES SCH (09:06)
[2018-05-26] MEDS: TRIAMCINOLONE 0.1% DENTAL PASTE 5 GM TUBE TOP SCH ×2 (09:06→14:32)
[2018-05-26] MEDS ORDERED: PROPOFOL 200 MG/20 ML VIAL IV ONE (10:00)
[2018-05-26] MEDS ORDERED: LIDOCAINE 2% 5 ML VIAL ONE (10:00)
[2018-05-26 12:48] VITALS: BP 130/81
[2018-05-26] MEDS: INSULIN GLARGINE 100 UNIT/ML SUBCUT SCH (13:05)
[2018-05-26] MEDS: MONTELUKAST 10 MG TABLET PO SCH (13:06)
[2018-05-26] MEDS: POTASSIUM CHLORIDE 8 MEQ CAPSULE PO SCH (13:06)
[2018-05-26] MEDS: hydrALAZINE 25 MG TABLET PO SCH (13:07)
[2018-05-26] MEDS: PREGABALIN 100 MG CAPSULE PO SCH (13:07)
[2018-05-26] MEDS: DULoxetine 30 MG CAPSULE PO SCH (13:07)
[2018-05-26] MEDS: PANTOPRAZOLE 40 MG TABLET PO SCH (13:07)
[2018-05-26] MEDS: LACTOBACILLUS RHAMNOSUS GG CAPSULE PO SCH (13:08)
[2018-05-26] MEDS: METOPROLOL TARTRATE 50 MG TABLET PO SCH (13:08)
[2018-05-26] MEDS: CALCIUM (CARBONATE)/VITAMIN D 500 MG-200 UNIT TABLET PO SCH (13:08)
[2018-05-26] MEDS ORDERED: HEPARIN LOCK FLUSH 500 UNIT/5 ML SYRINGE IV ONE (14:30)
[2018-05-26] MEDS: DESITIN 4OZ/NYSTATIN 15 GRAM MIXTURE PASTE TOP SCH (14:31)
== END 2018-05-26 15:40 | DRG 193 ==
LOC: EDBD → EDUNIT# → N.ED 06:13 → SUATTDRO 08:20 → N.EDINP 08:20 → N.ICU 09:18 → N.4E 05-14 10:25
PROVIDERS: ADMIT Internal Medicine; ATTEND Internal Medicine